=== PATIENT | female | born 1945 | race Caucasian/White ===

== ENCOUNTER → 2016-09-15 | Outpatient (CLI) | payer MEDICARE ==
[2016-09-15 15:04] LABS: Blood Urea Nitrogen 9 mg/dL (7-17); Non-African American GFR(MDRD) >60 (>60 ml/min/1.73 sqM)
--- NOTE | 2016-09-15 15:50 | CT ---
EXAMINATION TYPE: CT brain w con DATE OF EXAM: 09/15/2016 3:32 PM COMPARISON: NONE INDICATION: History of breast cancer. Visual disturbance x 4 days. DLP: 1138.00 mGycm, Automated exposure control for dose reduction was used. CONTRAST: CT scan of the head is performed with IV Contrast, patient injected with 100 mL of Omnipaq ue 300. CT of the brain is performed utilizing 3 mm thick sections through the posterior fossa and 3 mm thick sections through the remaining calvarium. Study is performed within 24 hours of arrival to the hosp ital. No abnormal hyperdensity is present to suggest an acute intracranial hemorrhage. No mass lesion is evident. No acute infarcts are evident. No abnormal enhancement is evident contrast. Ventricles and sulci are appropriate for the patient age. Paranasal sinuses and mastoid air cells within the [id number] are clear. IMPRESSIONS: 1. Normal postcontrast CT brain
== END | disposition home or self-care (01) ==
LOC: RADCTMAIN 14:31
PROVIDERS: ATTEND Internal Medicine Hematology & Oncology
DX: C50.919 Malignant neoplasm of unspecified site of unspecified female breast (principal); H53.10 Unspecified subjective visual disturbances
CPT/HCPCS: 82565; 84520; 70460; 36415; Q9967

== ENCOUNTER 2016-10-10 11:17 | Inpatient (IN) | payer MEDICARE ==
[2016-10-10] MEDS ORDERED: PANTOPRAZOLE 40 MG/10 ML VIAL IVP STA (11:28)
[2016-10-10] MEDS ORDERED: ONDANSETRON 4 MG/2 ML VIAL IVP STA (11:28)
[2016-10-10] MEDS ORDERED: SODIUM CHLORIDE 0.9% 1,000 ML IV STA (11:28)
--- NOTE | 2016-10-10 11:49 | ED ---
General Adult HPI - General Chief complaint: GI Bleed Stated complaint: rectal bleeding (Chemo Patient) Time Seen by Provider: 10/10/16 11:24 Source: patient, RN notes reviewed, old records reviewed Mode of arrival: ambulatory Limitations: no limitations - History of Present Illness Initial comments: This is a 70-year-old female in the ER for evaluation of GI bleeding, blood in stool. Patient's history of being on chemotherapy with CA. Patient had mild bleeding throughout the weekend but became more concerned when she had a bloody bowel movement with diarrhea this morning. Patient's not currently on blood thinners. Has no abdominal pain no vomiting of blood. No prior history of similar issue. Patient does feel mildly lightheaded and dizzy and feels like her heart is racing - Related Data Home Medications Medication Instructions Recorded Confirmed Levothyroxine Sodium [Synthroid] 100 mcg PO DAILY 08/03/16 10/10/16 amLODIPine [Norvasc] 10 mg PO HS 08/03/16 10/10/16 Ondansetron HCl [Zofran] 4 mg PO Q6H PRN 10/10/16 10/10/16 Allergies Allergy/AdvReac Type Severity Reaction Status Date / Time acetaminophen [From Tylenol] Allergy Nausea Verified 10/10/16 12:10 codeine Allergy Nausea & Verified 10/10/16 12:10 Vomiting Review of Systems ROS Statement: Those systems with pertinent positive or pertinent negative responses have been documented in the HPI. ROS Other: All systems not noted in ROS Statement are negative. Past Medical History Past Medical History: Cancer, Hypertension, Thyroid Disorder Additional Past Medical History / Comment(s): BREAST CANCER History of Any Multi-Drug Resistant Organisms: None Reported Past Surgical History: Breast Surgery, Hysterectomy Additional Past Surgical History / Comment(s): BREAST BIOPSY Past Anesthesia/Blood Transfusion Reactions: Motion Sickness Past Psychological History: No Psychological Hx Reported Smoking Status: Former smoker Past Alcohol Use History: None Reported Additional Past Alcohol Use History / Comment(s): STARTED SMOKING AT AGE 42 AND QUIT AGE 43 Past Drug Use History: None Reported - Past Family History Mother Family Medical History: Cancer Additional Family Medical History / Comment(s): MELENOMA Sister(s) Family Medical History: Cancer Additional Family Medical History / Comment(s): BREAST CANCER, RECTAL CANCER ( SISTERS) General Exam Limitations: no limitations General appearance: alert, in no apparent distress, anxious Head exam: Present: atraumatic, normocephalic, normal inspection Eye exam: Present: normal appearance, PERRL, EOMI. Absent: scleral icterus, conjunctival injection, periorbital swelling ENT exam: Present: normal exam, mucous membranes moist Neck exam: Present: normal inspection. Absent: tenderness, meningismus, lymphadenopathy Respiratory exam: Present: normal lung sounds bilaterally. Absent: respiratory distress, wheezes, rales, rhonchi, stridor Cardiovascular Exam: Present: normal rhythm, tachycardia, normal heart sounds. Absent: systolic murmur, diastolic murmur, rubs, gallop, clicks GI/Abdominal exam: Present: soft, normal bowel sounds. Absent: distended, tenderness, guarding, rebound, rigid Extremities exam: Present: normal inspection, full ROM, normal capillary refill. Absent: tenderness, pedal edema, joint swelling, calf tenderness Back exam: Present: normal inspection Neurological exam: Present: alert, oriented X3, CN II-XII intact Psychiatric exam: Present: normal affect, normal mood Skin exam: Present: warm, dry, intact, normal color. Absent: rash Course Vital Signs 10/10/16 10/10/16 10/10/16 11:28 12:09 13:34 Temperature 97.3 F L 97.6 F 98.3 F Pulse Rate 119 H 108 H 109 H Respiratory 18 20 20 Rate Blood Pressure 147/79 125/70 116/61 O2 Sat by Pulse 96 96 96 Oximetry - Reevaluation(s) Reevaluation #1: 10/10/16 14:00 Patient is without bloody bowel movement here in the emergency room Medical Decision Making - Medical Decision Making 70 [address] E with positive GI bleed theo blood in stool, no prior hemoglobin to compare current hemoglobin of 12 to, patient remains tachycardic will resuscitate and admit for monitoring of serial hemoglobins and GI evaluation - Lab Data Result diagrams: 10/10/16 11:45 10/10/16 11:45 Lab Results 10/10/16 10/10/16 10/10/16 Range/Units 11:45 11:45 11:45 WBC 4.7 (3.8-10.6) k/uL RBC 3.93 (3.80-5.40) m/uL Hgb 12.0 (11.4-16.0) gm/dL Hct 35.5 (34.0-46.0) % MCV 90.5 (80.0-100.0) fL MCH 30.4 (25.0-35.0) pg MCHC 33.6 (31.0-37.0) g/dL RDW 19.7 H (11.5-15.5) % Plt Count 244 (150-450) k/uL Neutrophils % 64 % Lymphocytes % 28 % Monocytes % 4 % Eosinophils % 0 % Basophils % 0 % Neutrophils # 3.0 (1.3-7.7) k/uL Lymphocytes # 1.3 (1.0-4.8) k/uL Monocytes # 0.2 (0-1.0) k/uL Eosinophils # 0.0 (0-0.7) k/uL Basophils # 0.0 (0-0.2) k/uL Anisocytosis Slight Macrocytosis Slight PT (9.0-12.0) sec INR (<1.1) APTT (22.0-30.0) sec Sodium 140 (137-145) mmol/L Potassium 4.2 (3.5-5.1) mmol/L Chloride 105 (98-107) mmol/L Carbon Dioxide 23 (22-30) mmol/L Anion Gap 12 mmol/L BUN 7 (7-17) mg/dL Creatinine 0.69 (0.52-1.04) mg/dL Est GFR (MDRD) Af Amer >60 (>60 ml/min/1.73 sqM) Est GFR (MDRD) Non-Af >60 (>60 ml/min/1.73 sqM) Glucose 126 H (74-99) mg/dL Calcium 9.0 (8.4-10.2) mg/dL Magnesium 1.8 (1.6-2.3) mg/dL Total Bilirubin 0.8 (0.2-1.3) mg/dL AST 25 (14-36) U/L ALT 33 (9-52) U/L Alkaline Phosphatase 90 (38-126) U/L Total Creatine Kinase 56 (30-135) U/L CK-MB (CK-2) 0.4 (0.0-2.4) ng/mL CK-MB (CK-2) Rel Index 0.7 Troponin I 0.030 (0.000-0.034) ng/mL Total Protein 6.6 (6.3-8.2) g/dL Albumin 3.6 (3.5-5.0) g/dL Lipase 118 (23-300) U/L 10/10/16 Range/Units 11:45 WBC (3.8-10.6) k/uL RBC (3.80-5.40) m/uL Hgb (11.4-16.0) gm/dL Hct (34.0-46.0) % MCV (80.0-100.0) fL MCH (25.0-35.0) pg MCHC (31.0-37.0) g/dL RDW (11.5-15.5) % Plt Count (150-450) k/uL Neutrophils % % Lymphocytes % % Monocytes % % Eosinophils % % Basophils % % Neutrophils # (1.3-7.7) k/uL Lymphocytes # (1.0-4.8) k/uL Monocytes # (0-1.0) k/uL Eosinophils # (0-0.7) k/uL Basophils # (0-0.2) k/uL Anisocytosis Macrocytosis PT 10.2 (9.0-12.0) sec INR 1.0 (<1.1) APTT 24.0 (22.0-30.0) sec Sodium (137-145) mmol/L Potassium (3.5-5.1) mmol/L Chloride (98-107) mmol/L Carbon Dioxide (22-30) mmol/L Anion Gap mmol/L BUN (7-17) mg/dL Creatinine (0.52-1.04) mg/dL Est GFR (MDRD) Af Amer (>60 ml/min/1.73 sqM) Est GFR (MDRD) Non-Af (>60 ml/min/1.73 sqM) Glucose (74-99) mg/dL Calcium (8.4-10.2) mg/dL Magnesium (1.6-2.3) mg/dL Total Bilirubin (0.2-1.3) mg/dL AST (14-36) U/L ALT (9-52) U/L Alkaline Phosphatase (38-126) U/L Total Creatine Kinase (30-135) U/L CK-MB (CK-2) (0.0-2.4) ng/mL CK-MB (CK-2) Rel Index Troponin I (0.000-0.034) ng/mL Total Protein (6.3-8.2) g/dL Albumin (3.5-5.0) g/dL Lipase (23-300) U/L Disposition Clinical Impression: Gastrointestinal hemorrhage, Breast cancer, left breast Disposition: ADMITTED IP TO THIS HOSP Condition: Fair Referrals: Jossue Galloway DO [Primary Care Provider] - 1-2 days
[2016-10-10 11:54] LABS: Anisocytosis Slight; Basophils % (A) 0 %; CH 30.4; CHCM 33.8; Eosinophils % (A) 0 %; HCT 35.5 % (34.0-46.0); HDW 3.17; Luc # (Auto) 0.19; Luc % (Auto) 4; Lymphocytes # (A) 1.3 k/uL (1.0-4.8); Lymphocytes % (A) 28 %; MCH 30.4 pg (25.0-35.0); MCHC 33.6 g/dL (31.0-37.0); MCV 90.5 fL (80.0-100.0); Macrocytosis Slight; Mean Platelet Volume 7.5; Monocytes # (A) 0.2 k/uL (0-1.0); Monocytes % (A) 4 %; Neutrophils % (A) 64 %; RBC 3.93 m/uL (3.80-5.40); RDW 19.7 % (11.5-15.5); WBC 4.7 k/uL (3.8-10.6); WBC (Perox) 4.81
[2016-10-10 12:04] LABS: Prothrombin Time 10.2 sec (9.0-12.0)
[2016-10-10 12:10] LABS: ALT 33 U/L (9-52); AST 25 U/L (14-36); Alkaline Phosphatase 90 U/L (38-126); Anion Gap 12 mmol/L; Blood Urea Nitrogen 7 mg/dL (7-17); Carbon Dioxide 23 mmol/L (22-30); Chloride 105 mmol/L (98-107); Glucose 126 mg/dL (74-99); Magnesium 1.8 mg/dL (1.6-2.3); Non-African American GFR(MDRD) >60 (>60 ml/min/1.73 sqM); Potassium 4.2 mmol/L (3.5-5.1); Sodium 140 mmol/L (137-145); Total Bilirubin 0.8 mg/dL (0.2-1.3); Total Protein 6.6 g/dL (6.3-8.2)
[2016-10-10 12:45] LABS: Creatine Kinase MB 0.4 ng/mL (0.0-2.4); Troponin I 0.03 ng/mL (0.000-0.034)
[2016-10-10] MEDS ORDERED: SODIUM CHLORIDE 0.9% 1,000 ML IV ONE (13:58)
[2016-10-10] MEDS ORDERED: ONDANSETRON 4 MG TAB PO PRN (22:44)
[2016-10-10] MEDS: amLODIPine 10 MG TAB PO SCH (23:09)
[2016-10-11] MEDS: LEVOTHYROXINE 100 MCG TAB PO SCH (05:53)
[2016-10-11 06:44] LABS: Anisocytosis Slight; CH 30.4; HCT 31.5 % (34.0-46.0); HDW 3.11; HGB 10.1 gm/dL (11.4-16.0); MCH 29.5 pg (25.0-35.0); MCHC 31.9 g/dL (31.0-37.0); MCV 92.6 fL (80.0-100.0); Macrocytosis Slight; Mean Platelet Volume 7.3; RBC 3.41 m/uL (3.80-5.40); RDW 19.9 % (11.5-15.5); WBC 4.2 k/uL (3.8-10.6)
--- NOTE | 2016-10-11 08:39 | P.CONS ---
History of Present Illness - Reason for Consult Consult date: 10/11/16 Bloody diarrhea Requesting physician: Steve Combs - History of Present Illness 70-year-old female patient of Dr. Jossue Cesar recently diagnosed with left breast carcinoma June 2016 status post chemotherapy 1 month presents with persistent loose bowel movements/diarrhea for the last month. Patient has been averaging 3 loose stools daily since starting chemotherapy yellow color in nature. Intermittent usage of antidiarrheals with some improvement. Yesterday she had a grossly bloody red loose bowel movement without clots 1. Additional bowel movements since then are yellow in color with flecks of red. Denies fever , chills, hematemesis, melena, or abdominal pain. Approximately 10-12 pound weight loss over last month with decreased appetite. No history of rectal bleeding. No history of colonoscopy. No recent antibiotics. White count 4.7. Hemoglobin 12 on admission currently 10.1. Platelet 220. INR 1.0. BUN 7. Creatinine 0.6. Review of Systems Constitutional: Denies fever, chills, sweats, weight gain, or loss. HEENT: Negative for migraines, blurred vision or loss, earaches, drainage, tinnitus, oral mucosal lesions, dysphagia, or odynophagia. CARDIAC: Hypertension. Negative for chest pain, arrhythmias, or palpitation. RESPIRATORY: Negative for shortness of breath, hemoptysis, cough, or sputum production. GI: See HPI for pertinent findings. : Negative for hematuria, urgency, frequency, polyuria, or dysuria. GYNc: Denies possibility of . Negative vaginal discharge. MUSCULOSKELETAL: Negative for muscle aches, swelling, arthritis, and arthralgias. NEUROLOGIC: Negative for stroke or TIA. ENDOCRINE: Hypothyroidism. SKIN: Negative for rash or itching. PSYCHIATRIC: Negative history for depression and anxiety All systems: negative (See HPI) Past Medical History Past Medical History: Cancer, Hypertension, Thyroid Disorder Additional Past Medical History / Comment(s): L BREAST CANCER, hypothyroid History of Any Multi-Drug Resistant Organisms: None Reported Past Surgical History: Breast Surgery, Hysterectomy Additional Past Surgical History / Comment(s): L BREAST BIOPSY x2 (some tissue removed), R mediport Past Anesthesia/Blood Transfusion Reactions: Motion Sickness, Postoperative Nausea & Vomiting (PONV) Past Psychological History: No Psychological Hx Reported Additional Psychological History / Comment(s): Pt resides with her spouse. She is independent. Smoking Status: Former smoker Past Alcohol Use History: Rare Additional Past Alcohol Use History / Comment(s): STARTED SMOKING AT AGE 42 AND QUIT AGE 43 Past Drug Use History: None Reported - Past Family History Mother Family Medical History: Cancer Additional Family Medical History / Comment(s): MELENOMA Sister(s) Family Medical History: Cancer Additional Family Medical History / Comment(s): BREAST CANCER, RECTAL CANCER ( SISTERS) Medications and Allergies Home Medications Medication Instructions Recorded Confirmed Type Levothyroxine Sodium [Synthroid] 100 mcg PO DAILY 08/03/16 10/10/16 History amLODIPine [Norvasc] 10 mg PO HS 08/03/16 10/10/16 History Ondansetron HCl [Zofran] 4 mg PO Q6H PRN 10/10/16 10/10/16 History Allergies Allergy/AdvReac Type Severity Reaction Status Date / Time acetaminophen [From Tylenol] Allergy Nausea Verified 10/10/16 12:10 codeine Allergy Nausea & Verified 10/10/16 12:10 Vomiting Physical Exam Vitals: Vital Signs Temp Pulse Pulse Resp BP BP Pulse Ox 10/11/16 03:47 97.8 F 115 H 20 112/71 93 L 10/11/16 00:00 98.1 F 113 H 20 138/73 92 L 10/10/16 20:00 97.9 F 114 H 20 137/79 92 L 10/10/16 16:03 97.2 F L 111 H 20 149/89 94 L 10/10/16 15:38 98.3 F 109 H 20 154/83 95 10/10/16 14:45 108 H 20 115/69 96 Intake and Output 10/10/16 10/11/16 10/11/16 22:59 06:59 14:59 Intake Total 1900 Balance 1900 Intake: Intake, IV Titration 1900 Amount Sodium Chloride 0.9% 1, 900 000 ml @ 100 mls/hr IV . Q10H ONE Rx#:[id number] Sodium Chloride 0.9% 1, 1000 000 ml @ 999 mls/hr IV . Q1H1M STA Rx#:[id number] Other: # Voids 1 1 Weight 115.2 kg General appearance: The patient is alert, oriented, in no acute distress. HET: Head is normocephalic and atraumatic. Pupils are equal and reactive. Oropharynx is clear without lesions. Neck: Supple without lymphadenopathy. Trachea midline. Heart: S1 S2. Regular rate and rhythm. RACW mediport without erythema or drainage. Lungs: No crackles or wheezes are heard. Abdomen: Soft, nontender, nondistended with bowel sounds. No peritoneal signs. No palpable organomegaly or masses. Extremities: Normal skin color and turgor. No cyanosis, rash, ulceration, clubbing, or edema. Radial and pedal pulses are 2/4 bilaterally. Neurological: No focal deficits. Strength and sensation are grossly intact. Results CBC & Chem 7: 10/11/16 06:20 10/10/16 11:45 Labs: Abnormal Lab Results - Last 24 Hours (Table) 10/11/16 Range/Units 06:20 RBC 3.41 L (3.80-5.40) m/uL Hgb 10.1 L (11.4-16.0) gm/dL Hct 31.5 L (34.0-46.0) % RDW 19.9 H (11.5-15.5) % Assessment and Plan (1) Rectal bleeding Narrative/Plan: 70 year old with chronic diarrhea x 1 month with recent chemotherapy for left breast carcinoma presents with bloody diarrhea x 1 day without abdominal pain. Possible infectious colitis possible inflammatory possible ischemic. No history of colonoscopy. Status: Acute (2) Diarrhea Status: Acute (3) Breast cancer, left breast Status: Acute (4) Anemia Narrative/Plan: Multifactorial with recent chemotherapy and component of acute blood loss. Status: Acute Plan: 1. Stool studies including C. difficle testing if negative will proceed with colonoscopy. If C. difficle is positive outpatient colonoscopy once infection has resolved. 2. Diet as tolerated. Monitor CBC. 3. Will follow with you. Thank you for this kind referral and the opportunity to participate in the care of your patient. This consultation was discussed with Dr. Montero. The impression and plan of care have been directed as dictated.
--- NOTE | 2016-10-11 13:37 | HP ---
DATE OF ADMISSION: 10/10/2016 PRESENTING COMPLAINT: Bloody stool. HISTORY OF PRESENTING COMPLAINT: This is a very pleasant 70-year-old patient who follows with Dr. Cesar as her family doctor and Dr. Quinoenz as her oncologist. Patient was diagnosed with left breast cancer in June of 2016, started with chemotherapy in July. Patient was having 3 to 4 bowel movements a day. Patient has large blood in the stool with abdominal cramping 24 hour duration. Denies any fever. No nausea or vomiting. Though patient has decreased appetite. The patient admitted for the same. Patient's other chronic stable conditions include hypertension, hypothyroidism. Patient's at the bedside. REVIEW OF SYSTEMS: CONSTITUTIONAL: Tired, loss of appetite. HEENT: Decreased hearing, loss of hair. RESPIRATORY: None. CARDIOVASCULAR: None. GASTROINTESTINAL: As above. GENITOURINARY: None. MUSCULOSKELETAL: None. DERMATOLOGIC: None. HEMATOLOGIC: None. LYMPHATICS: None. NEUROLOGICAL: None. Past medical history of left breast cancer, hypertension, hypothyroid. PAST SURGICAL HISTORY: Left breast biopsy, hysterectomy, right-sided Mediport. SOCIAL HISTORY: . Patient does not smoke. Alcohol rarely. Family history of melanoma. HOME MEDICATIONS: 1. Norvasc 10 mg q.h.s. 2. Zofran 4 mg p.o. q.6 p.r.n. 3. Synthroid 100 mcg a day. Allergies to TYLENOL and CODEINE, both causing nausea or vomiting. ON EXAMINATION: VITAL SIGNS ON PRESENTATION: Temperature 97.3, pulse 119, respiration 18, blood pressure 147/79, pulse ox 96% on room air. GENERAL APPEARANCE: Overweight, BMI 36.4, sitting up, comfortable. EYES: Pupils equal. Conjunctivae normal. HENT: Alopecia. NECK: JVD not raised. Mass not palpable. RESPIRATORY: Effort normal. LUNGS: Fair air entry. CARDIOVASCULAR: First and second sounds normal. No edema. ABDOMEN: Soft, minimal tenderness. No guarding or rigidity. Liver and spleen not palpable. LYMPHATIC: No lymph node palpable in neck or axillae. PSYCHIATRY: Alert and oriented x3. Mood and affect normal. NEUROLOGICAL: Pupils equal. Cranial nerves grossly intact. Power and sensation grossly intact. INVESTIGATIONS: White count 4.7, hemoglobin 12, repeat is 10.1. Potassium 4.2. ASSESSMENT: 1. Acute gastrointestinal bleed in a patient who is probably immunosuppressed on chemotherapy likely acute enterocolitis in the absence of fever, white count though could be immunosuppressed, ( ) with antibiotics. 2. Obesity, body mass index 36.4. 3. Essential hypertension. 4. Hypothyroidism. 5. 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 6. Acute blood loss anemia from gastrointestinal bleed, hemoglobin is down 2 units. PLAN: Patient empirically put on IV Zosyn. GI is consulted. Home medications are resumed. Hold off on any DVT prophylaxis because of GI bleeding. Care was discussed in detail with the patient and at the bedside.
[2016-10-11] MEDS: PIPERACILLIN-TAZOBACTAM 3.375 GM in DEXTROSE/WATER 1 50ML.BAG IVPB SCH ×2 (15:12→20:31)
[2016-10-11] MEDS: amLODIPine 10 MG TAB PO SCH (20:31)
[2016-10-12] MEDS: PIPERACILLIN-TAZOBACTAM 3.375 GM in DEXTROSE/WATER 1 50ML.BAG IVPB SCH (05:58)
[2016-10-12] MEDS: LEVOTHYROXINE 100 MCG TAB PO SCH (05:59)
[2016-10-12 06:29] LABS: Anisocytosis Slight; CH 30.9; CHCM 33.5; HCT 30.9 % (34.0-46.0); HDW 3.11; HGB 10.2 gm/dL (11.4-16.0); MCH 30.6 pg (25.0-35.0); MCHC 32.9 g/dL (31.0-37.0); Macrocytosis Slight; Mean Platelet Volume 8.1; RBC 3.32 m/uL (3.80-5.40); RDW 19.9 % (11.5-15.5)
--- NOTE | 2016-10-12 09:16 | P.PN ---
Subjective Principal diagnosis: bloody diarrhea 70-year-old female recently diagnosed with left breast carcinoma receiving chemotherapy presents with one-day history of bloody diarrhea. Clostridium difficile toxin not detected. Patient is requesting discharge today. She had 3 stools yesterday that were yellow in color. Hemoglobin 10.2. Outpatient colonoscopy has been scheduled for next week. Objective - Vital Signs Vital signs: Vital Signs Temp 97.7 F 10/12/16 04:00 Pulse 106 H 10/12/16 04:00 Resp 20 10/12/16 04:00 BP 146/78 10/12/16 04:00 Pulse Ox 92 L 10/12/16 04:00 Intake & Output 10/11/16 10/12/16 10/12/16 18:59 06:59 18:59 Intake Total 100 120 Balance 100 120 Weight 115.7 kg Intake: Intake, IV Titration 100 Amount Piperacillin-Tazobactam 3 100 .375 gm In Dextrose/Water 1 50ml.bag @ 12.5 mls/hr IVPB Q8H RADHA Rx#: [id number] Oral 120 Other: # Voids 1 # Bowel Movements 1 - Exam General appearance: The patient is alert, oriented, in no acute distress. HET: Head is normocephalic and atraumatic. Pupils are equal and reactive. Oropharynx is clear without lesions. Neck: Supple without lymphadenopathy. Trachea midline. Heart: S1 S2. Regular rate and rhythm. Mediport without erythema or drainage. Lungs: No crackles or wheezes are heard. Abdomen: Soft, nontender, nondistended with bowel sounds. No peritoneal signs. No palpable organomegaly or masses. Extremities: Normal skin color and turgor. No cyanosis, rash, ulceration, clubbing, or edema. Radial and pedal pulses are 2/4 bilaterally. Neurological: No focal deficits. Strength and sensation are grossly intact. - Labs CBC & Chem 7: 10/12/16 06:20 10/10/16 11:45 Labs: Abnormal Lab Results - Last 24 Hours (Table) 10/12/16 Range/Units 06:20 RBC 3.32 L (3.80-5.40) m/uL Hgb 10.2 L (11.4-16.0) gm/dL Hct 30.9 L (34.0-46.0) % RDW 19.9 H (11.5-15.5) % Assessment and Plan (1) Rectal bleeding Narrative/Plan: 70 year old with chronic diarrhea x 1 month with recent chemotherapy for left breast carcinoma presents with bloody diarrhea x 1 day without abdominal pain. Possible infectious colitis possible inflammatory possible ischemic. No history of colonoscopy. Clostridium difficile toxin not detected. Status: Acute (2) Diarrhea Status: Acute (3) Breast cancer, left breast Status: Acute (4) Anemia Narrative/Plan: Multifactorial with recent chemotherapy and component of acute blood loss. Status: Acute Plan: 1. Outpatient colonoscopy scheduled for 10/19/2016 at [facility] with Dr. Montero. Bowel prep prescription provided. 2. Diet as tolerated. Patient was advised to return to hospital if rectal bleeding recurs or worsens. Assessment and plan of care discussed with Dr. Montero.
[2016-10-12 10:32] VITALS: BP 138/84; PULSE 114; RESP 18; TEMP 97.4
--- NOTE | 2016-10-13 20:01 | DS ---
DATE OF ADMISSION: 10/10/2016 DATE OF DISCHARGE: 10/12/2016 FINAL DIAGNOSES: 1. Possibly acute colitis in an immunosuppressed patient. 2. Obesity, body mass index of 36.4. 3. Essential hypertension. 4. Hypothyroidism. 5. 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 6. Acute blood loss anemia from GI bleed. 7. Left breast cancer undergoing chemotherapy. HOSPITAL COURSE: This is a very pleasant lady undergoing chemotherapy by Dr. Quinonez presented with bloody bowel movements and some abdominal pain felt to be colitis, resolved. Hemoglobin did drop. It was stable at 10.2 at time of discharge. Seen by Dr. Montero from GI. Okay to discharge. On exam, lungs are clear. CARDIOVASCULAR: First and second seconds are normal. Care was discussed with the patient and the . Questions were answered. Patient has started to advance the diet. DISCHARGE MEDICATIONS: 1. Synthroid 100 mcg p.o. daily. 2. Norvasc 10 mg p.o. q.h.s. 3. Zofran 4 mg q.6 p.r.n. 4. Augmentin 875, 1 tablet p.o. q.12, [address] Jossue Cesar in one week, Dr. Quinonez in [address] Montero will be doing a colonoscopy on the patient at [facility] this coming Monday. Discharge planning more than 35 minutes.
== END 2016-10-12 13:31 | disposition home or self-care (01) | DRG 392 ==
LOC: EC 11:17 → 6ICU 13:58 → 6SEL 14:59
PROVIDERS: ADMIT Hospitalist; ATTEND Hospitalist
DX: K52.9 Noninfective gastroenteritis and colitis, unspecified (principal); D62 Acute posthemorrhagic anemia; C50.912 Malignant neoplasm of unspecified site of left female breast; K92.2 Gastrointestinal hemorrhage, unspecified; I10 Essential (primary) hypertension; E03.9 Hypothyroidism, unspecified; L65.9 Nonscarring hair loss, unspecified; Z92.21 Personal history of antineoplastic chemotherapy; Z87.891 Personal history of nicotine dependence; Z90.710 Acquired absence of both cervix and uterus; Z79.899 Other long term (current) drug therapy; Z80.3 Family history of malignant neoplasm of breast
CPT/HCPCS: 36415; 80053; 80299; 82272; 82550; 82553; 83690; 83735; 84484; 85025; 85027; 85610; 85730; 87045; 87046; 87324; 89055; 96361; 96374; 96375; 99285

== ENCOUNTER → 2017-01-11 | Outpatient (CLI) | payer MEDICARE ==
--- NOTE | 2017-01-12 07:44 | MM ---
Reason for exam: follow-up at short interval from prior study. Last mammogram was performed 6 months ago. History: Patient has history of breast cancer at age 70. Family history of breast cancer in sister at age 65. Chemotherapy, December 22, 2016. Benign US biopsy breast VAD RT of the right breast, July 26, 2016. Malignant US biopsy breast VAD LT of the left breast, July 15, 2016. Physical Findings: Nurse Summary: 3-4cm nodule in the left breast at 9-10 o'clock (nurse kp). MG 3D Diag Mammo W/Cad [place] Bilateral CC and MLO view(s) were taken. Prior study comparison: July 26, 2016, right breast MG diagnostic mammo RT wo CAD. July 15, 2016, left breast MG diagnostic mammo LT wo CAD. There are scattered fibroglandular densities. Previous ultrasound biopsy in the right and left breast. There is chronic nodularity in the right breast. Left mass decreased from 67 x 55 x 64mm to 58 x 53 x 53mm. This finding has decreased in size when compared with previous exams. These results were verbally communicated with the patient and result sheet given to the patient on 01/11/17. ASSESSMENT: Known biopsy proven malignancy, BI-RAD 6 RECOMMENDATION: Surgical consultation of the left breast. Called with mammographic findings and has scheduled an appointment for the patient for 01/13/17 at 11:[address] Betancourt. PRELIMINARY REPORT CALLED AND FAXED TO DR. BETANCOURT ON 01/12/17.
== END | disposition home or self-care (01) ==
LOC: RADMAMWWP 15:33
PROVIDERS: ATTEND Surgery
DX: Z08 Encounter for follow-up examination after completed treatment for malignant neoplasm (principal); Z85.3 Personal history of malignant neoplasm of breast
CPT/HCPCS: G0204; G0279

== ENCOUNTER 2017-01-31 07:30 | Day surgery (SDC) | payer MEDICARE ==
[2017-01-26 15:12] VITALS: BMI 36.1
[~2017-01-31 07:30] MED LIST: ALPRAZolam 0.25 MG TAB PO PRN; DEXAMETHASONE SOD PHOSPHATE 10 MG/ML 1 ML VIAL IV ONE; FAMOTIDINE 20 MG/2 ML VIAL IV PRN; HEPARIN SODIUM,PORCINE 5,000 UNIT/ML 1 ML VIAL SQ ONE; HYDROmorphone 1 MG/ML 1 ML SYRINGE IVP PRN; LIDOCAINE 1% 20 ML VIAL (10MG/ML) FOR IV START INTRADERMA PRN; ONDANSETRON 4 MG/2 ML VIAL IVP PRN; Pre Op ABX Message 1 EACH MISC MISCELLANE ONE; SCOPOLAMINE 1.5MG/72HR PATCH TRANSDERM ONE
[2017-01-31] MEDS: LACTATED RINGERS 1,000 ML IV SCH ×2 (07:39→23:33)
[2017-01-31 08:06] LABS: Basophils # (A) 0.1 k/uL (0-0.2); Basophils % (A) 1 %; CH 32.2; CHCM 32.5; Eosinophils # (A) 0.2 k/uL (0-0.7); Eosinophils % (A) 2 %; HCT 45.9 % (34.0-46.0); HDW 3.24; HGB 14.9 gm/dL (11.4-16.0); Luc # (Auto) 0.22; Luc % (Auto) 3; Lymphocytes # (A) 3.1 k/uL (1.0-4.8); Lymphocytes % (A) 40 %; MCH 32.2 pg (25.0-35.0); MCHC 32.5 g/dL (31.0-37.0); MCV 99.1 fL (80.0-100.0); Mean Platelet Volume 7.3; Monocytes # (A) 0.5 k/uL (0-1.0); Monocytes % (A) 6 %; Neutrophils # (A) 3.8 k/uL (1.3-7.7); Neutrophils % (A) 48 %; RBC 4.63 m/uL (3.80-5.40); RDW 14.1 % (11.5-15.5); WBC 7.8 k/uL (3.8-10.6); WBC (Perox) 7.23
--- NOTE | 2017-01-31 08:46 | NM ---
EXAMINATION TYPE: NM sentinel node injection DATE OF EXAM: 01/31/2017 COMPARISON: NONE HISTORY: Left breast cancer TECHNIQUE AND FINDINGS: The procedure of sentinel lymph node injection was explained to the patient. The benefits, alternatives, and risks were discussed. An informed consent was then obtained. Overlying skin is cleaned with sterile alcohol. Lidocaine buffered with bicarbonate was used as anes thetic into the skin and subcutaneous tissue surrounding the nipple. Following this, 540 uCi Tc 99m Filtered Sulfur Colloid was injected into 4 equivalent doses at 12, 3, 6, and 9:00 position surroundi ng the left nipple intradermally. The injection sites were massaged by systems technologist for 10 minutes after injection. T he patient tolerated the procedure well without any immediate complication. The patient was kept in the radiology department for short stay after the procedure and then taken to surgery for surgical pr ocedure what is presumed intraoperative gamma probe will be used for sentinel lymph node detection. IMPRESSION: Left breast radiotracer injection for sentinel node localization as above.
[2017-01-31] MEDS ORDERED: HEPARIN SODIUM,PORCINE 5,000 UNIT/ML 1 ML VIAL SQ ONE (08:54)
[2017-01-31] MEDS ORDERED: HYDROmorphone (PF) 1 MG/ML ONE (11:06)
[2017-01-31] MEDS ORDERED: fentaNYL (PF) 50 MCG/ML 2 ML AMP ONE (11:06)
[2017-01-31] MEDS ORDERED: LABETALOL 5 MG/ML VIAL MDV ONE (11:06)
[2017-01-31] MEDS ORDERED: ROCURONIUM BROMIDE 10 MG/ML 10 ML VIAL IV ONE (11:06)
[2017-01-31] MEDS ORDERED: MIDAZOLAM 2 MG/2 ML VIAL ONE (11:06)
[2017-01-31] MEDS ORDERED: KETOROLAC 30 MG/ML 1 ML VIAL ONE (11:06)
[2017-01-31] MEDS ORDERED: LIDOCAINE 1% INJ 10MG/ML (20 ML MDV) ONE (11:06)
[2017-01-31] MEDS ORDERED: PROPOFOL 10 MG/ML 20 ML VIAL IV ONE (11:06)
[2017-01-31] MEDS ORDERED: SUCCINYLCHOLINE CHLORIDE 100 MG/5 ML SYR IV ONE (11:06)
[2017-01-31] MEDS ORDERED: LACTATED RINGERS 1,000 ML IV ONE (11:40)
[2017-01-31] MEDS ORDERED: SODIUM CHLORIDE 0.9% 50 ML with ceFAZolin 2,000 MG IV ONE ×2 (11:45)
[2017-01-31] MEDS ORDERED: METHYLENE BLUE 50 MG/10 ML AMPUL INJ ONE (11:48)
[2017-01-31] MEDS ORDERED: LIDOCAINE 1% INJ 10MG/ML (10 ML MDV) SQ ONE (11:50)
--- NOTE | 2017-01-31 13:17 | P.OP ---
Date of Procedure: 01/31/17 Preoperative Diagnosis: Left breast cancer Postoperative Diagnosis: Left breast cancer Procedure(s) Performed: Left breast lumpectomy, methylene blue injection for sentinel node biopsy, sentinel node biopsy Implants: Anesthesia: ESTELLAA Surgeon: Radha Betancourt Estimated Blood Loss (ml): 10 IV fluids (ml): 400 Pathology: other ([place] lymph node biopsy, lumpectomy) Condition: stable Disposition: PACU Indications for Procedure: Left breast cancer Operative Findings: Approximately 8 cm mass in the inferior medial aspect of the left breast, sentinel lymph nodes negative for cancer on frozen section Description of Procedure: Denae Hudson was taken to the operating room and following induction of general anesthesia the periareolar area on the left was was cleaned using alcohol and 5 mL of half-strength methylene blue were injected. The breast was then massaged for 3 minutes. The breast and the left axilla were then prepped and draped in a sterile fashion. The axilla was approached initially. Using the Ricky counter the area of greatest activity was identified and an incision was made. This was carried down to a radioactive blue lymph node. This was removed and the 10 second count on the lymph node was 1208. Following this examination in the axilla revealed a second smaller lymph node that was also radioactive and blue. This was removed and a 10 second count on this was 1568. Both were sent for frozen section evaluation which was negative for cancer. The Ricky counter was used to evaluate the axilla and the 10 second count on the axilla was 4. After we were assured that hemostasis was attained the area of the breast was approached. The palpable mass was identified in the lower inner quadrant of the left breast. A skin incision was made over the area of the mass and skin flaps were developed superiorly and inferiorly. However it was noted that the tissue was very close to the anterior margin and therefore a portion of skin where the tumor extended close to the skin was removed and dissected as well; Disection was carried down to the pectoralis major muscle and the lesion was removed from the pectoralis major muscle. The lesion itself was approximately 8 to 10 cm in size. Titanium clips were placed for marking the area for postoperative radiation. It was not felt that BioSorb would be a good option at this location secondary to the closeness of the skin. After the lesion had been removed it was painted for orientation and the case was discussed with pathology. The specimen was sent fresh to pathology. Pathology also evaluated and felt that the margins were grossly negative. Following this after being assured that hemostasis was attained several 3-0 Vicryl sutures were placed medially. A Ricardo-Teague drain was placed. The deep tissues were closed with 3-0 Vicryl suture followed by closure of the skin with a deep Vicryl suture and a 4-0 Monocryl skin suture. Following this instruments were changed appropriately and the skin incision at the axilla was closed using a 4-0 Monocryl suture as well. All instrument and sponge counts were correct at the end of the case. Patient tolerated procedure in stable condition.
--- NOTE | 2017-01-31 13:19 | P.DS ---
Providers Attending physician: Radha Betancourt Primary care physician: Stated None Plan - Discharge Summary New Discharge Prescriptions: No Action amLODIPine [Norvasc] 10 mg PO HS Levothyroxine Sodium [Synthroid] 100 mcg PO QAM Discharge Medication List Levothyroxine Sodium [Synthroid] 100 mcg PO QAM 08/03/16 [History] amLODIPine [Norvasc] 10 mg PO HS 08/03/16 [History] Follow up Appointment(s)/Referral(s): Radha Betancourt MD [STAFF PHYSICIAN] - 1 Week Activity/Diet/Wound Care/Special Instructions: Teaching drain care Do not drive today Do not drive if taking pain medication Wear bra at all times Discharge Disposition: HOME SELF-CARE
[2017-01-31] MEDS ORDERED: ONDANSETRON 4 MG/2 ML VIAL IVP ONE (13:56)
[2017-01-31] MEDS ORDERED: PROMETHAZINE INJ 25 MG/ML 1 ML VIAL IVPB ONE (14:21)
[2017-01-31] MEDS ORDERED: METOCLOPRAMIDE 5 MG/ML 2 ML VIAL IVP ONE (15:08)
[2017-01-31] MEDS ORDERED: ONDANSETRON 4 MG/2 ML VIAL IVP PRN (15:57)
[2017-01-31] MEDS ORDERED: DEXTROSE 5%-0.45% NACL 1,000 ML IV ONE (16:02)
[2017-01-31] MEDS ORDERED: ACETAMINOPHEN TAB 325 MG TAB PO PRN (16:08)
[2017-01-31] MEDS ORDERED: ACETAMINOPHEN IV (For NPO) 1,000 MG in EMPTY BAG 1 BAG IVPB PRN (16:14)
[2017-01-31] MEDS ORDERED: amLODIPine 10 MG TAB PO SCH (21:00)
[2017-02-01] MEDS ORDERED: LEVOTHYROXINE 100 MCG TAB PO SCH (06:30)
[2017-02-01 07:42] VITALS: BP 131/81; PULSE 95; RESP 18; TEMP 97
--- NOTE | 2017-02-01 07:52 | P.PN ---
Subjective Patient is postoperative day #1 from a left lumpectomy and sentinel node biopsy. Patient has no complaints at this time. Patient is not nauseated this morning. She has had no output from her drain. Objective - Vital Signs Vital signs: Vital Signs Temp 97.0 F L 02/01/17 07:41 Pulse 95 02/01/17 07:41 Resp 18 02/01/17 07:41 BP 131/81 02/01/17 07:41 Pulse Ox 94 L 02/01/17 07:41 Intake & Output 01/31/17 02/01/17 02/01/17 18:59 06:59 18:59 Intake Total 1750 Output Total 10 1050 Balance 1740 -1050 Weight 114.305 kg Intake: IV 1750 Output: Urine 1050 Estimated Blood Loss 10 Other: Voiding Method Toilet # Voids 1 - Constitutional General appearance: Present: obese - Respiratory Respiratory: bilateral: CTA - Cardiovascular Rhythm: regular Heart sounds: normal: S1, S2 - Integumentary Integumentary Comment(s): Incisions clean and dry MARIVEL drain no output - Psychiatric Psychiatric: Present: A&O x's 3, appropriate affect, intact judgment & insight - Labs CBC & Chem 7: 01/31/17 07:04 Assessment and Plan Plan: Impression/plan: 1. Patient postop day #1 from left breast lumpectomy and sentinel node biopsy 2. Patient's nausea has resolved Plan: 1. Discharge home to be followed as an outpatient
--- NOTE | 2017-02-01 07:53 | P.DS ---
Providers Attending physician: Radha Betancourt Consults: 01/31/17 15:54 Consult Physician Stat Consulting Provider: Steve Combs Consult Reason/Comments: medical management Do you want consulting provider notified?: Yes Primary care physician: Stated None Plan - Discharge Summary New Discharge Prescriptions: No Action amLODIPine [Norvasc] 10 mg PO HS Levothyroxine Sodium [Synthroid] 100 mcg PO QAM Discharge Medication List Levothyroxine Sodium [Synthroid] 100 mcg PO QAM 08/03/16 [History] amLODIPine [Norvasc] 10 mg PO HS 08/03/16 [History] Follow up Appointment(s)/Referral(s): Radha Betancourt MD [STAFF PHYSICIAN] - 02/09/17 12:30 pm Patient Instructions/Handouts: *Surgery [facility] - ([facility]) Breast Biopsy Instructions, *Sur[facility] - (Anesthesia) Discharge Instructions Outpatient Surgery, Ricardo-Teague Drain Care (DC), Breast Lumpectomy (DC) Activity/Diet/Wound Care/Special Instructions: Teaching drain care Do not drive today Do not drive if taking pain medication Wear bra at all times Discharge Disposition: HOME SELF-CARE
--- NOTE | 2017-02-01 09:36 | CONS ---
DATE OF CONSULTATION: 01/31/2017 PRESENTING COMPLAINT: Left breast surgery. REASON FOR CONSULTATION: Medical management requested Dr. Jessika Betancourt. CONSULTATION: This is a very pleasant 71-year-old patient of Dr. Cesar with known history of hypothyroid and hypertension. The patient has undergone left breast lumpectomy, with sentinel lymph node biopsy. Postprocedure pain is controlling and did tolerate some sherbert. No chest pain or shortness of breath. REVIEW OF SYSTEMS: CONSTITUTIONAL: None. HEENT: None. RESPIRATORY: None. CARDIOVASCULAR: None. GASTROINTESTINAL: None. MUSCULOSKELETAL: None. DERMATOLOGICAL: As above. LYMPHATICS: None. PSYCHIATRY: None. NEUROLOGICAL: None. Past history of hypertension, hypothyroid, breast cancer. PAST SURGICAL HISTORY: Breast cancer, reference of cancer type with hypothyroid, hypertension. Also ( ) chemo, will be starting radiation treatment. PAST SURGICAL HISTORY: Breast surgery, hysterectomy. SOCIAL HISTORY: . Does not smoke. Alcohol rarely. Family history of melanoma. HOME MEDICATIONS: Norvasc 10 mg q.h.s., Synthroid 100 mcg p.o. q.h.s. Allergies to CODEINE. On examination, temperature 97, pulse 90, respiration 16, blood pressure 108/71, pulse ox 97% on 3 L. GENERAL APPEARANCE: Well built, BMI of 36.2, sitting up, not in distress. EYES: Pupils equal. Conjunctivae normal. HEENT: Oral cavity normal. NECK: JVD not raised. Mass not palpable. RESPIRATORY: Effort normal. LUNGS: Fair air entry. CARDIOVASCULAR: First and second sounds normal. No edema. There is tenderness over the left chest wall. ABDOMEN: Soft, nontender. Liver and spleen not palpable. LYMPHATIC: No lymph node palpable in the neck. PSYCHIATRY: Alert and oriented x3. Mood and affect is normal. NEUROLOGICAL: Pupils are equal, cranial nerves grossly intact, power and sensation grossly intact. INVESTIGATIONS: White count 7.8, hemoglobin 14.9. ASSESSMENT: 1. Left breast lumpectomy with some sentinel lymph node removal. 2. Obesity; body mass index ( ). 3. Hypothyroidism. 4. Essential hypertension. PLAN: Patient's home medications will be renewed. Patient has PE and DVT prophylaxis. Care was discussed with the patient. Dressing and pain control as per Dr. Jessika Betancourt. Patient should follow with the family doctor upon discharge. Thank you, Dr. Jessika Betancourt.
== END 2017-02-01 09:52 | disposition home or self-care (01) ==
LOC: OR 07:30 → 3SUR 13:51 → OR 02-01 09:52
PROVIDERS: ATTEND Surgery
DX: C50.912 Malignant neoplasm of unspecified site of left female breast (principal); N60.32 Fibrosclerosis of left breast; I10 Essential (primary) hypertension; E03.9 Hypothyroidism, unspecified; E66.9 Obesity, unspecified; Z68.36 Body mass index [BMI] 36.0-36.9, adult; Z79.899 Other long term (current) drug therapy; Z88.5 Allergy status to narcotic agent; Z87.891 Personal history of nicotine dependence
CPT/HCPCS: 93005; 85025; 88342; 88331; 88307; 88341; 38792; 19301; 38500; A9541; J2250; J1644; J1100; J2550; J2765; J2405; J2001; J3010; J1885; J1170; J0690; J0131; J0330; J2704; Q9968

== ENCOUNTER → 2017-11-16 | Outpatient (CLI) | payer MEDICARE ==
--- NOTE | 2017-11-16 13:30 | MM ---
Reason for exam: additional evaluation requested from prior study. Last mammogram was performed 10 months ago. History: Patient is postmenopausal and has history of breast cancer at age 70. Family history of breast cancer in sister at age 65. Lumpectomy of the left breast, January 31, 2017. Chemotherapy, December 22, 2016. Benign US biopsy breast VAD RT of the right breast, July 26, 2016. Malignant US biopsy breast VAD LT of the left breast, July 15, 2016. Radiation therapy of the left breast, January 2016. Took progesterone for 2 months. Physical Findings: Nurse did not find any significant physical abnormalities on exam. MG 3D Diag Mammo W/Cad [place] Bilateral CC and MLO view(s) were taken. Prior study comparison: January 11, 2017, bilateral MG 3d diag mammo w/cad [place]. July 26, 2016, right breast MG diagnostic mammo RT wo CAD. The breast tissue is heterogeneously dense. This may lower the sensitivity of mammography. Finding #1: New architectural distortion in the lower inner quadrant, posterior position of the left breast consistent with known internal lumpectomy. Finding #2: There are typically benign round, linear calcifications in both breasts. There is new moderate skin thickening and central edema. These results were verbally communicated with the patient and result sheet given to the patient on 11/16/17. ASSESSMENT: Benign, BI-RAD 2 RECOMMENDATION: Follow-up diagnostic mammogram of both breasts in 1 year. Manage on a clinical basis with regard to left skin thickening with mastitis versus radiation changes.
== END | disposition home or self-care (01) ==
LOC: RADMAMWWP 11:23
PROVIDERS: ATTEND Radiology Radiation Oncology
DX: C50.212 Malignant neoplasm of upper-inner quadrant of left female breast (principal); Z85.3 Personal history of malignant neoplasm of breast
CPT/HCPCS: 77066; G0279

== ENCOUNTER → 2018-05-24 | Outpatient (CLI) | payer MEDICARE ==
[2018-05-24 09:23] VITALS: BP 117/81; PULSE 105; RESP 16; TEMP 97.8; BMI 39.4
--- NOTE | 2018-05-24 09:47 | P.GSHP ---
History of Present Illness H&P Date: 05/24/18 Patient is a 72-year-old white female status post left [place]pect[place] [id number]. The patient had chemotherapy prior to her surgery she then had surgery and this was followed by radiation therapy. The original size of the tumor was approximately 8 cm and sentinel node biopsy was negative. Hormone studies on [id number] revealed it to be ER positive, HI negative, and HER-2 negative. The ER-positive stain was only 5-10% and felt to be focally positive. She was told by medical oncology she did not need hormonal therapy. The patient's last mammogram was on 320 [id number]. At that time there were architectural distortion changes in the lower inner quadrant of the left breast consistent with known lumpectomy. This was felt to be BIRADS 2 and no lesions of concern were noted in the right breast. The patient was recommended to undergo bilateral mammogram in 1 year. The patient at this time denies any new masses or lumps in her breasts. She denies any trauma to the breast or infection of the breast. She denies any nipple discharge or skin changes for which she is concerned. The patient with no new complaints of pain in her breasts. Family history: 1.sister: breast cancer in 60's 2. sister: near rectum 3. 2nd sister: breast cancer 4. mother: melanoma 5. father: skin cancer on arm Hormonal: menarche: 14 : 3, children 3, first at 23, breast fed: none menopause: partial hysterectomy at 39, left both ovaries BCP: less than 2 years hormones: Premarin, this caused her breasts to swell so she used them for only several months Past surgical history: 1. Left breast lumpectomy and sentinel node biopsy 2. Partial hysterectomy Past medical history: 1. Short of breath 2. Hypertension 3. Thyroid disorder Social History: smoke: none Alcohol: Negative Drugs: Negative - Constitutional Constitutional: Denies chills, Denies fever - EENT Comment: wears glasses Eyes: denies blurred vision, denies pain Ears: bilateral: decreased hearing, tinnitus Ears, nose, mouth and throat: Denies headache, Denies sore throat - Breasts Breasts: bilateral: as per HPI - Cardiovascular Cardiovascular: Reports high blood pressure - Respiratory Comment: Shortness of breath with activity, following with her primary care doctor - Gastrointestinal Gastrointestinal: Denies abdominal pain, Denies diarrhea, Denies nausea, Denies vomiting - Genitourinary (Female) Genitourinary: Denies dysuria, Denies hematuria - Menstruation Menstruation: Reports post hysterectomy, Reports postmenopausal - Musculoskeletal Comment: back pain at times Musculoskeletal: Denies myalgias - Integumentary Integumentary: Denies pruritus, Denies rash - Neurological Comment: numbness related to chemotherapy in fingers and toes Neurological: Reports numbness, Denies weakness - Psychiatric Psychiatric: Denies anxiety, Denies depression - Endocrine Comment: hypothyroid Endocrine: Reports fatigue - Hematologic/Lymphatic Comment: none - Allergic/Immunologic Allergic/Immunologic: Reports as per HPI Past Medical History Past Medical History: Cancer, Hypertension, Thyroid Disorder Additional Past Medical History / Comment(s): L BREAST CANCER Dx February 2016- tx chemo-last chemo December 22- tx taxol,will be starting radiation tx, hypothyroid, SOB with activity,get red spots to skin History of Any Multi-Drug Resistant Organisms: None Reported Past Surgical History: Breast Surgery, Hysterectomy Additional Past Surgical History / Comment(s): L BREAST BIOPSY x2 (some tissue removed), R mediport Past Anesthesia/Blood Transfusion Reactions: Motion Sickness, Postoperative Nausea & Vomiting (PONV) Additional Past Anesthesia/Blood Transfusion Reaction / Comment(s): no hx blood transfusion Past Psychological History: No Psychological Hx Reported Additional Psychological History / Comment(s): Pt resides with her spouse. She is independent. Smoking Status: Former smoker Past Alcohol Use History: Rare Additional Past Alcohol Use History / Comment(s): STARTED SMOKING AT AGE 42 AND QUIT AGE 43,smoked only few months Past Drug Use History: None Reported - Past Family History Mother Family Medical History: Cancer Additional Family Medical History / Comment(s): MELENOMA Sister(s) Family Medical History: Cancer Additional Family Medical History / Comment(s): 1)TWO SISTERS WITH BREAST CANCER , A THIRD SISTER WITH RECTAL CANCER Father Family Medical History: Cancer Additional Family Medical History / Comment(s): skin Medications and Allergies Home Medications Medication Instructions Recorded Confirmed Type Levothyroxine Sodium [Synthroid] 100 mcg PO QAM 08/03/16 05/24/18 History amLODIPine [Norvasc] 20 mg PO HS 08/03/16 05/24/18 History Biotin 5 mg PO DAILY 05/24/18 05/24/18 History Cyanocobalamin (Vitamin B-12) 2,500 mcg PO 05/24/18 History [Vitamin B12] Multivitamin [Multivitamins Adult 1 each PO DAILY 05/24/18 05/24/18 History Gummies] Allergies Allergy/AdvReac Type Severity Reaction Status Date / Time codeine Allergy Nausea & Verified 05/24/18 09:12 Vomiting Surgical - Exam Vital Signs BMI: 39.5 Temp Pulse Resp BP Pulse Ox 97.8 F 105 H 16 117/81 93 L 05/24/18 09:15 05/24/18 09:15 05/24/18 09:15 05/24/18 09:15 05/24/18 09:15 - General obese - Eyes normal ocular movement left: erythema - ENT no hearing loss, no congestion - Neck no masses, trachea midline - Respiratory normal respiratory effort, clear to auscultation - Cardiovascular Rhythm: regular Heart Sounds: normal: S1, S2 - Abdomen Abdomen: soft, bowel sounds - Integumentary no rash, no abnormal pigmentation - Neurologic no disoriented, no combative - Musculoskeletal normal gait, normal posture - Psychiatric oriented to time, oriented to person, oriented to place, speech is normal, memory intact breast exam: right breast: Multi-positional exam no dominant masses or nodules of concern, breast is very large, patient wears 50 4D Right axilla: No adenopathy of concern Left breast: Multi-positional exam no dominant masses or nodules of concern, well-healed scar from prior lumpectomy, there is some erythema which the patient states intermittently comes in her breast but no evidence of infection Left axilla: Results Bilateral mammogram 320 [id number] results reviewed BIRADS 2 Assessment and Plan Assessment: Impression: 1. Patient status post left breast lumpectomy no evidence of recurrent cancer 2. Very large bilateral breast with back pain 3. Shortness of breath 4. Hypertension 5. Hypothyroidism Plan: 1. Repeat bilateral mammogram October 2018 with appointment at that time 2. Medical management of medical conditions 3. Patient to call us immediately if she has any questions or concerns Cc: Dr. Jossue Cesar
== END | disposition home or self-care (01) ==
LOC: WWCWWP 08:59
PROVIDERS: ATTEND Surgery
DX: Z53.9 Procedure and treatment not carried out, unspecified reason (principal)

== ENCOUNTER → 2018-08-02 | Outpatient (CLI) | payer MEDICARE ==
--- NOTE | 2018-08-02 14:56 | CT ---
EXAMINATION TYPE: CT chest w con DATE OF EXAM: 08/02/2018 COMPARISON: 07/13/2016 HISTORY: SOB CT DLP: 606.3 mGycm, Automated exposure control for dose reduction was used. CONTRAST: Performed injected with 100 mL of Isovue 300. TECHNIQUE: Axial images were obtained at 5 mm thick sections. Reconstructed images are reviewed on [facility] computer in the coronal plane. FINDINGS: Portion of the thyroid visualized is normal. No suspicious lung nodules or focal infiltrates are present. No enlarged mediastinal or hilar adenopathy is evident. The ascending aorta diameter at the level o f the main pulmonary artery is 3.5 cm. The main pulmonary artery diameter at the bifurcation is 3.[address] sections are obtained through the upper abdomen. There appears to be herniation of fat lef t lung base. There is marked elevation of the wording of the diaphragm is expected to up to the level of the hilum. Bowel stomach and mesenteric fat are evident within this. The opening measures approxi mately 6 cm in the coronal plane images. Findings can be compatible with a morganii hernia. Note is made of a 9.2 cm cyst measuring 12 Hounsfield units extending from the posterior superior rig ht kidney. IMPRESSIONS: 1. No acute pulmonary process. 2. 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
== END | disposition home or self-care (01) ==
LOC: RADCTMAIN 13:51
PROVIDERS: ATTEND Radiology Radiation Oncology
DX: Q79.0 Congenital diaphragmatic hernia (principal); C50.212 Malignant neoplasm of upper-inner quadrant of left female breast
CPT/HCPCS: 82565; 84520; 71260; 36415; Q9967

== ENCOUNTER → 2018-11-19 | Outpatient (CLI) | payer MEDICARE ==
--- NOTE | 2018-11-19 11:52 | MM ---
Reason for exam: additional evaluation requested from prior study. Last mammogram was performed 1 year ago. History: Patient is postmenopausal and has history of breast cancer at age 70. Family history of breast cancer in sister at age 65. Lumpectomy of the left breast, January 31, 2017. Chemotherapy, December 22, 2016. Benign US biopsy breast VAD RT of the right breast, July 26, 2016. Malignant US biopsy breast VAD LT of the left breast, July 15, 2016. Radiation therapy of the left breast, January 2016. Took progesterone for 2 months. Physical Findings: Nurse did not find any significant physical abnormalities on exam. MG 3D Diag Mammo W/Cad [place] Bilateral CC and MLO view(s) were taken. CV view(s) were taken of the right breast. Prior study comparison: November 16, 2017, bilateral MG 3d diag mammo w/cad [place]. January 11, 2017, bilateral MG 3d diag mammo w/cad [place]. The breast tissue is heterogeneously dense. This may lower the sensitivity of mammography. Finding #1: There is skin thickening architectural distortion in the left breast consistent with known treatement changes redemonstrated. Finding #2: There are typically benign round, linear calcifications in the right breast. Previous mammotome biopsy in the right breast. There is a chronic nodularity in the right breast. Asymmetric breast tissue, left clips presumed scar tissue. There is dystrophic calcifications in the left breast. These results were verbally communicated with the patient and result sheet given to the patient on 11/19/18. ASSESSMENT: Benign, BI-RAD 2 RECOMMENDATION: Follow-up diagnostic mammogram of both breasts in 1 year.
== END | disposition home or self-care (01) ==
LOC: RADMAMWWP 10:48
PROVIDERS: ATTEND Surgery
DX: Z08 Encounter for follow-up examination after completed treatment for malignant neoplasm (principal); Z85.3 Personal history of malignant neoplasm of breast
CPT/HCPCS: 77066; G0279; 77062

== ENCOUNTER → 2018-11-29 | Outpatient (CLI) | payer MEDICARE ==
[2018-11-29 09:23] VITALS: BP 131/83; PULSE 92; RESP 18; TEMP 97.9; BMI 39.4
--- NOTE | 2018-11-29 09:51 | P.GSHP ---
History of Present Illness H&P Date: 11/29/18 Chief Complaint: left breast cancer treated in 2017 Denae is a 72-year-old white female status post left breast lumpectomy and sentinel node biopsy in January 2017. The patient had chemotherapy prior to her surgery and then had surgery followed by radiation therapy. The original size of her tumor was approximately 8 cm, sentinel node biopsy was negative. We will studies were positive FL negative and HER-2 negative. The stain was only 5-10% and it was felt to be focally positive. She was told by medical oncology she did not need hormonal therapy. The patient's last mammogram was on 4118 which was benign BIRADS 2 and follow-up mammogram of both breasts in 1 year was recommended. The patient at this time has no complaints related to her breast. She does complain of some fatigue. She is also told she has a hiatal hernia. The fatigue is not new. At the present time she is not taking any treatment related to the breast cancer. Family history: 1. sister: Breast cancer in 60s 2. sister: Rectal cancer 3. Another sister with breast cancer 4. Mother: Melanoma 5. Father: Skin cancer on his arm Portal history: Menarche: 14 : 3, 3 children, first a 23, breast fed: Negative Menopause: Partial hysterectomy at 39 left both ovaries Postoperative post: Less than 2 years Hormones: Premarin discussed her passes well tissue lesion for several months is not presently using anything Surgical history: 1. Left breast lumpectomy sentinel node biopsy 2. Partial hysterectomy Past medical history: 1. Shortness of breath 2. Hypertension 3. Thyroid disorder 4. Fatigue 5. Hiatal hernia. Social history: Smoke: Negative Alcohol: Negative Drugs: Negative - Constitutional Comment: fatigue Constitutional: Reports sweats, Denies chills, Denies fever - EENT Comment: wears glasses Eyes: denies blurred vision, denies pain Ears: deny: decreased hearing, tinnitus Ears, nose, mouth and throat: Denies headache, Denies sore throat - Breasts Breasts: bilateral: as per HPI - Cardiovascular Cardiovascular: Reports high blood pressure - Respiratory Comment: bronchitis in the past Respiratory: Denies cough, Denies 7 - Gastrointestinal Comment: hiatal hernia, she had a colonoscopy about 2 years ago as per patient - Genitourinary (Female) Genitourinary: Denies dysuria, Denies hematuria - Menstruation Menstruation: Reports post hysterectomy - Musculoskeletal Musculoskeletal: Denies myalgias - Integumentary Integumentary: Reports pruritus, Denies rash - Neurological Neurological: Denies numbness, Denies weakness - Psychiatric Psychiatric: Denies anxiety, Denies depression - Endocrine Comment: hypothyroid Endocrine: Reports fatigue - Hematologic/Lymphatic Comment: none - Allergic/Immunologic Comment: codeine Past Medical History Past Medical History: Cancer, Hypertension, Thyroid Disorder Additional Past Medical History / Comment(s): L BREAST CANCER Dx February 2016- tx chemo-last chemo December 22- tx taxol,will be starting radiation tx, hypothyroid,SOB with activity,get red spots to skin History of Any Multi-Drug Resistant Organisms: None Reported Past Surgical History: Breast Surgery, Hysterectomy Additional Past Surgical History / Comment(s): L BREAST BIOPSY x2 (some tissue removed), R mediport Past Anesthesia/Blood Transfusion Reactions: Motion Sickness, Postoperative Nausea & Vomiting (PONV) Additional Past Anesthesia/Blood Transfusion Reaction / Comment(s): no hx blood transfusion Past Psychological History: No Psychological Hx Reported Additional Psychological History / Comment(s): Pt resides with her spouse. She is independent. Smoking Status: Former smoker Past Alcohol Use History: Rare Additional Past Alcohol Use History / Comment(s): STARTED SMOKING AT AGE 42 AND QUIT AGE 43,smoked only few months Past Drug Use History: None Reported - Past Family History Mother Family Medical History: Cancer Additional Family Medical History / Comment(s): MELENOMA Sister(s) Family Medical History: Cancer Additional Family Medical History / Comment(s): 1)TWO SISTERS WITH BREAST CANCER, A THIRD SISTER WITH RECTAL CANCER Father Family Medical History: Cancer Additional Family Medical History / Comment(s): skin Medications and Allergies Home Medications Medication Instructions Recorded Confirmed Type Levothyroxine Sodium [Synthroid] 100 mcg PO QAM 08/03/16 11/29/18 History amLODIPine [Norvasc] 20 mg PO HS 08/03/16 11/29/18 History Multivitamin [Multivitamins Adult 1 each PO DAILY 05/24/18 11/29/18 History Gummies] Allergies Allergy/AdvReac Type Severity Reaction Status Date / Time codeine Allergy Nausea & Verified 11/29/18 09:24 Vomiting Surgical - Exam Vital Signs Temp Pulse Resp BP Pulse Ox 97.9 F 92 18 131/83 91 L 11/29/18 09:17 11/29/18 09:17 11/29/18 09:17 11/29/18 09:17 11/29/18 09:17 BMI 39.5 - General obese - Eyes normal ocular movement - ENT no hearing loss, no congestion - Neck no masses, trachea midline - Respiratory normal respiratory effort, clear to auscultation - Cardiovascular Rhythm: regular Heart Sounds: normal: S1, S2 - Abdomen Abdomen: soft, non tender, no guarding, no rigid, no rebound - Integumentary normal turgor - Neurologic no disoriented, no combative - Musculoskeletal normal gait, normal posture - Psychiatric oriented to time, oriented to person, oriented to place, speech is normal, memory intact breast exam: right breast: Multi-positional exam fibrocystic changes, no dominant masses or nodules of concern in the right breast Under the right breast there appears to be a fungal infection Right axilla: Multi-positional exam no dominant masses or nodules of concern Left breast: Multi-positional exam fibrocystic changes, no dominant masses or nodules of concern, skin changes related to radiation, there is some erythematous modeling pattern over the breast which is believed to be related to radiation changes, some thickening of the skin also related most likely to radiation changes Fungal infection under the left breast Breast size 54DD Left axilla: Multi-positional exam no dominant masses or nodules of concern Results Mammogram results reviewed Assessment and Plan Assessment: Impression: 1. Patient status post left breast lumpectomy radiation therapy no evidence of recurrent cancer 2. Very large bilateral breasts with back pain 3. Shortness of breath 4. Hypertension 5. Hypothyroidism 6. Hiatal hernia Plan: 1. Repeat physician exam in 1 months time to monitor fungal infection 2. Nystatin cream to treat fungal infection 3. Repeat physician exam in 6 months time to monitor no recurrence of breast cancer 4. Repeat bilateral mammogram in 1 year 5. Medical management of medical conditions We have talked about breast reduction secondary to the large size of her breasts and her back pain, at this time she is not interested. CC: Dr. Galloway
== END ==
LOC: WWCWWP 08:52
PROVIDERS: ATTEND Surgery
DX: Z53.9 Procedure and treatment not carried out, unspecified reason (principal)

== ENCOUNTER → 2019-01-03 | Outpatient (CLI) | payer MEDICARE ==
[2019-01-03 13:14] VITALS: BP 137/89; PULSE 107; RESP 22; TEMP 97.8; BMI 39.4
== END | disposition home or self-care (01) ==
LOC: WWCWWP 12:42
PROVIDERS: ATTEND Surgery
DX: Z53.9 Procedure and treatment not carried out, unspecified reason (principal)

== ENCOUNTER → 2019-07-11 | Outpatient (CLI) | payer MEDICARE ==
[2019-07-11 09:03] VITALS: BP 147/83; PULSE 110; RESP 16; TEMP 98; BMI 38.5
--- NOTE | 2019-07-11 09:27 | P.PN ---
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 This was following neoadjuvant chemotherapy with AC followed by T. She then underwent radiation therapy which he completed on . On pathology she was noted to have a single focus of invasive cancer measuring less than 2 mm of the metaplastic subtype with an overall grade it cannot be determined. She is not taking any anti-hormone therapy. The patient at this time states that she has a mild rash under her breast. She does not feel any lumps or masses in her breast. She is complaining of some shortness of breath. She has had the shortness of breath for the past several years. She was seen by DR. Quijano and was told she had a hiatal hernia. At this time she is not interested in following with a surgeon. Computed tomography scan was performed of the chest on [id number] which showed a large marganii hernia into the left lower lung field. The patient's last bilateral mammogram was 4118. This was benign BIRADS 2. Family History: 1. Cystoscopy: Breast cancer in 60s 2. Sr.: Rectal cancer 3. Another sister with breast cancer 4. Mother: Melanoma 5: Father: Skin cancer on his arms Hormonal history: Menarche: 14 , first live at 23, patient did not breast feed Menopause: Partial hysterectomy at 39 both ovaries left hormones: premarin for several months 20 years ago, Systems: HEENT: Decreased hearing Lungs: Shortness of breath, this is attributed to large hiatal hernia Cardiovascular: Hypertension GI: Constipation intermittently : Status post hysterectomy Musculoskeletal: Negative Endocrine: Hypothyroid Neurologic: Negative Integument: Rash under her breasts ALLERGIES: codiene Hematologic: Negative Objective - Constitutional General appearance: Present: obese - EENT Eyes: Present: EOMI ENT: Present: hard of hearing - Neck Neck: Present: normal ROM - Respiratory Respiratory: bilateral: CTA - Cardiovascular Rhythm: regular Heart sounds: normal: S1, S2 - Gastrointestinal General gastrointestinal: Present: normal bowel sounds, soft - Integumentary Integumentary Comment(s): radiation changes of the left breast - Musculoskeletal Musculoskeletal: Present: gait normal - Psychiatric Psychiatric: Present: A&O x's 3, appropriate affect, intact judgment & insight - Additional findings Additional findings: Breast examination: Right breast: Multi-positional exam no dominant masses or nodules of concern Right axilla: No adenopathy of concern Left breast: Well-healed scar from prior lumpectomy, radiation changes Under both breasts some mild skin changes most likely fungal infection Left axilla: No adenopathy of concern BRA 54 DD Ptosis grade 3 Assessment and Plan Assessment: Impression: 1. Patient status post left breast lumpectomy for a metaplastic cancer 2016 2. Last bilateral mammogram 4119 benign BIRADS 2 3. Fibrocystic breast changes 4. Radiation changes left breast 5. Decreased hearing 6. morgagni hernia 7. Hypertension 8. Completed neoadjuvant chemotherapy 9. Completed radiation therapy 10. Asymmetry of the breast Plan: 1. Strongly recommended referral to general surgery secondary to hiatal hernia, names of surgeons given to the patient at this time patient has declined 2. Consider surgery for symmetry abnormality of the breast/patient states she would prefer that both breasts be removed we will consider this in the future 3. Medical management of medical conditions 4. Nystatin under breast as needed 5. Follow-up in 6 months After discussion with the patient regarding the fact that adenopathy she has any recurrent breast cancer. She is doing well with this at the present time. She does have probable fungal infection and the breast and prescription for nystatin is given. Additionally I discussed with the patient the asymmetry of her breast and she states that she would prefer both breasts be removed rather than asymmetry procedure to be performed. She is going to consider this in the future. I've also had a discussion with her about the importance of seeing a general surgeon for the hiatal hernia. I've talked about the risk of incarceration and my recommendation would be for prophylactic repair. At the present time the patient has declined referral to general surgery. She understands the risks and benefits and understands she develops chest pain she should go immediately to the emergency department. Cc: Dr. Cesar Approx. 25 minutes
== END ==
LOC: WWCWWP 08:38
PROVIDERS: ATTEND Surgery
DX: Z53.9 Procedure and treatment not carried out, unspecified reason (principal)

== ENCOUNTER → 2020-03-05 | Outpatient (CLI) | payer MEDICARE ==
--- NOTE | 2020-03-05 11:43 | MM ---
Reason for exam: additional evaluation requested from prior study. Last mammogram was performed 1 year and 3 months ago. History: Patient is postmenopausal and has history of breast cancer at age 70. Family history of breast cancer in sister at age 71 and breast cancer in sister at age 65. Lumpectomy of the left breast, January 31, 2017. Chemotherapy, December 22, 2016. Benign US biopsy breast VAD RT of the right breast, July 26, 2016. Malignant US biopsy breast VAD LT of the left breast, July 15, 2016. Radiation therapy of the left breast, January 2016. Took progesterone for 2 months. Physical Findings: Nurse did not find any significant physical abnormalities on exam. MG 3D Diag Mammo W/Cad [place] Bilateral CC and MLO view(s) were taken. Prior study comparison: November 19, 2018, bilateral MG 3d diag mammo w/cad [place]. November 16, 2017, bilateral MG 3d diag mammo w/cad [place]. The breast tissue is heterogeneously dense. This may lower the sensitivity of mammography. No significant new findings when compared with previous films. These results were verbally communicated with the patient and result sheet given to the patient on 03/05/20. ASSESSMENT: Benign, BI-RAD 2 RECOMMENDATION: Follow-up diagnostic mammogram of both breasts in 1 year.
== END | disposition home or self-care (01) ==
LOC: RADMAMWWP 10:58
PROVIDERS: ATTEND Internal Medicine Hematology & Oncology
DX: Z09 Encounter for follow-up examination after completed treatment for conditions other than malignant neoplasm (principal); Z85.3 Personal history of malignant neoplasm of breast
CPT/HCPCS: 77066; G0279; 77062

== ENCOUNTER → 2021-03-09 | Outpatient (CLI) | payer MEDICARE ==
--- NOTE | 2021-03-09 11:30 | MM ---
Reason for exam: additional evaluation requested from prior study. Last mammogram was performed 1 year ago. History: Patient is postmenopausal and has history of breast cancer at age 70. Family history of breast cancer in sister at age 71 and breast cancer in sister at age 65. Lumpectomy of the left breast, January 31, 2017. Chemotherapy, December 22, 2016. Benign US biopsy breast VAD RT of the right breast, July 26, 2016. Malignant US biopsy breast VAD LT of the left breast, July 15, 2016. Radiation therapy of the left breast, January 2016. Took progesterone for 2 months. Physical Findings: Nurse did not find any significant physical abnormalities on exam. MG 3D Diag Mammo W/Cad [place] Bilateral CC and MLO view(s) were taken. Prior study comparison: March 05, 2020, bilateral MG 3d diag mammo w/cad [place]. November 19, 2018, bilateral MG 3d diag mammo w/cad [place]. The breast tissue is heterogeneously dense. This may lower the sensitivity of mammography. Right biopsy clip. Left post operative and skin thickening. These results were verbally communicated with the patient and result sheet given to the patient on 03/09/21. ASSESSMENT: Benign, BI-RAD 2 RECOMMENDATION: Follow-up diagnostic mammogram of both breasts in 1 year.
== END | disposition home or self-care (01) ==
LOC: RADMAMWWP 10:49
PROVIDERS: ATTEND Radiology Radiation Oncology
DX: R92.2 Inconclusive mammogram (principal); Z78.0 Asymptomatic menopausal state; Z80.3 Family history of malignant neoplasm of breast; Z85.3 Personal history of malignant neoplasm of breast
CPT/HCPCS: 77066; G0279; 77062

== ENCOUNTER → 2021-11-15 | Outpatient (CLI) | payer MEDICARE ==
--- NOTE | 2021-11-15 13:52 | CT ---
EXAMINATION TYPE: CT abdomen w con DATE OF EXAM: 11/15/2021 COMPARISON: CT dated 08/02/2018 HISTORY: abdominal pain, nausea, hernia CT DLP: 1664.6 mGycm Automated exposure control for dose reduction was used. TECHNIQUE: Helical acquisition of images was performed from the lung bases through the top of iliac crest to include entire abdomen. CONTRAST: Performed with Oral Contrast and with IV Contrast, patient injected with 100 mL of Isovue 300. FINDINGS: There is a large hiatal hernia. The hernial includes the entire stomach, the gastroesophageal junctio n, pancreatic body and tail, colonic splenic flexure and distal aspect of the transverse colon as wel l as the gastric and splenic vessels. No convincing evidence of obstruction yet this could cause obst ruction in the future. The oral contrast is seen in the small bowel in the abdomen and pelvis. The he rnial neck measures 11.2 x 5.7 cm. The hernia causes significant mass effect on the heart which appea rs displaced anteriorly and to the right side. The esophagus is not dilated. Chronic atelectasis is s een in the lung base bilaterally. Suspected few hepatic hypodensities/cysts measuring up to 6 mm, appreciated in 2016 CT abdomen. No ra diodense gallbladder calculi. No splenic focal lesion. No pancreatic lesion. A left adrenal nodule me asuring 22 mm compared to in 2016 CT scan, possibly representing an enlarging adrenal adenoma. Large multiloculated right renal cyst measuring 16.4 cm without definite calcification, thick septation or solid component. No suspicious renal lesion identified. Scattered arterial atherosclerotic calcifications. The duodenu m is stretched via the hiatal hernia. The superior mesenteric vessels are tethered towards the hernia . No evidence of bowel obstruction. Scattered uncomplicated colonic diverticulosis. No upper abdomina l ascites or suspicious lymphadenopathy.. Degenerative changes of the lumbar spine. No gross aggressi ve bone lesion. IMPRESSION: Very large hiatal hernia containing multiple structures and causing mass effect as detailed above. Re commend surgical consultation. Other incidental findings as described above.
== END | disposition home or self-care (01) ==
LOC: RADCTMAIN 11:28
PROVIDERS: ATTEND Surgery
DX: K44.9 Diaphragmatic hernia without obstruction or gangrene (principal)
CPT/HCPCS: 82565; 84520; 74160; 36415; Q9967

== ENCOUNTER 2021-11-18 09:16 | Day surgery (SDC) | payer MEDICARE ==
[2021-11-15 16:06] VITALS: BMI 34.4
[~2021-11-18 09:16] MED LIST changes: -ALPRAZolam 0.25 MG TAB PO PRN; -DEXAMETHASONE SOD PHOSPHATE 10 MG/ML 1 ML VIAL IV ONE; -FAMOTIDINE 20 MG/2 ML VIAL IV PRN; -HEPARIN SODIUM,PORCINE 5,000 UNIT/ML 1 ML VIAL SQ ONE; -HYDROmorphone 1 MG/ML 1 ML SYRINGE IVP PRN; +LACTATED RINGERS 1,000 ML IV SCH; -LIDOCAINE 1% 20 ML VIAL (10MG/ML) FOR IV START INTRADERMA PRN; -ONDANSETRON 4 MG/2 ML VIAL IVP PRN; -Pre Op ABX Message 1 EACH MISC MISCELLANE ONE; -SCOPOLAMINE 1.5MG/72HR PATCH TRANSDERM ONE
[2021-11-18 10:04] VITALS: TEMP 98.6
[2021-11-18] MEDS ORDERED: LACTATED RINGERS 1,000 ML IV ONE (10:04)
[2021-11-18] MEDS ORDERED: ONDANSETRON 4 MG/2 ML VIAL ONE (10:16)
[2021-11-18] MEDS ORDERED: ONDANSETRON 4 MG/2 ML VIAL IVP ONE (10:17)
--- NOTE | 2021-11-18 10:46 | P.GSHP ---
History of Present Illness H&P Date: 11/18/21 Chief Complaint: Dysphagia, hiatal hernia This a 75-year-old female who was recently diagnosed with a very large hiatal hernia. Patient's had complaints of dysphagia. Her CAT scan shows almost the entire stomach and several other structures within the hiatal hernia. She p resents today for EGD. Past Medical History Past Medical History: Cancer, Hypertension, Thyroid Disorder Additional Past Medical History / Comment(s): HX LEFT BREAST CANCER 2016 - had chemo, taxol, radiation, hypothyroid, SOB with activity, gets red spots on skin. History of Any Multi-Drug Resistant Organisms: None Reported Past Surgical History: Breast Surgery, Hysterectomy Additional Past Surgical History / Comment(s): Left breast biopsy X2, right internal jugular mediport, left breast lumpectomy. Past Anesthesia/Blood Transfusion Reactions: Motion Sickness, Postoperative Nausea & Vomiting (PONV) Additional Past Anesthesia/Blood Transfusion Reaction / Comment(s): No hx blood transfusion. Past Psychological History: No Psychological Hx Reported Smoking Status: Former smoker Past Alcohol Use History: Rare Additional Past Alcohol Use History / Comment(s): STARTED SMOKING AT AGE 42 AND QUIT AGE 43, smoked only few months. Past Drug Use History: None Reported - Past Family History Mother Family Medical History: Cancer Additional Family Medical History / Comment(s): MELENOMA. Sister(s) Family Medical History: Cancer Additional Family Medical History / Comment(s): TWO SISTERS WITH BREAST CANCER, A THIRD SISTER WITH RECTAL CANCER. Father Family Medical History: Cancer Additional Family Medical History / Comment(s): Skin cancer. Medications and Allergies Home Medications Medication Instructions Recorded Confirmed Type Levothyroxine Sodium [Synthroid] 100 mcg PO QAM 08/03/16 11/15/21 History amLODIPine [Norvasc] 20 mg PO QAM 08/03/16 11/15/21 History Multivitamin [Multivitamins Adult 1 each PO QAM 05/24/18 11/15/21 History Gummies] Magnesium 250 mg PO DAILY 11/15/21 11/15/21 History Allergies Allergy/AdvReac Type Severity Reaction Status Date / Time codeine Allergy Nausea & Verified 11/15/21 15:49 Vomiting Surgical - Exam Vital Signs Temp Pulse Resp BP Pulse Ox 98.6 F 89 18 148/96 96 11/18/21 10:03 11/18/21 10:03 11/18/21 10:03 11/18/21 10:03 11/18/21 10:03 - General well developed, well nourished, no distress - Eyes PERRL - ENT normal pinna - Neck no masses - Respiratory normal expansion - Cardiovascular Rhythm: regular - Abdomen Abdomen: soft, non tender Assessment and Plan Assessment: Large hiatal hernia with intrathoracic stomach. Patient will undergo EGD.
[2021-11-18] MEDS ORDERED: PROPOFOL 10 MG/ML 20 ML VIAL IV ONE (10:47)
[2021-11-18] MEDS ORDERED: LIDOCAINE 1% INJ 10MG/ML (20 ML MDV) ONE (10:47)
--- NOTE | 2021-11-18 10:57 | P.OP ---
Date of Procedure: 11/18/21 Preoperative Diagnosis: Dysphagia Hiatal hernia Postoperative Diagnosis: Intrathoracic stomach Large hiatal hernia Procedure(s) Performed: EGD Anesthesia: MAC Surgeon: Lacho Hagan Pathology: none sent Condition: stable Disposition: PACU Description of Procedure: The patient's placed on the endoscopy table in the lateral position. She received IV sedation. The gastroscope was placed oropharynx. The GE junction was at 30 cm. The stomach was visualized. The patient had a completely intrathoracic stomach. The L of the stomach could not be seen due to torsion of the stomach. Scope was withdrawn. The GE junction was at 30 cm.. The distal esophagus was minimal inflamed. The proximal esophagus appeared normal. Scope withdrawn for patient.
[2021-11-18 11:05] VITALS: RESP 16
[2021-11-18 11:32] VITALS: BP 127/76; PULSE 90
== END 2021-11-18 11:45 | disposition home or self-care (01) ==
LOC: ORWHC2ENDO 09:16
PROVIDERS: ATTEND Surgery
DX: K44.9 Diaphragmatic hernia without obstruction or gangrene (principal); I10 Essential (primary) hypertension; E03.9 Hypothyroidism, unspecified; Z85.3 Personal history of malignant neoplasm of breast; Z92.3 Personal history of irradiation; Z92.21 Personal history of antineoplastic chemotherapy; Z79.890 Hormone replacement therapy; Z79.899 Other long term (current) drug therapy; Z88.5 Allergy status to narcotic agent; Z87.891 Personal history of nicotine dependence; Z98.890 Other specified postprocedural states; Z90.710 Acquired absence of both cervix and uterus; Z80.8 Family history of malignant neoplasm of other organs or systems; Z80.0 Family history of malignant neoplasm of digestive organs
CPT/HCPCS: 43235; J2405; J2001; J2704

== ENCOUNTER → 2021-11-29 | Outpatient (CLI) | payer MEDICARE ==
[2021-11-29 14:35] LABS: Basophils # (A) 0.04 X 10*3/uL (0.00-0.10); Basophils % (A) 0.5 %; Eosinophils # (A) 0.03 X 10*3/uL (0.04-0.35); Eosinophils % (A) 0.4 %; HCT 47.7 % (37.2-46.3); HGB 14.9 g/dL (12.0-15.0); Immature Grans, Automated 0.4 %; Lymphocytes # (A) 2.05 X 10*3/uL (0.90-5.00); Lymphocytes % (A) 25.1 %; MCH 28.5 pg (27.0-32.0); MCHC 31.2 g/dL (32.0-37.0); MCV 91.4 fL (80.0-97.0); Mean Platelet Volume 10.8 fL (9.5-12.2); Monocytes # (A) 0.93 X 10*3/uL (0.20-1.00); Monocytes % (A) 11.4 %; NRBC Per 100 WBC 0 /100 WBCS (0.0-0.0); Neutrophils # (A) 5.08 X 10*3/uL (1.80-7.70); Neutrophils % (A) 62.2 %; Platelet Count 279 X 10*3/uL (140-440); RBC 5.22 X 10*6/uL (4.10-5.20); RDW 14.2 % (11.5-14.5); WBC 8.16 X 10*3/uL (4.50-10.00)
== END | disposition home or self-care (01) ==
LOC: LABPAT 07:25
PROVIDERS: ATTEND Surgery
DX: Z01.812 Encounter for preprocedural laboratory examination (principal); R13.19 Other dysphagia
CPT/HCPCS: 36415; 85025; 93005

== ENCOUNTER 2021-12-08 07:03 | Inpatient (IN) | payer MEDICARE ==
[~2021-12-08 07:03] MED LIST changes: +ACETAMINOPHEN TAB 500 MG TAB PO PRN; +DEXAMETHASONE SOD PHOSPHATE 4 MG/ML 1 ML VIAL IV ONE; +HEPARIN SODIUM,PORCINE/PF 5,000 UNIT/0.5 ML SYRINGE SQ PRN; +ONDANSETRON 4 MG/2 ML VIAL IVP ONE
[2021-12-08] MEDS ORDERED: fentaNYL (PF) 50 MCG/ML 2 ML AMP ONE (09:00)
[2021-12-08] MEDS ORDERED: LIDOCAINE 2% INJ 20 MG/ML (2 ML VIAL) ONE (09:00)
[2021-12-08] MEDS ORDERED: SUCCINYLCHOLINE CHLORIDE 100 MG/5 ML SYR IV ONE (09:00)
[2021-12-08] MEDS ORDERED: NEOSTIGMINE 1 MG/ML 10 ML VIAL ONE (09:00)
[2021-12-08] MEDS ORDERED: MIDAZOLAM 2 MG/2 ML VIAL ONE (09:00)
[2021-12-08] MEDS ORDERED: ROCURONIUM 10 MG/ML (5 ML VIAL) IV ONE (09:00)
[2021-12-08] MEDS ORDERED: GLYCOPYRROLATE 0.2 MG/ML 2 ML VIAL ONE (09:00)
[2021-12-08] MEDS ORDERED: PROPOFOL 10 MG/ML 20 ML VIAL IV ONE (09:00)
[2021-12-08] MEDS ORDERED: PHENYLEPHRINE-0.9% NACL SYG 1,000 MCG/10 ML SYRINGE ONE (09:00)
--- NOTE | 2021-12-08 09:22 | P.GSHP ---
History of Present Illness H&P Date: 12/08/21 Chief Complaint: Hiatal hernia with intrathoracic stomach This a 75-year-old female who's developed dysphagia. She is found have a large hiatal hernia with intrathoracic stomach. She presents today for laparoscopic repair. 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; neoadjuvant chemo tx; taxol tx; left breast lumpectomy with SNB 01/31/17; radiation tx; hypothyroid; when eating has trouble breathing; edema feet w/ c/o pain in knees History of Any Multi-Drug Resistant Organisms: None Reported Past Surgical History: Breast Surgery, Hysterectomy Additional Past Surgical History / Comment(s): Left breast biopsy x2 07/15/16 & 08/15/16; right internal jugular mediport 08/05/16; left breast lumpectomy with SND 01/31/17; Colonoscopy; EGD 11/18/21 Past Anesthesia/Blood Transfusion Reactions: Motion Sickness, Postoperative Nausea & Vomiting (PONV) Additional Past Anesthesia/Blood Transfusion Reaction / Comment(s): no hx blood transfusion Smoking Status: Former smoker - Past Family History Mother Family Medical History: Cancer Additional Family Medical History / Comment(s): Melanoma Sister(s) Family Medical History: Cancer Additional Family Medical History / Comment(s): TWO SISTERS WITH BREAST CANCER, A THIRD SISTER WITH RECTAL CANCER. Father Family Medical History: Cancer Additional Family Medical History / Comment(s): Skin cancer. Medications and Allergies Home Medications Medication Instructions Recorded Confirmed Type Levothyroxine Sodium [Synthroid] 100 mcg PO QAM 08/03/16 12/08/21 History amLODIPine [Norvasc] 20 mg PO QAM 08/03/16 12/08/21 History Multivitamin [Multivitamins Adult 1 each PO QAM 05/24/18 12/08/21 History Gummies] Magnesium 250 mg PO DAILY 11/15/21 12/08/21 History Calcium Carbonate [Tums] 500 - 1,000 mg PO QID PRN 12/07/21 12/08/21 History Allergies Allergy/AdvReac Type Severity Reaction Status Date / Time codeine Allergy Nausea & Verified 12/08/21 08:23 Vomiting Surgical - Exam Vital Signs Temp Pulse Resp BP Pulse Ox 97.7 F 111 H 16 144/80 92 L 12/08/21 08:30 12/08/21 08:30 12/08/21 08:30 12/08/21 08:30 12/08/21 08:30 - General well developed, well nourished, no distress - Eyes PERRL - ENT normal pinna - Neck no masses - Respiratory normal expansion - Cardiovascular Rhythm: regular - Abdomen Abdomen: soft, non tender Assessment and Plan Assessment: Hiatal hernia Interestingly Dysphagia We'll perform laparoscopic repair of hiatal hernia.
[2021-12-08] MEDS ORDERED: BUPIVACAINE (PF) 0.25% 30 ML VIAL SQ ONE (09:45)
[2021-12-08] MEDS ORDERED: LACTATED RINGERS 1,000 ML IV ONE ×2 (10:37→11:19)
[2021-12-08] MEDS ORDERED: ONDANSETRON 4 MG/2 ML VIAL IVP PRN (11:19)
[2021-12-08] MEDS ORDERED: NALOXONE 0.4 MG/ML 1 ML VIAL IV PRN (11:19)
[2021-12-08] MEDS ORDERED: METOCLOPRAMIDE 5 MG/ML 2 ML VIAL IVP PRN (11:19)
[2021-12-08] MEDS ORDERED: ALBUTEROL NEBULIZED 2.5 MG/3 ML INHALATION ONE (11:23)
--- NOTE | 2021-12-08 11:26 | P.OP ---
Date of Procedure: 12/08/21 Preoperative Diagnosis: Large paraesophageal hernia with incarcerated stomach colon and omentum Postoperative Diagnosis: Same Procedure(s) Performed: Diagnostic laparoscopy Open repair of paraesophageal hernia with mesh Anesthesia: MAURICE Surgeon: Lacho Hagan Estimated Blood Loss (ml): 150 Pathology: other (Hernia sac) Condition: stable Disposition: PACU
[2021-12-08] MEDS: HYDROmorphone 0.5 MG/0.5 ML SYRINGE IVP PRN ×2 (11:32→11:38)
[2021-12-08] MEDS: KETOROLAC 15 MG/ML 1 ML VIAL IVP SCH ×3 (15:17→23:23)
--- NOTE | 2021-12-08 17:58 | P.CONS ---
History of Present Illness - Reason for Consult Consult date: 12/08/21 Medical Management Requesting physician: Lacho Hagan - History of Present Illness History of Presenting Illness: Patient is a a pleasant 75-year-old female with a past medical history of hypertension, hypothyroidism, and paraesophageal hernia. Patient is currently status post diagnostic laparoscopy with open repair of parasophageal hernia with mesh secondary to findings of large paraesophageal hernia with incarcerated stomach, colon, and omentum. Surgical procedure was completed on 12/08/[address] Hagan. Patient is currently admitted under Gen. surgery team and we have been consulted for medical management. Upon physical examination, patient noted to be slightly cool to touch, previous tympanic temp upon return from OR was 95.6F. Upon reevaluation at 5:09 PM axillary temp 94.0F and oral temp 94.6F. This was doublechecked with two separate thermometers to ensure accuracy. Order placed for Bare hugger at this time until normothermic temperature is obtained. patient denies feeling cold, feeling chilled, or any other complaints. She reports mild postoperative epigastric pain and states, "It feels like I have to burp but it wont come out."patient denies having any headache, lightheadedness, dizziness, chest pain, palpitations, shortness of breath, nausea, vomiting, or experiencing any numbness/tingling/weakness in her extremities. Patient denies history of DVT or PE. She is currently strict NPO until further diet is advanced by General Surgery Team. Patient also having postoperative hypoxia requiring oxygen supplementation of 3 L to maintain SpO2 of 94% as well as postoperative tachycardia with heart rate low 90's-100s. Review of systems: Pertinent positives and negatives as discussed in HPI, a complete review of systems was performed and all other systems are negative. Physical exam: Vital signs reviewed and stable. General: Nontoxic, no distress and appears stated age. Derm: Skin warm and dry, normal coloration for ethnicity. Head: Atraumatic, normocephalic and symmetric. Eyes: EOMs intact, no lid lag, and anicteric sclera Mouth: no lip lesions, mucus membranes moist Cardiovascular: regular rate and rhythm with normal S1S2, no murmur, positive posterior tibial pulses bilaterally, and cap refill < 2 seconds. Lungs: Respirations even, regular, and unlabored on room air. Lungs CTA bilaterally, no rhonchi, no rales, no wheezing, and no accessory muscle usage. Abdominal: soft, nontender to palpation, no guarding, no appreciable organomegaly Ext: ROM intact. No gross muscle atrophy, no edema, no contractures Neuro: Speech clear, face symmetrical and CN II-XII grossly intact with no noted focal neuro deficits Psych: Alert and oriented to person, place, time, and situation. Appropriate and pleasant affect. Assessment and Plan of Care: Postoperative Hypothymia Postoperative Hypoxia Status post open repair of parasophageal hernia with mesh -Order placed for Bear hugger at this time an to be maintained until patient reaches normothermic temperature. -STAT CBC and TSH -Maintain strict NPO until diet is advanced by General Surgery Team. -Continued IV fluid hydration -Continue close monitoring of vital signs -Continue oxygen supplementation as needed to maintain SpO2 of 92% or above, wean once patient tolerates. -Telemetry monitoring. -Encourage incentive spirometry 10-15 times hourly while awake. -DVT prophylaxis, pain management, wound care/postoperative dressing changes per primary admitting general surgery team. -DVT prophylaxis with SCDs at this time. Hypertension -Monitor vital signs, amlodipine held at this time secondary to strict NPO status. Blood pressure is normotensive at this time no need for IV blood pressure medications. We will readdress if needed and patient may resume amlo dipine once okayed by primary admitting general surgery team. Hypothyroidism -TSH -Synthroid held at this time held at this time secondary to strict NPO status. May resume synthroid once okayed by primary admitting general surgery team. Thank you for allowing us to participate in the care of this pleasant patient. Do not hesitate to contact us with questions. Someone can be reached from the [facility] hospitalist group all hours of the day at [phone] or via [employer]. 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; neoadjuvant chemo tx; taxol tx; left breast lumpectomy with SNB 01/31/17; radiation tx; hypothyroid; when eating has trouble breathing; edema feet w/ c/o pain in knees History of Any Multi-Drug Resistant Organisms: None Reported Past Surgical History: Breast Surgery, Hysterectomy Additional Past Surgical History / Comment(s): Left breast biopsy x2 07/15/16 & 08/15/16; right internal jugular mediport 08/05/16; left breast lumpectomy with SND 01/31/17; Colonoscopy; EGD 11/18/21 Past Anesthesia/Blood Transfusion Reactions: Motion Sickness, Postoperative Nausea & Vomiting (PONV) Additional Past Anesthesia/Blood Transfusion Reaction / Comm: no hx blood transfusion Past Psychological History: No Psychological Hx Reported Additional Psychological History / Comment(s): Pt resides with her spouse. She is independent. Smoking Status: Former smoker Past Alcohol Use History: Rare Additional Past Alcohol Use History / Comment(s): Started smoking on/off at age 42, quit age 43, smoked only few months Past Drug Use History: None Reported - Past Family History Mother Family Medical History: Cancer Additional Family Medical History / Comment(s): Melanoma Sister(s) Family Medical History: Cancer Additional Family Medical History / Comment(s): TWO SISTERS WITH BREAST CANCER, A THIRD SISTER WITH RECTAL CANCER. Father Family Medical History: Cancer Additional Family Medical History / Comment(s): Skin cancer. Medications and Allergies Home Medications Medication Instructions Recorded Confirmed Type Levothyroxine Sodium [Synthroid] 100 mcg PO QAM 08/03/16 12/08/21 History amLODIPine [Norvasc] 20 mg PO QAM 08/03/16 12/08/21 History Multivitamin [Multivitamins Adult 1 each PO QAM 05/24/18 12/08/21 History Gummies] Magnesium 250 mg PO DAILY 11/15/21 12/08/21 History Calcium Carbonate [Tums] 500 - 1,000 mg PO QID PRN 12/07/21 12/08/21 History Allergies Allergy/AdvReac Type Severity Reaction Status Date / Time codeine Allergy Nausea & Verified 12/08/21 08:23 Vomiting Physical Exam Vitals: Vital Signs Temp Pulse Pulse Pulse Resp BP BP 12/08/21 14:30 95.6 F L 103 H 16 120/74 12/08/21 13:47 105 H 16 137/71 12/08/21 13:15 98 16 136/69 12/08/21 13:00 98 16 136/67 12/08/21 12:45 98 16 133/63 12/08/21 12:30 97 16 136/66 12/08/21 12:15 99 18 142/70 12/08/21 12:08 97 16 142/71 12/08/21 11:53 105 H 18 143/76 12/08/21 11:38 110 H 20 152/93 12/08/21 11:23 97 F L 126 H 22 163/93 12/08/21 08:30 97.7 F 111 H 16 144/80 Pulse Ox 12/08/21 14:30 98 12/08/21 13:47 96 12/08/21 13:15 97 12/08/21 13:00 94 L 12/08/21 12:45 93 L 12/08/21 12:30 92 L 12/08/21 12:15 98 12/08/21 12:08 98 12/08/21 11:53 97 12/08/21 11:38 98 12/08/21 11:23 98 12/08/21 08:30 92 L Intake and Output 12/08/21 12/08/21 12/08/21 06:59 14:59 22:59 Intake Total 1800 Output Total 150 Balance 1650 Intake: IV 1800 Output: Estimated Blood Loss 150 Other: Weight 103.6 kg
[2021-12-08 18:34] LABS: Basophils # (A) 0.1 k/uL (0-0.2); Basophils % (A) 0 %; Eosinophils % (A) 0 %; HCT 51.2 % (34.0-46.0); HGB 15.8 gm/dL (11.4-16.0); Hypochromasia Moderate; Lymphocytes # (A) 0.5 k/uL (1.0-4.8); Lymphocytes % (A) 3 %; MCH 29.1 pg (25.0-35.0); MCHC 30.8 g/dL (31.0-37.0); MCV 94.4 fL (80.0-100.0); Mean Platelet Volume 7.7; Monocytes # (A) 0.6 k/uL (0-1.0); Monocytes % (A) 3 %; Neutrophils # (A) 16.6 k/uL (1.3-7.7); Neutrophils % (A) 93 %; Platelet Count 378 k/uL (150-450); RBC 5.42 m/uL (3.80-5.40); RDW 13.5 % (11.5-15.5); WBC 17.8 k/uL (3.8-10.6)
[2021-12-08 19:43] LABS: T4, Free (Free Thyroxine) 2.07 ng/dL (0.78-2.19)
[2021-12-08] MEDS: HYDROmorphone 1 MG/ML 1 ML SYRINGE IVP PRN (20:01)
[2021-12-09] MEDS: HYDROmorphone 1 MG/ML 1 ML SYRINGE IVP PRN ×3 (03:41→20:01)
[2021-12-09] MEDS: KETOROLAC 15 MG/ML 1 ML VIAL IVP SCH ×4 (05:12→23:18)
[2021-12-09] MEDS: ENOXAPARIN 40 MG/0.4 ML SYRINGE SQ SCH (07:54)
[2021-12-09 09:37] LABS: Basophils # (A) 0.02 X 10*3/uL (0.00-0.10); Basophils % (A) 0.1 %; Eosinophils # (A) 0 X 10*3/uL (0.04-0.35); Eosinophils % (A) 0 %; HCT 44.2 % (37.2-46.3); HGB 13.6 g/dL (12.0-15.0); Immature Grans, Automated 0.6 %; Lymphocytes # (A) 1.27 X 10*3/uL (0.90-5.00); Lymphocytes % (A) 7.2 %; MCH 28.3 pg (27.0-32.0); MCHC 30.8 g/dL (32.0-37.0); MCV 92.1 fL (80.0-97.0); Mean Platelet Volume 10.4 fL (9.5-12.2); Monocytes # (A) 1.29 X 10*3/uL (0.20-1.00); Monocytes % (A) 7.3 %; NRBC Per 100 WBC 0 /100 WBCS (0.0-0.0); Neutrophils # (A) 15.04 X 10*3/uL (1.80-7.70); Neutrophils % (A) 84.8 %; Platelet Count 358 X 10*3/uL (140-440); RDW 13.7 % (11.5-14.5); WBC 17.72 X 10*3/uL (4.50-10.00)
[2021-12-09 10:42] LABS: African American GFR (CKD) 84.2 (60.0-200.0); Albumin 3.3 g/dL (3.8-4.9); Albumin/Globulin Ratio 1.27 (1.60-3.17); Anion Gap 10.8 mmol/L (10.00-18.00); BUN/Creat Ratio 14.75 Ratio (12.00-20.00); Blood Urea Nitrogen 11.8 mg/dL (9.0-27.0); Calcium 8.9 mg/dL (8.7-10.3); Carbon Dioxide 26.2 mmol/L (20.0-27.5); Globulin 2.6 g/dL (1.6-3.3); Non-African American GFR(CKD) 72.6 (60.0-200.0); Potassium 4.8 mmol/L (3.5-5.5); Total Bilirubin 0.4 mg/dL (0.30-1.20); Total Protein 5.9 g/dL (6.2-8.2)
[2021-12-09] MEDS: LACTATED RINGERS 1,000 ML IV SCH ×2 (11:11→20:04)
--- NOTE | 2021-12-09 13:23 | CDI ---
Documentation Clarification Form Date: 12/09/2021 01:10:07 PM From: Lori James CCS, CCDS Admit Date: 12/08/2021 01:50:00 PM Patient Name: Denae Hudson Visit Number: [id number] Discharge Date: ATTENTION: The Clinical Documentation Specialists (CDI) and [facility] Coding Staff appreciate your assistance in clarifying documentation. Please respond to the clarification below the line at the bottom and electronically sign. The CDI & [facility] Coding staff will review the response and follow-up if needed. Please note: Queries are made part of the Legal Health Record. If you have any questions, please contact the author of this message via ITS. Dr. Lacho Hagan: Postoperative Hypoxia is documented in the 12/08 Medical Management Consult status post Open Repair of Paraesophageal hernia with mesh. Additional clarification is requested regarding the relationship, if any, that exists between the diagnosis and the procedure. Patients Admitting Diagnosis: Paraesophageal Hernia Post-Operative Diagnosis: Same. Also documented by the Medical Management Consult: Postoperative Hypothermia, Postoperative Hypoxia. Procedure performed 12/08: Open Repair of Paraesophageal Hernia with Mesh History/Risk Factors per the 12/08 General Surgery H/P: [place], Hypertension, Hypothyroid, Lt Breast Cancer status post Lt Breast Biopsy x2 & Left Breast Lumpectomy, status post Chemotherapy & Radiation; Former smoker. Clinical Indicators: Presented 12/08 for elective Open Repair of Paraesophageal Hernia with mesh Admit postoperatively. 12/08 VS: T 97.7, P 126, BP 144/80, PO 92 RA Repeat VS: T 97, P 105, R 18, BP 143/76, PO 97-98 on 2-3L simple Machine. Repeat VS: PO 92 3Lnc Treatment 12/08: Telemetry, Deep breathing education, O2 2-3Lnc, IV Decadron, IV Zofran, IV Lactated ringers 1,000 mls @ 20 mls/hr q24H, IV Cefazolin 50 mls @ 100 mls/hr x1, Heparin 5,000 units sq x1, IV Dilaudid 0.5 mg q5M/prn, INH Ventolin 2.5 mg Consults: 12/09 Pulmonary: pending What relationship, if any, exists between the diagnosis of Hypxemia and the procedure: [ ] Hypoxemia is a complication of surgical procedure [ ] Hypoxemia is an expected outcome of the surgical procedure [ xx ] Hypoxemia is related to patients co-morbid condition(s), please specify: ____large paraesophageal hernia & not a complication of the procedure [ ] Other please specify: [ ] Unable to determine (Template Last Revised: October 2020) MTDD
--- NOTE | 2021-12-09 13:28 | P.PN ---
Subjective Progress Note Date: 12/09/21 History of Presenting Illness: Patient is a a pleasant 75-year-old female with a past medical history of hypertension, hypothyroidism, and paraesophageal hernia. Patient is currently s tatus post diagnostic laparoscopy with open repair of parasophageal hernia with mesh secondary to findings of large paraesophageal hernia with incarcerated stomach, colon, and omentum. Surgical procedure was completed on 12/08/[address] Hagan. Patient is currently admitted under Gen. surgery team and we have been consulted for medical management. Upon physical examination, patient noted to be slightly cool to touch, previous tympanic temp upon return from OR was 95.6F. Upon reevaluation at 5:09 PM axillary temp 94.0F and oral temp 94.6F. This was doublechecked with two separate thermometers to ensure accuracy. Order placed for Bare hugger at this time until normothermic temperature is obtained. patient denies feeling cold, feeling chilled, or any other complaints. She reports mild postoperative epigastric pain and states, "It feels like I have to burp but it wont come out."patient denies having any headache, lightheadedness, dizziness, chest pain, palpitations, shortness of breath, nausea, vomiting, or experiencing any numbness/tingling/weakness in her extremities. Patient denies history of DVT or PE. She is currently strict NPO until further diet is advanced by General Surgery Team. Patient was initially having postoperative hypoxia requiring oxygen supplementation of 3 L to maintain SpO2 of 94% as well as postoperative tachycardia with heart rate low 90's-100s. Patient remains tachycardic with heart rate 90s to 110s, postoperative hypoxia has improved and postoperative hypothymia has resolved. Patient reports overall control of postoperative pain. She denies experiencing any nausea or vomiting. Patient urinating without difficulties. Postoperative hemoglobin stable at 13.6. Patient does have leukocytosis with WBC count of 17.72, likely reactive. Lamar ent remains strict NPO pending surgical advancement of diet. Physical exam: Patient seen and fully evaluated at bedside this morning. She reports doing well experiencing only minimal postoperative pain to epigastric region. Patient does report episode earlier this morning in which she had a coughing fit and reports severe pain to epigastric region. Abdominal binder remains in place with no signs of bleeding or drainage noted. Patient was then educated on importance of splinting with coughing and movement. Patient denies having any headache, lightheadedness, dizziness, chest pain, palpitations, or shortness of breath at this time. Vital signs reviewed and stable. General: Nontoxic, no distress and appears stated age. Derm: Skin warm and dry, normal coloration for ethnicity. Head: Atraumatic, normocephalic and symmetric. Eyes: EOMs intact, no lid lag, and anicteric sclera Mouth: no lip lesions, mucus membranes moist Cardiovascular: regular rate and rhythm with normal S1S2, systolic murmur, positive posterior tibial pulses bilaterally, and cap refill < 2 seconds. Lungs: Respirations even, regular, and unlabored on room air. Lungs CTA bilaterally, no rhonchi, no rales, no wheezing, and no accessory muscle usage. Abdominal: soft, no guarding, no appreciable organomegaly. Abdominal binder in place w/ no signs of bleeding noted at this time. Ext: ROM intact. No gross muscle atrophy, no edema, no contractures Neuro: Speech clear, face symmetrical and CN II-XII grossly intact with no noted focal neuro deficits Psych: Alert and oriented to person, place, time, and situation. Appropriate and pleasant affect. Assessment and Plan of Care: Postoperative Hypothymia, resolved after patient placed on Bear hugger now normothermic temp Postoperative Hypoxia, improving Status post open repair of parasophageal hernia with mesh -Order placed for Bear hugger at this time an to be maintained until patient reaches normothermic temperature. -Postoperative Hemoglobin stable. -TSH 0.176 with normal free T4 of 2.07. -Maintain strict NPO until diet is advanced by General Surgery Team. -Continued IV fluid hydration -Continue close monitoring of vital signs -Continue oxygen supplementation as needed to maintain SpO2 of 92% or above, wean once patient tolerates. -Telemetry monitoring. -Encourage incentive spirometry 10-15 times hourly while awake. -DVT prophylaxis, pain management, wound care/postoperative dressing changes per primary admitting general surgery team. -DVT prophylaxis with Lovenox at this time. Hypertension -Monitor vital signs, amlodipine held at this time secondary to strict NPO status. Blood pressure is normotensive at this time no need for IV blood pressure medications. We will readdress if needed and patient may resume amlodipine once okayed by primary admitting general surgery team. Hypothyroidism -TSH 0.176 with normal free T4 of 2.07. -Synthroid held at this time held at this time secondary to strict NPO status. May resume synthroid once okayed by primary admitting general surgery team. Thank you for allowing us to participate in the care of this pleasant patient. Do not hesitate to contact us with questions. Someone can be reached from the [facility] hospitalist group all hours of the day at [phone] or via [email or web address]. Objective - Vital Signs Vital signs: Vital Signs Temp 97.5 F L 12/09/21 07:50 Pulse 113 H 12/09/21 07:50 Resp 19 12/09/21 07:50 BP 137/80 12/09/21 07:50 Pulse Ox 94 L 12/09/21 07:50 Intake & Output 12/08/21 12/09/21 12/09/21 18:59 06:59 18:59 Intake Total 1800 Output Total 150 400 Balance 1650 -400 Weight 103.6 kg Intake: IV 1800 Output: Urine 400 Estimated Blood Loss 150 Other: # Voids 1 - Labs CBC & Chem 7: 12/09/21 05:39 12/09/21 05:39 Labs: Abnormal Lab Results - Last 24 Hours (Table) 12/08/21 12/08/21 Range/Units 18:13 18:13 WBC 17.8 H (3.8-10.6) k/uL RBC 5.42 H (3.80-5.40) m/uL Hct 51.2 H (34.0-46.0) % MCHC 30.8 L (31.0-37.0) g/dL Neutrophils # 16.6 H (1.3-7.7) k/uL Lymphocytes # 0.5 L (1.0-4.8) k/uL TSH 0.176 L (0.465-4.680) mIU/L
--- NOTE | 2021-12-09 14:57 | P.PN ---
Subjective Progress Note Date: 12/09/21 CHIEF COMPLAINT: Large paraesophageal hernia HISTORY OF PRESENT ILLNESS: Large paraesophageal hernia with incarcerated stomach colon and omentum status post diagnostic laparoscopy and open repair of paraesophageal hernia with mesh. Postoperative day #1 Patient does complain of abdominal pain. She reports that is controlled. She denies any nausea vomiting. Denies any flatus or bowel movement. She does report shortness of breath. She does report some improvement in her shortness of breath after s urgery. Patient had been hypothermic with a temp of 95.6 did require bearhug her. Temperature has improved to 97.5. She has been mildly tachycardic. 2 L satting at 90% WBC 17.7 to hemoglobin 13.6 platelets 358 sodium 139 potassium 4.8 creatinine 0.8 Patient seen and examined with Dr. murphy PHYSICAL EXAM: VITAL SIGNS: Reviewed. GENERAL: Well-developed in no acute distress. HEENT: No sclera icterus. Extraocular movements grossly intact. Moist buccal mucosa. Head is atraumatic, normocephalic. ABDOMEN: Soft. Nondistended. Incision sites clean dry and intact NEUROLOGIC: Alert and oriented. Cranial nerves II through XII grossly intact. ASSESSMENT: 1. Large paraesophageal hernia with incarcerated stomach colon and omentum status post diagnostic laparoscopy and open repair of paraesophageal hernia with mesh PLAN: -Keep patient strict nothing by mouth -Continue supportive care -Continue IV fluids -Continue pain medication as needed -Consult placed for pulmonary service regarding patient's massive hiatal hernia and shortness of breath -Incentive spirometer ordered -DVT prophylaxis Lovenox Physician S[employer] note has been reviewed by physician. Signing provider agrees with the documented findings, assessment, and plan of care. Objective - Vital Signs Vital signs: Vital Signs Temp 97.3 F L 12/09/21 14:00 Pulse 116 H 12/09/21 14:00 Resp 20 12/09/21 14:00 BP 139/83 12/09/21 14:00 Pulse Ox 90 L 12/09/21 14:00 Intake & Output 12/08/21 12/09/21 12/09/21 18:59 06:59 18:59 Intake Total 1800 Output Total 150 400 Balance 1650 -400 Weight 103.6 kg Intake: IV 1800 Output: Urine 400 Estimated Blood Loss 150 Other: # Voids 1 - Labs CBC & Chem 7: 12/09/21 05:39 12/09/21 05:39 Labs: Abnormal Lab Results - Last 24 Hours (Table) 12/08/21 12/08/21 12/09/21 Range/Units 18:13 18:13 05:39 WBC 17.8 H 17.72 H (3.8-10.6) k/uL RBC 5.42 H (3.80-5.40) m/uL Hct 51.2 H (34.0-46.0) % MCHC 30.8 L 30.8 L (31.0-37.0) g/dL Immature Gran # 0.10 H (0.00-0.04) X 10*3/uL Neutrophils # 16.6 H 15.04 H (1.3-7.7) k/uL Lymphocytes # 0.5 L (1.0-4.8) k/uL Monocytes # 1.29 H (0.20-1.00) X 10*3/uL Eosinophils # 0 L (0.04-0.35) X 10*3/uL Glucose (70-110) mg/dL AST (13-35) U/L Total Protein (6.2-8.2) g/dL Albumin (3.8-4.9) g/dL Albumin/Globulin Ratio (1.60-3.17) g/dL TSH 0.176 L (0.465-4.680) mIU/L 12/09/21 Range/Units 05:39 WBC (3.8-10.6) k/uL RBC (3.80-5.40) m/uL Hct (34.0-46.0) % MCHC (31.0-37.0) g/dL Immature Gran # (0.00-0.04) X 10*3/uL Neutrophils # (1.3-7.7) k/uL Lymphocytes # (1.0-4.8) k/uL Monocytes # (0.20-1.00) X 10*3/uL Eosinophils # (0.04-0.35) X 10*3/uL Glucose 146 H (70-110) mg/dL AST 47 H (13-35) U/L Total Protein 5.9 L (6.2-8.2) g/dL Albumin 3.3 L (3.8-4.9) g/dL Albumin/Globulin Ratio 1.27 L (1.60-3.17) g/dL TSH (0.465-4.680) mIU/L
[2021-12-10] MEDS: LACTATED RINGERS 1,000 ML IV SCH ×3 (01:51→19:10)
[2021-12-10] MEDS: KETOROLAC 15 MG/ML 1 ML VIAL IVP SCH (04:52)
[2021-12-10] MEDS: ENOXAPARIN 40 MG/0.4 ML SYRINGE SQ SCH (07:30)
[2021-12-10 08:29] LABS: Basophils % (A) 0 %; Eosinophils % (A) 0 %; HCT 40.9 % (34.0-46.0); HGB 13.1 gm/dL (11.4-16.0); Hypochromasia Slight; Lymphocytes # (A) 2.4 k/uL (1.0-4.8); Lymphocytes % (A) 14 %; MCH 29.5 pg (25.0-35.0); MCHC 31.9 g/dL (31.0-37.0); MCV 92.5 fL (80.0-100.0); Mean Platelet Volume 7.7; Monocytes # (A) 0.5 k/uL (0-1.0); Monocytes % (A) 3 %; Neutrophils # (A) 14.6 k/uL (1.3-7.7); Neutrophils % (A) 83 %; Platelet Count 360 k/uL (150-450); RBC 4.42 m/uL (3.80-5.40); RDW 14.4 % (11.5-15.5); WBC 17.7 k/uL (3.8-10.6)
[2021-12-10 08:58] LABS: African American GFR (CKD) 75 (>60 ml/min/1.73 sqM); Anion Gap 5 mmol/L; Blood Urea Nitrogen 18 mg/dL (7-17); Calcium 8.8 mg/dL (8.4-10.2); Carbon Dioxide 29 mmol/L (22-30); Chloride 103 mmol/L (98-107); Glucose 112 mg/dL (74-99); Non-African American GFR(CKD) 65 (>60 ml/min/1.73 sqM); Potassium 4.5 mmol/L (3.5-5.1); Sodium 137 mmol/L (137-145)
--- NOTE | 2021-12-10 10:15 | XR ---
EXAMINATION TYPE: XR chest 1V portable DATE OF EXAM: 12/10/2021 COMPARISON: 08/05/2016 HISTORY: Abnormal x-ray TECHNIQUE: Single frontal view of the chest is obtained. FINDINGS: Bilateral lower lobe infiltrate and small effusion. Heart size normal. Mediport catheter n o longer seen. There is a left-sided pneumothorax measuring approximately 15%. Suspected mass or cons olidation left perihilar region.. IMPRESSION: 1. Interval development of a left-sided pneumothorax measuring approximately 15%. 2 bilateral lower l obe infiltrate and small effusion. Left infrahilar consolidation or mass noted.
[2021-12-10] MEDS: HYDROmorphone 1 MG/ML 1 ML SYRINGE IVP PRN ×2 (11:11→23:45)
[2021-12-10 11:41] LABS: Glucose,Whole Blood 85 mg/dL (75-99)
[2021-12-10] MEDS: PIPERACILLIN-TAZOBACTAM 3.375 GM in SODIUM CHLORIDE 0.9% 100 ML IVPB SCH ×2 (12:06→20:56)
--- NOTE | 2021-12-10 12:41 | P.CNPUL ---
History of Present Illness Consult date: 12/10/21 Requesting physician: Lacho Hagan Reason for consult: dyspnea Chief complaint: Shortness of breath History of present illness: This is a very pleasant 75-year-old female patient with a known history of hypertension, hypothyroidism, hearing disorder, left breast cancer status post lumpectomy, chemo/radiation in 2016. She was also found to have a large hiatal hernia with intra-thoracic stomach and presented here on 12/08/2021 for an elective laparoscopic surgical repair. During the procedure the hernia was found to contain the entire stomach and transverse colon and a significant porti on of the omentum. Several attempts were made to reduce the hernia however it wasn't possible laparoscopically and was converted to an open procedure. The patient was having more significant shortness of breath and we're consulted for the same. Chest x-ray today reveals a left-sided pneumothorax measuring approximately 15%. Bilateral lower lobe infiltrate and small effusion. Left infrahilar consolidation or mass was noted. White count 17.7. Hemoglobin 13.1. Sodium 137. Potassium 4.5. BUN 18. Creatinine 0.88. Glucose 112. She is seen today in consultation on the regular medical floor. She is currently sitting up in bed. Awake and alert in no acute distress. He is currently on 3 L nasal cannula with O2 saturations at 95%. Educated regarding the importance of the incentive spirometer. This is postoperative day #2. She's been initiated on Zosyn. Lovenox for DVT prophylaxis. Lactated Ringer's at 125 ML's per hour. She remains nothing by mouth. Review of Systems REVIEW OF SYSTEMS: CONSTITUTIONAL: Denies any recent significant weight loss or weight gain. EYES: Denies change in vision. EARS, NOSE, MOUTH, THROAT: Denies headaches, denies sore throat. CARDIOVASCULAR: Denies chest pain, palpitations or syncopal episodes. RESPIRATORY: Positive for shortness of breath, no cough, congestion or hemoptysis. GASTROINTESTINAL: Positive for difficulty in swallowing. GENITOURINARY: Denies hematuria, denies infections. MUSKULOSKELETAL: Denies pain, denies swelling. INTEGUMENTARY: Denies rash, denies eczema. NEUROLOGICAL: Denies recent memory loss, no recent seizure activity. PSYCHIATRIC: Denies anxiety, denies depression. HEMATOLOGIC/LYMPHATIC: Denies anemia, denies enlarged lymph nodes. 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; neoadjuvant chemo tx; taxol tx; left breast lumpectomy with SNB 01/31/17; radiation tx; hypothyroid; when eating has trouble breathing; edema feet w/ c/o pain in knees History of Any Multi-Drug Resistant Organisms: None Reported Past Surgical History: Breast Surgery, Hysterectomy Additional Past Surgical History / Comment(s): Left breast biopsy x2 07/15/16 & 08/15/16; right internal jugular mediport 08/05/16; left breast lumpectomy with SND 01/31/17; Colonoscopy; EGD 11/18/21 Past Anesthesia/Blood Transfusion Reactions: Motion Sickness, Postoperative Nausea & Vomiting (PONV) Additional Past Anesthesia/Blood Transfusion Reaction / Comment(s): no hx blood transfusion Past Psychological History: No Psychological Hx Reported Additional Psychological History / Comment(s): Pt resides with her spouse. She is independent. Smoking Status: Former smoker Past Alcohol Use History: Rare Additional Past Alcohol Use History / Comment(s): Started smoking on/off at age 42, quit age 43, smoked only few months Past Drug Use History: None Reported - Past Family History Mother Family Medical History: Cancer Additional Family Medical History / Comment(s): Melanoma Sister(s) Family Medical History: Cancer Additional Family Medical History / Comment(s): TWO SISTERS WITH BREAST CANCER, A THIRD SISTER WITH RECTAL CANCER. Father Family Medical History: Cancer Additional Family Medical History / Comment(s): Skin cancer. Medications and Allergies Home Medications Medication Instructions Recorded Confirmed Type Levothyroxine Sodium [Synthroid] 100 mcg PO QAM 08/03/16 12/08/21 History amLODIPine [Norvasc] 20 mg PO QAM 08/03/16 12/08/21 History Multivitamin [Multivitamins Adult 1 each PO QAM 05/24/18 12/08/21 History Gummies] Magnesium 250 mg PO DAILY 11/15/21 12/08/21 History Calcium Carbonate [Tums] 500 - 1,000 mg PO QID PRN 12/07/21 12/08/21 History Allergies Allergy/AdvReac Type Severity Reaction Status Date / Time codeine Allergy Nausea & Verified 12/08/21 08:23 Vomiting Physical Exam Vitals: Vital Signs Temp Pulse Resp BP Pulse Ox 12/10/21 08:00 98.0 F 120 H 18 127/70 95 12/10/21 07:38 120 H 18 12/10/21 01:15 98.1 F 117 H 16 130/69 94 L 12/09/21 20:01 97.8 F 133 H 20 144/75 90 L 12/09/21 14:00 97.3 F L 116 H 20 139/83 90 L Intake and Output 12/09/21 12/10/21 12/10/21 22:59 06:59 14:59 Intake Total 1375 Balance 1375 Intake: Intake, IV Titration 1375 Amount Lactated Ringers 1,000 ml 1375 @ 125 mls/hr IV .Q8H [facility] Rx#:[id number] Other: Voiding Method Toilet Toilet # Voids 3 3 GENERAL EXAM: Alert, active, comfortable in no apparent distress. HEAD: Normocephalic. EYES: Normal reaction of pupils, equal size. NOSE: Clear with pink turbinates. THROAT: No erythema or exudates. NECK: No masses, no JVD. CHEST: No chest wall deformity. LUNGS: Equal air entry with crackles in the bilateral bases. CVS: S1 and S2 normal with no audible murmur, regular rhythm. ABDOMEN: Surgical sites clean dry well approximated. No hepatosplenomegaly, normal bowel sounds, no guarding or rigidity. SPINE: No scoliosis or deformity SKIN: No rashes CENTRAL NERVOUS SYSTEM: No focal deficits, tone is normal in all 4 extremities. EXTREMITIES: There is no peripheral edema. No clubbing, no cyanosis. Peripheral pulses are intact. Results - Laboratory Findings CBC and BMP: 12/10/21 07:57 12/10/21 07:57 Abnormal lab findings: Abnormal Labs 12/08/21 12/08/21 12/09/21 18:13 18:13 05:39 WBC 17.8 H 17.72 H RBC 5.42 H Hct 51.2 H MCHC 30.8 L 30.8 L Immature Gran # 0.10 H Neutrophils # 16.6 H 15.04 H Lymphocytes # 0.5 L Monocytes # 1.29 H Eosinophils # 0 L BUN Glucose AST Total Protein Albumin Albumin/Globulin Ratio TSH 0.176 L 12/09/21 12/10/21 12/10/21 05:39 07:57 07:57 WBC 17.7 H RBC Hct MCHC Immature Gran # Neutrophils # 14.6 H Lymphocytes # Monocytes # Eosinophils # BUN 18 H Glucose 146 H 112 H AST 47 H Total Protein 5.9 L Albumin 3.3 L Albumin/Globulin Ratio 1.27 L TSH - Diagnostic Findings Chest x-ray: image reviewed Assessment and Plan Assessment: 1 Dysphagia and shortness of breath secondary to a large hiatal hernia. Rosalind ctive surgery 12/10/2021. Found to have a large paraesophageal hernia which contained the entire stomach and transverse colon and a significant portion of the omentum. Laparoscopic procedure transitioned to an open procedure. Postoperative day number #2 2 Left-sided pneumothorax measuring approximately 15%. Possibly related to recent surgery. Bilateral lower lobe infiltrate and small effusion. Suspected mass or consolidation in the left perihilar region 3 History of left-sided breast cancer status post lumpectomy and chemo/radiation and 2016 4 Hypothyroidism 5 Hearing disorder 6 Remote history of smoking Plan: The patient was seen and evaluated Chest x-ray and labs reviewed Obtain a CT of the chest to rule out left hilar mass Continue to titrate the FiO2 as needed Lovenox for DVT prophylaxis Currently on Zosyn Remains nothing by mouth We will continue to follow and make further recommendations based on her clinical status I have personally seen and examined the patient, performed the documentation and the assessment and plan as written. Number of minutes spent on the visit: 20.
[2021-12-10] MEDS ORDERED: RX INFO: IV CONTRAST WAS GIVEN 1 EACH MISC MISCELLANE PRN (12:42)
--- NOTE | 2021-12-10 14:26 | P.PN ---
Subjective Progress Note Date: 12/10/21 Principal diagnosis: Paraesophageal hernia Patient noted to be hypoxic today, CXR ordered and it showed 15% right sided pneumothorax. Pulm consulted. She is currently requiring 2-3L NC to keep sats above 93%. Objective - Vital Signs Vital signs: Vital Signs Temp 98.0 F 12/10/21 08:00 Pulse 120 H 12/10/21 08:00 Resp 18 12/10/21 08:00 BP 127/70 12/10/21 08:00 Pulse Ox 95 12/10/21 08:00 Intake & Output 12/09/21 12/10/21 12/10/21 18:59 06:59 18:59 Intake Total 1375 Balance 1375 Intake: Intake, IV Titration 1375 Amount Lactated Ringers 1,000 ml 1375 @ 125 mls/hr IV .Q8H [facility] Rx#:[id number] Other: Voiding Method Toilet Toilet # Voids 3 3 - Exam General: Nontoxic, no distress and appears stated age. Derm: Skin warm and dry, normal coloration for ethnicity. Head: Atraumatic, normocephalic and symmetric. Eyes: EOMs intact, no lid lag, and anicteric sclera Mouth: no lip lesions, mucus membranes moist Cardiovascular: regular rate and rhythm with normal S1S2, systolic murmur, positive posterior tibial pulses bilaterally, and cap refill < 2 seconds. Lungs: Respirations even, regular, and unlabored on room air. Lungs CTA bilaterally, no rhonchi, no rales, no wheezing, and no accessory muscle usage. Abdominal: soft, no guarding, no appreciable organomegaly. Abdominal binder in place w/ no signs of bleeding noted at this time. Ext: ROM intact. No gross muscle atrophy, no edema, no contractures Neuro: Speech clear, face symmetrical and CN II-XII grossly intact with no noted focal neuro deficits Psych: Alert and oriented to person, place, time, and situation. Appropriate and pleasant affect. - Labs CBC & Chem 7: 12/10/21 07:57 12/10/21 07:57 Labs: Abnormal Lab Results - Last 24 Hours (Table) 12/10/21 12/10/21 Range/Units 07:57 07:57 WBC 17.7 H (3.8-10.6) k/uL Neutrophils # 14.6 H (1.3-7.7) k/uL BUN 18 H (7-17) mg/dL Glucose 112 H (74-99) mg/dL Assessment and Plan Plan: Postoperative Hypothymia, resolved after patient placed on Bear hugger now normothermic temp Postoperative Hypoxia,likely sec to left chest pneumothorax, vs. HCAP Status post open repair of parasophageal hernia with mesh -Seen by pulm, CT chest ordered. Patient started on zosyn 12/10. -Postoperative Hemoglobin stable. -TSH 0.176 with normal free T4 of 2.07. -NPO by General Surgery Team. -Continued IV fluid hydration -Continue close monitoring of vital signs -Continue oxygen supplementation as needed to maintain SpO2 of 92% or above, wean once patient tolerates. -Telemetry monitoring. -Encourage incentive spirometry 10-15 times hourly while awake. -DVT prophylaxis, pain management, wound care/postoperative dressing changes per primary admitting general surgery team. -DVT prophylaxis with Lovenox at this time. Hypertension -Monitor vital signs, amlodipine held at this time secondary to strict NPO status. Blood pressure is normotensive at this time no need for IV blood pressure medications. We will readdress if needed and patient may resume amlodipine once okayed by primary admitting general surgery team. Hypothyroidism -TSH 0.176 with normal free T4 of 2.07. -Synthroid held at this time held at this time secondary to strict NPO status. May resume synthroid once okayed by primary admitting general surgery team. Thank you for allowing us to participate in the care of this pleasant patient. Do not hesitate to contact us with questions. Someone can be reached from the [facility] hospitalist group all hours of the day at [phone] or via perfect serve.
--- NOTE | 2021-12-10 14:50 | P.PN ---
Subjective Progress Note Date: 12/10/21 CHIEF COMPLAINT: Large paraesophageal hernia HISTORY OF PRESENT ILLNESS: Large paraesophageal hernia with incarcerated stomach colon and omentum status post diagnostic laparoscopy and open repair of paraesophageal hernia with mesh. Postoperative day #2 patient does complain of abdominal pain. She points to the left upper abdomen rib area. Patient denies any nausea or vomiting. She denies any flatus. She has been tachycardic. Afebrile. She's on 2 L satting at 94% white count remains elevated at 17.7 hemoglobin 13.1 platelets 60 sodium 137 potassium 4.5 creatinine 0.88 chest x- ray interval development of a left-sided pneumothorax measuring approximately 15%. 2 bilateral lower lobe infiltrate and small effusion. Left infrahilar consolidation or mass noted. Patient followed by pulmonary service they've ordered a computed tomography scan of the chest for further evaluation of infrahilar mass. Patient seen and examined with Dr. murphy PHYSICAL EXAM: VITAL SIGNS: Reviewed. GENERAL: Well-developed in no acute distress. HEENT: No sclera icterus. Extraocular movements grossly intact. Moist buccal mucosa. Head is atraumatic, normocephalic. ABDOMEN: Soft. Nondistended. Incision sites clean dry and intact NEUROLOGIC: Alert and oriented. Cranial nerves II through XII grossly intact. ASSESSMENT: 1. Large paraesophageal hernia with incarcerated stomach colon and omentum sta tus post diagnostic laparoscopy and open repair of paraesophageal hernia with mesh 2. Left-sided pneumothorax likely secondary to patient's surgery. 3. Leukocytosis PLAN: -Add IV antibiotics for elevated WBC -Keep patient strict nothing by mouth -Continue supportive care -Continue IV fluids -Continue pain medication as needed -Incentive spirometer ordered -Consult PT OT. Encourage patient to ambulate -DVT prophylaxis Lovenox Physician Autoclave Operator note has been reviewed by physician. Signing provider agrees with the documented findings, assessment, and plan of care. Objective - Vital Signs Vital signs: Vital Signs Temp 98.0 F 12/10/21 08:00 Pulse 120 H 12/10/21 08:00 Resp 18 12/10/21 08:00 BP 127/70 12/10/21 08:00 Pulse Ox 95 12/10/21 08:00 Intake & Output 12/09/21 12/10/21 12/10/21 18:59 06:59 18:59 Intake Total 1375 Balance 1375 Intake: Intake, IV Titration 1375 Amount Lactated Ringers 1,000 ml 1375 @ 125 mls/hr IV .Q8H [facility] Rx#:[id number] Other: Voiding Method Toilet Toilet # Voids 3 3 - Labs CBC & Chem 7: 12/10/21 07:57 12/10/21 07:57 Labs: Abnormal Lab Results - Last 24 Hours (Table) 12/10/21 12/10/21 Range/Units 07:57 07:57 WBC 17.7 H (3.8-10.6) k/uL Neutrophils # 14.6 H (1.3-7.7) k/uL BUN 18 H (7-17) mg/dL Glucose 112 H (74-99) mg/dL
--- NOTE | 2021-12-10 16:08 | CT ---
EXAMINATION TYPE: CT chest w con DATE OF EXAM: 12/10/2021 COMPARISON: CT chest 08/02/2018 HISTORY: Left hilar mass, pneumothorax. CT DLP: 354.5 mGycm Automated exposure control for dose reduction was used. CONTRAST: CT scan of the chest is performed with IV Contrast, patient injected with 80 mL of Isovue 300. FINDINGS: Large diaphragmatic hernia has been repaired. LUNGS: There has been interval development of approximately 50% left-sided pneumothorax. There are bi lateral pleural effusions left greater than right, consolidation is present at the lung bases posteri slime and in the left mid chest. MEDIASTINUM: There are no greater than 1 cm hilar or mediastinal lymph nodes. No pericardial effusi on is seen. There are coronary artery calcifications. AORTA: No additional significant abnormality is seen. OTHER: There is free air within the abdomen. Air-fluid level adjacent to the mediastinum posteriorly may be due to postop change. Left adrenal gland shows a somewhat nodular appearance similar to prior IMPRESSION: Large left-sided hydropneumothorax, there are bilateral pleural effusions. Pneumoperiton eum. Additional findings above. Dr. Wood informed by perfect serve
[2021-12-10] MEDS: PANTOPRAZOLE 40 MG/10 ML VIAL IVP SCH (17:58)
[2021-12-11] MEDS: PIPERACILLIN-TAZOBACTAM 3.375 GM in SODIUM CHLORIDE 0.9% 100 ML IVPB SCH ×3 (03:55→21:20)
[2021-12-11] MEDS: LACTATED RINGERS 1,000 ML IV SCH ×2 (05:55→11:18)
[2021-12-11] MEDS: ENOXAPARIN 40 MG/0.4 ML SYRINGE SQ SCH (08:25)
[2021-12-11] MEDS: PANTOPRAZOLE 40 MG/10 ML VIAL IVP SCH (08:25)
--- NOTE | 2021-12-11 10:19 | P.PN ---
Progress Note - Text Progress Note Date: 12/11/21 Patient feels slightly better today. She has some mild incisional pain. On exam her vital signs are stable. She is not short of breath. Abdomen soft. Incision is clean and intact. Status post repair of large paraesophageal hernia containing intrathoracic stomach transverse colon and pancreas and omentum. Her CAT scan is reviewed. There appears to be evidence of a pneumothorax on CAT scan O retroflexed due to the space from her paraesophageal hernia. The patient will be observed. We will start clear liquids today
--- NOTE | 2021-12-11 11:26 | P.PN ---
Subjective Progress Note Date: 12/11/21 Principal diagnosis: Paraesophageal hernia Patient is feeling okay, she thinks she is a little weak but denied having shortness of breath. No chest pain. No fevers. Objective - Vital Signs Vital signs: Vital Signs Temp 98.6 F 12/11/21 08:00 Pulse 110 H 12/11/21 08:00 Resp 16 12/11/21 08:00 BP 134/77 12/11/21 08:00 Pulse Ox 92 L 12/11/21 08:00 Intake & Output 12/10/21 12/11/21 12/11/21 18:59 06:59 18:59 Intake Total 1100 1800 Balance 1100 1800 Intake: Intake, IV Titration 1100 1500 Amount Lactated Ringers 1,000 ml 1000 1500 @ 125 mls/hr IV .Q8H [facility] Rx#:[id number] Piperacillin-Tazobactam 3 100 .375 gm In Sodium Chloride 0.9% 100 ml @ 25 mls/hr IVPB Q8H [facility] Rx#: [id number] Oral 300 Other: Voiding Method Toilet Toilet Toilet # Voids 3 5 # Bowel Movements 0 - Exam General: Nontoxic, no distress and appears stated age. Derm: Skin warm and dry, normal coloration for ethnicity. Head: Atraumatic, normocephalic and symmetric. Eyes: EOMs intact, no lid lag, and anicteric sclera Mouth: no lip lesions, mucus membranes moist Cardiovascular: regular rate and rhythm with normal S1S2, systolic murmur, positive posterior tibial pulses bilaterally, and cap refill < 2 seconds. Lungs: Respirations even, regular, and unlabored on room air. Lungs CTA bilaterally, no rhonchi, no rales, no wheezing, and no accessory muscle usage. Abdominal: soft, no guarding, no appreciable organomegaly. Abdominal binder in place w/ no signs of bleeding noted at this time. Ext: ROM intact. No gross muscle atrophy, no edema, no contractures Neuro: Speech clear, face symmetrical and CN II-XII grossly intact with no noted focal neuro deficits Psych: Alert and oriented to person, place, time, and situation. Appropriate and pleasant affect. - Labs CBC & Chem 7: 12/10/21 07:57 12/10/21 07:57 Assessment and Plan Plan: Postoperative Hypothymia, resolved after patient placed on Bear hugger now normothermic temp Postoperative Hypoxia,likely sec to left chest pneumothorax, vs. HCAP Status post open repair of parasophageal hernia with mesh -Seen by pulm, CT chest ordered which showed the same, awaiting pulm input on the managemnt of the pneumothorax. -Patient started on zosyn 12/10. -Postoperative Hemoglobin stable. -TSH 0.176 with normal free T4 of 2.07. -Started on clears by General Surgery Team. -Continued IV fluid hydration -Continue close monitoring of vital signs -Continue oxygen supplementation as needed to maintain SpO2 of 92% or above, wean once patient tolerates. -Telemetry monitoring. -Encourage incentive spirometry 10-15 times hourly while awake. -DVT prophylaxis, pain management, wound care/postoperative dressing changes per primary admitting general surgery team. -DVT prophylaxis with Lovenox at this time. Hypertension -Amlodipine has been on hold, bp ok currently. Continue to monitor. Hypothyroidism -TSH 0.176 with normal free T4 of 2.07. -Resume synthroid
[2021-12-11] MEDS: LEVOTHYROXINE 100 MCG TAB PO SCH (11:47)
[2021-12-11] MEDS: HYDROmorphone 1 MG/ML 1 ML SYRINGE IVP PRN ×3 (11:51→22:18)
--- NOTE | 2021-12-11 14:47 | P.PN ---
Subjective Progress Note Date: 12/11/21 This is a very pleasant 75-year-old female patient with a known history of hypertension, hypothyroidism, hearing disorder, left breast cancer status post lumpectomy, chemo/radiation in 2016. She was also found to have a large hiatal hernia with intra-thoracic stomach and presented here on 12/08/2021 for an elective laparoscopic surgical repair. During the procedure the hernia was found to contain the entire stomach and transverse colon and a significant portion of the omentum. Several attempts were made to reduce the hernia however it wasn't possible laparoscopically and was converted to an open procedure. The patient was having more significant shortness of breath and we're consulted for the same. Chest x-ray today reveals a left-sided pneumothorax measuring approximately 15%. Bilateral lower lobe infiltrate and small effusion. Left infrahilar consolidation or mass was noted. White count 17.7. Hemoglobin 13.1. Sodium 137. Potassium 4.5. BUN 18. Creatinine 0.88. Glucose 112. She is seen today in consultation on the regular medical floor. She is currently sitting up in bed. Awake and alert in no acute distress. He is currently on 3 L nasal cannula with O2 saturations at 95%. Educated regarding the importance of the incentive spirometer. This is postoperative day #2. She's been initiated on Zosyn. Lovenox for DVT prophylaxis. Lactated Ringer's at 125 ML's per hour. She remains nothing by mouth. The patient is seen today 12/11/2021 in follow-up on the regular medical floor. She is currently sitting up in a chair at the bedside. Awake and alert in no acute distress. She is still maintaining good O2 saturations in the 90s on 4 L/m per nasal cannula. She has lactated Ringer's running at 125 ML's per hour. She remains nothing by mouth though surgical services have been answered to clear liquids today. CAT scan from yesterday revealed a large left-sided hydropneumothorax, bilateral pleural effusions. Pneumoperitoneum. She does remain stable. No interventions were recommended at this time. She is on Lovenox for DVT prophylaxis. Protonix for GI prophylaxis. Remains on antibiotics in the form of Zosyn. Objective - Vital Signs Vital signs: Vital Signs Temp 98.6 F 12/11/21 08:00 Pulse 110 H 12/11/21 08:00 Resp 16 12/11/21 08:00 BP 134/77 12/11/21 08:00 Pulse Ox 92 L 12/11/21 08:00 Intake & Output 12/10/21 12/11/21 12/11/21 18:59 06:59 18:59 Intake Total 1100 1800 Balance 1100 1800 Intake: Intake, IV Titration 1100 1500 Amount Lactated Ringers 1,000 ml 1000 1500 @ 125 mls/hr IV .Q8H [facility] Rx#:[id number] Piperacillin-Tazobactam 3 100 .375 gm In Sodium Chloride 0.9% 100 ml @ 25 mls/hr IVPB Q8H [facility] Rx#: [id number] Oral 300 Other: Voiding Method Toilet Toilet Toilet # Voids 3 5 # Bowel Movements 0 - Exam GENERAL EXAM: Alert, very pleasant 75-year-old female, on 4 L nasal cannula, comfortable in no apparent distress. HEAD: Normocephalic. EYES: Normal reaction of pupils, equal size. NOSE: Clear with pink turbinates. THROAT: No erythema or exudates. NECK: No masses, no JVD. CHEST: No chest wall deformity. LUNGS: Equal air entry with crackles in the bilateral bases. CVS: S1 and S2 normal with no audible murmur, regular rhythm. ABDOMEN: Surgical sites clean dry well approximated. No hepatosplenomegaly, normal bowel sounds, no guarding or rigidity. SPINE: No scoliosis or deformity SKIN: No rashes CENTRAL NERVOUS SYSTEM: No focal deficits, tone is normal in all 4 extremities. EXTREMITIES: There is no peripheral edema. No clubbing, no cyanosis. Peripheral pulses are intact. - Labs CBC & Chem 7: 12/10/21 07:57 12/10/21 07:57 Assessment and Plan Assessment: 1 Dysphagia and shortness of breath secondary to a large hiatal hernia. Elective surgery 12/10/2021. Found to have a large paraesophageal hernia which contained the entire stomach and transverse colon and a significant portion of the omentum. Laparoscopic procedure transitioned to an open procedure. Postoperative day number #3. Computed tomography scan of the chest revealed pneumoperitoneum 2 Large left-sided hydropneumothorax most likely related to recent surgery. Bilateral lower lobe infiltrate and small effusion. 3 History of left-sided breast cancer status post lumpectomy and chemo/radiation and 2016 4 Hypothyroidism 5 Hearing disorder 6 Remote history of smoking Plan: The patient was seen and evaluated Computed tomography scan of the chest reviewed Large left-sided pneumothorax and pneumoperitoneum Remains stable and on 4 liters nasal cannula Continue to titrate the FiO2 as needed Currently on Zosyn Advanced to clear liquids per surgical services We will continue to follow I have personally seen and examined the patient, performed the documentation and the assessment and plan as written. Number of minutes spent on the visit: 10.
[2021-12-12] MEDS: LACTATED RINGERS 1,000 ML IV SCH ×4 (03:00→20:07)
[2021-12-12] MEDS: PIPERACILLIN-TAZOBACTAM 3.375 GM in SODIUM CHLORIDE 0.9% 100 ML IVPB SCH ×3 (05:28→20:09)
[2021-12-12] MEDS: LEVOTHYROXINE 100 MCG TAB PO SCH (05:30)
[2021-12-12] MEDS: HYDROmorphone 1 MG/ML 1 ML SYRINGE IVP PRN ×2 (05:56→06:15)
[2021-12-12 06:09] LABS: Glucose,Whole Blood 83 mg/dL (75-99)
--- NOTE | 2021-12-12 07:15 | XR ---
EXAMINATION TYPE: XR chest 1V portable DATE OF EXAM: 12/12/2021 7:05 AM COMPARISON: Chest radiograph from one day prior. TECHNIQUE: XR chest 1V portable Frontal view of the chest. CLINICAL INDICATION:Female, 75 years old with history of Follow up pneumothorax; FINDINGS: Lungs/Pleura: There is no evidence of pleural effusion. The demonstration of basilar atelectasis. Sim ilar pneumothorax. Blunting of the costophrenic angles. There is airspace opacities within the lung b ases. Pulmonary vascularity: Unremarkable. Heart/mediastinum: Cardiomediastinal silhouette is unremarkable. Musculoskeletal: No acute osseous pathology. IMPRESSION: Similar left hydropneumothorax. Similar small right pleural effusion.
[2021-12-12] MEDS: PANTOPRAZOLE 40 MG/10 ML VIAL IVP SCH (08:13)
[2021-12-12] MEDS: ENOXAPARIN 40 MG/0.4 ML SYRINGE SQ SCH (08:14)
[2021-12-12 09:08] LABS: Basophils # (A) 0.02 X 10*3/uL (0.00-0.10); Basophils % (A) 0.3 %; Eosinophils % (A) 1.4 %; HCT 35.7 % (37.2-46.3); HGB 10.5 g/dL (12.0-15.0); Immature Grans, Automated 0.8 %; Lymphocytes # (A) 1.31 X 10*3/uL (0.90-5.00); Lymphocytes % (A) 18.1 %; MCH 27.9 pg (27.0-32.0); MCHC 29.4 g/dL (32.0-37.0); MCV 94.7 fL (80.0-97.0); Mean Platelet Volume 10.1 fL (9.5-12.2); Monocytes # (A) 0.55 X 10*3/uL (0.20-1.00); Monocytes % (A) 7.6 %; NRBC Per 100 WBC 0 /100 WBCS (0.0-0.0); Neutrophils % (A) 71.8 %; Platelet Count 271 X 10*3/uL (140-440); RBC 3.77 X 10*6/uL (4.10-5.20); RDW 14.1 % (11.5-14.5); WBC 7.24 X 10*3/uL (4.50-10.00)
[2021-12-12 09:16] LABS: Magnesium 1.5 mg/dL (1.5-2.4)
[2021-12-12 09:29] LABS: African American GFR (CKD) 110.5 (60.0-200.0); Anion Gap 9.6 mmol/L (10.00-18.00); BUN/Creat Ratio 9.2 Ratio (12.00-20.00); Blood Urea Nitrogen 4.6 mg/dL (9.0-27.0); Carbon Dioxide 28.4 mmol/L (20.0-27.5); Non-African American GFR(CKD) 95.3 (60.0-200.0); Potassium 3.9 mmol/L (3.5-5.5)
--- NOTE | 2021-12-12 11:45 | P.PN ---
Progress Note - Text Progress Note Date: 12/12/21 Patient is doing better. She denies a significant abdominal pain. On exam vital signs are stable. She's had some intermittent tachycardia with movement. Abdomen is soft incision clean and intact. Status post repair of large paraesophageal hernia. This patient's presumed airspace on her chest CT is due to the space related to her hiatal hernia. She's had no significant shortness of breath. Patient will be continued to be observed. We will advance her diet slowly.
[2021-12-12] MEDS: KETOROLAC 15 MG/ML 1 ML VIAL IVP PRN ×2 (12:27→17:51)
--- NOTE | 2021-12-12 12:58 | P.PN ---
Subjective Progress Note Date: 12/12/21 Principal diagnosis: Paraesophageal hernia According to RN patient's HR goes up to the 140s when she ambulates. She is tolerating clears and started to pass gas this am. Breathing feels ok. Still with abdominal pain. Objective - Vital Signs Vital signs: Vital Signs Temp 98.0 F 12/12/21 08:00 Pulse 104 H 12/12/21 08:00 Resp 18 12/12/21 08:00 BP 122/78 12/12/21 08:00 Pulse Ox 94 L 12/12/21 08:05 Intake & Output 12/11/21 12/12/21 12/12/21 18:59 06:59 18:59 Other: Voiding Method Toilet Toilet # Voids 7 4 # Bowel Movements 0 - Exam General: Nontoxic, no distress and appears stated age. Derm: Skin warm and dry, normal coloration for ethnicity. Head: Atraumatic, normocephalic and symmetric. Eyes: EOMs intact, no lid lag, and anicteric sclera Mouth: no lip lesions, mucus membranes moist Cardiovascular: regular rate and rhythm with normal S1S2, systolic murmur, positive posterior tibial pulses bilaterally, and cap refill < 2 seconds. Lungs: Respirations even, regular, and unlabored on room air. Lungs CTA bilaterally, no rhonchi, no rales, no wheezing, and no accessory muscle usage. Abdominal: soft, no guarding, no appreciable organomegaly. Abdominal binder in place w/ no signs of bleeding noted at this time. Ext: ROM intact. No gross muscle atrophy, no edema, no contractures Neuro: Speech clear, face symmetrical and CN II-XII grossly intact with no noted focal neuro deficits Psych: Alert and oriented to person, place, time, and situation. Appropriate and pleasant affect. - Labs CBC & Chem 7: 12/12/21 04:23 12/12/21 04:23 Labs: Abnormal Lab Results - Last 24 Hours (Table) 12/12/21 12/12/21 Range/Units 04: 04: RBC 3.77 L (4.10-5.20) X 10*6/uL Hgb 10.5 L (12.0-15.0) g/dL Hct 35.7 L (37.2-46.3) % MCHC 29.4 L (32.0-37.0) g/dL Immature Gran # 0.06 H (0.00-0.04) X 10*3/uL Carbon Dioxide 28.4 H (20.0-27.5) mmol/L Anion Gap 9.60 L (10.00-18.00) mmol/L BUN 4.6 L (9.0-27.0) mg/dL Creatinine 0.5 L (0.6-1.5) mg/dL BUN/Creatinine Ratio 9.20 L (12.00-20.00) Ratio Calcium 8.0 L (8.7-10.3) mg/dL Assessment and Plan Plan: Postoperative Hypothymia, resolved after patient placed on Bear hugger now normothermic temp Postoperative Hypoxia,likely sec to left chest pneumothorax, vs. HCAP Status post open repair of parasophageal hernia with mesh -Seen by pulm, CT chest ordered which showed the same, pneumothorax d/w general surgery service, it is a result of emptying the chest cavity from the hernia and does not require intervention for now. -Patient started on zosyn 12/10. -Postoperative Hemoglobin stable. -TSH 0.176 with normal free T4 of 2.07. -On clears by General Surgery Team-now passing gas -Continued IV fluid hydration -Continue close monitoring of vital signs -Continue oxygen supplementation as needed to maintain SpO2 of 92% or above, wean once patient tolerates. -Telemetry monitoring. -Encourage incentive spirometry 10-15 times hourly while awake. -DVT prophylaxis, pain management, wound care/postoperative dressing changes per primary admitting general surgery team. -DVT prophylaxis with Lovenox at this time. Hypertension -Amlodipine has been on hold, bp ok currently. Continue to monitor. Hypothyroidism -TSH 0.176 with normal free T4 of 2.07. -Resume synthroid
--- NOTE | 2021-12-12 15:17 | P.PN ---
Subjective Progress Note Date: 12/12/21 This is a very pleasant 75-year-old female patient with a known history of hypertension, hypothyroidism, hearing disorder, left breast cancer status post lumpectomy, chemo/radiation in 2016. She was also found to have a large hiatal hernia with intra-thoracic stomach and presented here on 12/08/2021 for an elective laparoscopic surgical repair. During the procedure the hernia was found to contain the entire stomach and transverse colon and a significant portion of the omentum. Several attempts were made to reduce the hernia however it wasn't possible laparoscopically and was converted to an open procedure. The patient was having more significant shortness of breath and we're consulted for the same. Chest x-ray today reveals a left-sided pneumothorax measuring approximately 15%. Bilateral lower lobe infiltrate and small effusion. Left infrahilar consolidation or mass was noted. White count 17.7. Hemoglobin 13.1. Sodium 137. Potassium 4.5. BUN 18. Creatinine 0.88. Glucose 112. She is seen today in consultation on the regular medical floor. She is currently sitting up in bed. Awake and alert in no acute distress. He is currently on 3 L nasal cannula with O2 saturations at 95%. Educated regarding the importance of the incentive spirometer. This is postoperative day #2. She's been initiated on Zosyn. Lovenox for DVT prophylaxis. Lactated Ringer's at 125 ML's per hour. She remains nothing by mouth. The patient is seen today 12/11/2021 in follow-up on the regular medical floor. She is currently sitting up in a chair at the bedside. Awake and alert in no acute distress. She is still maintaining good O2 saturations in the 90s on 4 L/m per nasal cannula. She has lactated Ringer's running at 125 ML's per hour. She remains nothing by mouth though surgical services have been answered to clear liquids today. CAT scan from yesterday revealed a large left-sided hydropneumothorax, bilateral pleural effusions. Pneumoperitoneum. She does remain stable. No interventions were recommended at this time. She is on Lovenox for DVT prophylaxis. Protonix for GI prophylaxis. Remains on antibiotics in the form of Zosyn. The patient is seen today 12/12/2021 in follow-up on the regular medical floor. She is resting comfortably in bed. Awake and alert in no acute distress. Chest x-ray showing bibasilar atelectasis, similar left hydropneumothorax. Small ri ght pleural effusion.. She is encouraged regarding the increased use the incentive spirometer. Maintaining O2 saturations in the 90s on 4 L/m per nasal cannula. White count 7.2. Hemoglobin 10.4. Platelets 271. Sodium 138. Potassium 3.9. BUN 5. Creatinine 0.5. Glucose 74. She is continued on a lactated Ringer's at 125. Currently on a full liquid diet. Passing flatus. Remains on Zosyn. Lovenox for DVT prophylaxis. Protonix for GI prophylaxis. Continued on Reglan as needed. Objective - Vital Signs Vital signs: Vital Signs Temp 98.0 F 12/12/21 08:00 Pulse 104 H 12/12/21 08:00 Resp 18 12/12/21 08:00 BP 122/78 12/12/21 08:00 Pulse Ox 94 L 12/12/21 08:05 Intake & Output 12/11/21 12/12/21 12/12/21 18:59 06:59 18:59 Other: Voiding Method Toilet Toilet # Voids 7 4 # Bowel Movements 0 - Exam GENERAL EXAM: Alert, very pleasant 75-year-old female, on 4 L nasal cannula, comfortable in no apparent distress. HEAD: Normocephalic. EYES: Normal reaction of pupils, equal size. NOSE: Clear with pink turbinates. THROAT: No erythema or exudates. NECK: No masses, no JVD. CHEST: No chest wall deformity. LUNGS: Equal air entry with crackles in the bilateral bases. CVS: S1 and S2 normal with no audible murmur, regular rhythm. ABDOMEN: Surgical sites clean dry well approximated. No hepatosplenomegaly, normal bowel sounds, no guarding or rigidity. SPINE: No scoliosis or deformity SKIN: No rashes CENTRAL NERVOUS SYSTEM: No focal deficits, tone is normal in all 4 extremities. EXTREMITIES: There is no peripheral edema. No clubbing, no cyanosis. Peripheral pulses are intact. - Labs CBC & Chem 7: 12/12/21 04:23 12/12/21 04:23 Labs: Abnormal Lab Results - Last 24 Hours (Table) 12/12/21 12/12/21 Range/Units 04:23 04:23 RBC 3.77 L (4.10-5.20) X 10*6/uL Hgb 10.5 L (12.0-15.0) g/dL Hct 35.7 L (37.2-46.3) % MCHC 29.4 L (32.0-37.0) g/dL Immature Gran # 0.06 H (0.00-0.04) X 10*3/uL Carbon Dioxide 28.4 H (20.0-27.5) mmol/L Anion Gap 9.60 L (10.00-18.00) mmol/L BUN 4.6 L (9.0-27.0) mg/dL Creatinine 0.5 L (0.6-1.5) mg/dL BUN/Creatinine Ratio 9.20 L (12.00-20.00) Ratio Calcium 8.0 L (8.7-10.3) mg/dL Assessment and Plan Assessment: 1 Dysphagia and shortness of breath secondary to a large hiatal hernia. Elective surgery 12/10/2021. Found to have a large paraesophageal hernia which contained the entire stomach and transverse colon and a significant portion of the omentum. Laparoscopic procedure transitioned to an open procedure. Postoperative day number #4. Computed tomography scan of the chest revealed pneumoperitoneum 2 Large left-sided hydropneumothorax most likely related to recent surgery. Bilateral lower lobe infiltrate and small effusion. 3 History of left-sided breast cancer status post lumpectomy and chemo/radiation and 2016 4 Hypothyroidism 5 Hearing disorder 6 Remote history of smoking Plan: The patient was seen and evaluated Chest x-ray and labs reviewed Stable left hydropneumothorax Remains stable and on 4 liters nasal cannula Continue to titrate the FiO2 as needed Encouraged regarding the increased use the incentive spirometer Increase her activity as tolerated Currently on Zosyn Advanced to full liquids per surgical services We will continue to follow I have personally seen and examined the patient, performed the documentation and the assessment and plan as written. Number of minutes spent on the visit: 10.
[2021-12-13] MEDS: PIPERACILLIN-TAZOBACTAM 3.375 GM in SODIUM CHLORIDE 0.9% 100 ML IVPB SCH ×3 (02:58→20:55)
[2021-12-13] MEDS: LACTATED RINGERS 1,000 ML IV SCH ×3 (04:26→22:15)
[2021-12-13] MEDS ORDERED: PANTOPRAZOLE 40 MG/10 ML VIAL ONE (09:00)
[2021-12-13] MEDS ORDERED: LEVOTHYROXINE 100 MCG TAB ONE (09:00)
[2021-12-13] MEDS ORDERED: ENOXAPARIN 40 MG/0.4 ML SYRINGE SQ ONE (09:00)
--- NOTE | 2021-12-13 11:40 | P.PN ---
Subjective Progress Note Date: 12/13/21 History of Presenting Illness: Patient is a a pleasant 75-year-old female with a past medical history of hypertension, hypothyroidism, and paraesophageal hernia. Patient is currently s tatus post diagnostic laparoscopy with open repair of parasophageal hernia with mesh secondary to findings of large paraesophageal hernia with incarcerated stomach, colon, and omentum. Surgical procedure was completed on 12/08/[address] Hagan. Patient is currently admitted under Gen. surgery team and we have been consulted for medical management. Physical exam: Patient seen and fully evaluated at bedside this morning. She was resting in bed. She reports mild epigastric postsurgical pain, but states currently controlled "as long as I do not move." Patient remains on 4 L O2 via nasal ca nnula with SpO2 of 93%. Patient does have large left-sided pneumothorax in which Gen. surgery and pulmonary are following. Patient remains on IV antibiotics Zosyn 3.375 g every 8 hours. Patient currently denies having any chest pain, palpitations, nausea, vomiting, dizziness, lightheadedness, or experiencing any numbness/tingling/weakness in her extremities. She is tolerating a full liquid diet. RN reports patient has been having recurrent episodes of nonsustained V. tach throughout the weekend and persistent sinus tachycardia. Pt's magnesium was 1.5 and orders placed for replacement. Hy pomagnesemia may be the culprit of underlying nonsustained V. tach however patient does have large pneumothorax and further evaluation by cardiology would be appreciated and therefore cardiology also consulted at this time. Vital signs reviewed and stable. General: Nontoxic, no distress and appears stated age. Derm: Skin warm and dry, normal coloration for ethnicity. Head: Atraumatic, normocephalic and symmetric. Eyes: EOMs intact, no lid lag, and anicteric sclera Mouth: no lip lesions, mucus membranes moist Cardiovascular: regular rate and rhythm with normal S1S2, systolic murmur, posi tive posterior tibial pulses bilaterally, and cap refill < 2 seconds. Lungs: Respirations even, regular, and unlabored on room air. Lungs CTA bilaterally, no rhonchi, no rales, no wheezing, and no accessory muscle usage. Abdominal: soft, no guarding, no appreciable organomegaly. Abdominal binder in place w/ no signs of bleeding noted at this time. Ext: ROM intact. No gross muscle atrophy, no edema, no contractures Neuro: Speech clear, face symmetrical and CN II-XII grossly intact with no noted focal neuro deficits Psych: Alert and oriented to person, place, time, and situation. Appropriate and pleasant affect. Assessment and Plan of Care: Postoperative Hypoxia, secondary to left chest pneumothorax Large left-sided pneumothorax with bilateral pleural effusions Postoperative Hypothymia, resolved after patient placed on Bear hugger now normothermic temp Status post open repair of parasophageal hernia with mesh -Evaluated by pulmonology, CT chest ordered revealing large left-sided p neumothorax with bilateral pleural effusions and pneumoperitoneum. This was discussed with general surgery service and is believed to have resulted from emptying the chest cavity from the large hernia and does not require surgical intervention at this time. -Patient started on IV antibiotics Zosyn 12/10/21 -Full liquid diet and diet to be advanced by General Surgery Team. -Continue close monitoring of vital signs -Continue oxygen supplementation as needed to maintain SpO2 of 92% or above, wean once patient tolerates. -Telemetry monitoring. -Encourage incentive spirometry 10-15 times hourly while awake. -DVT prophylaxis, pain management, wound care/postoperative dressing changes per primary admitting general surgery team. -DVT prophylaxis with Lovenox at this time. Recurrent runs of Nonsustained V. tach Sinus tachycardia -Possibly secondary to hypomagnesemia versus other. -TSH 0.176 with normal free T4 of 2.07. -Cardiology consulted for evaluation. -Magnesium being replaced. Patient to remain on telemetry monitoring. Hypomagnesemia, replaced -We will continue to monitor with repeat a.m. labs. Hypertension -Monitor vital signs, amlodipine resume that this time. Amlodipine resumed at 10 mg daily as this is the maximum recommended dose. Hypothyroidism -TSH 0.176 with normal free T4 of 2.07. -Synthroid resumed. Thank you for allowing us to participate in the care of this pleasant patient. Do not hesitate to contact us with questions. Someone can be reached from the [facility] hospitalist group all hours of the day at [phone] or via perfect serve. I reviewed the documentation as provided by the ALBERTO above, who is the original author of this note. I agree with the documented assessment and plan, with the following changes: None Objective - Vital Signs Vital signs: Vital Signs Temp 97.7 F 04/25/22 02:56 Pulse 111 H 12/13/21 05:00 Resp 26 H 12/13/21 05:00 BP 141/91 12/13/21 05:00 Pulse Ox 93 L 12/13/21 05:00 Intake & Output 12/12/21 12/13/21 12/13/21 18:59 06:59 18:59 Other: Voiding Method Toilet # Voids 5 - Labs CBC & Chem 7: 12/13/21 03:56 12/13/21 03:56
--- NOTE | 2021-12-13 11:43 | CA ---
Transthoracic Echo Report Name: Denae Hudson Age: 75 Gender: F : 1945 Exam Date: 12/13/2021 08:55 Exam Location: [facility] Ht (in): 70 Wt (lb): 228 Ordering Physician: Jan Landeros MD Attending/Referring Phys: Clinical Staff Rn Procedure CPT: Indications: Tachycardia/Vtach Cardiac Hx: Technical Quality: Technically difficult study Contrast 1: Lumason Total Dose (mL): 4 Contrast 2: Total Dose (mL): MEASUREMENTS (Male / Female) Normal Values M-MODE Aortic Root Diameter MM 3.4 cm AV Cusp Separation MM 1.5 cm DOPPLER AV Peak Velocity 108.6 cm/s AV Peak Gradient 4.7 mmHg LVOT Peak Velocity 96.7 cm/s LVOT Peak Gradient 3.7 mmHg FINDINGS Left Ventricle Left ventricular ejection fraction is estimated at 50-55 %. Right Ventricle Right ventricle not well visualized. Right Atrium Right atrium not well visualized. Left Atrium Left atrium not well visualized. Mitral Valve No mitral regurgitation. No mitral stenosis. Aortic Valve Aortic valve not well visualized. No aortic regurgitation. No aortic stenosis. Tricuspid Valve Tricuspid valve not well visualized. Pulmonic Valve Pulmonic valve not well visualized. Pericardium No pericardial mass. Aorta Aortic root and proximal ascending aorta not well visualized. CONCLUSIONS As Above Previewed by: Dr. Alison Santana MD (Electronically Signed) Final Date: 13 December 2021 11:42
[2021-12-13] MEDS ORDERED: POTASSIUM CHLORIDE ER 20 MEQ TAB.ER PO STA (12:12)
[2021-12-13] MEDS ORDERED: METOPROLOL TARTRATE 12.5 MG TAB PO SCH (12:15)
[2021-12-13] MEDS: LEVOTHYROXINE 100 MCG TAB PO SCH (12:23)
[2021-12-13] MEDS: ENOXAPARIN 40 MG/0.4 ML SYRINGE SQ SCH (12:24)
[2021-12-13] MEDS: PANTOPRAZOLE 40 MG/10 ML VIAL IVP SCH (12:24)
--- NOTE | 2021-12-13 12:30 | XR ---
EXAMINATION TYPE: XR chest 1V portable DATE OF EXAM: 12/13/2021 COMPARISON: 12/12/2021 HISTORY: Follow-up pneumothorax TECHNIQUE: Single frontal view of the chest is obtained. FINDINGS: There is a left-sided hydropneumothorax measuring approximately 10%. Bilateral infiltrate and pleural effusion noted. Heart size stable. Osseous structures unchanged. IMPRESSION: 1. There is stable bilateral infiltrate and pleural effusion with an approximate 10% left-sided hydro pneumothorax. Pneumothorax mildly improved from prior exam.
--- NOTE | 2021-12-13 12:34 | P.PN ---
Subjective Progress Note Date: 12/13/21 Principal diagnosis: dyspnea This is a very pleasant 75-year-old female patient with a known history of hypertension, hypothyroidism, hearing disorder, left breast cancer status post lumpectomy, chemo/radiation in 2016. She was also found to have a large hiatal hernia with intra-thoracic stomach and presented here on 12/08/2021 for an elective laparoscopic surgical repair. During the procedure the hernia was found to contain the entire stomach and transverse colon and a significant portion of the omentum. Several attempts were made to reduce the hernia however it wasn't possible laparoscopically and was converted to an open procedure. The patient was having more significant shortness of breath and we're consulted for the same. Chest x-ray today reveals a left-sided pneumothorax measuring approximately 15%. Bilateral lower lobe infiltrate and small effusion. Left infrahilar consolidation or mass was noted. White count 17.7. Hemoglobin 13.1. Sodium 137. Potassium 4.5. BUN 18. Creatinine 0.88. Glucose 112. She is seen today in consultation on the regular medical floor. She is currently sitting up in bed. Awake and alert in no acute distress. He is currently on 3 L nasal cannula with O2 saturations at 95%. Educated regarding the importance of the incentive spirometer. This is postoperative day #2. She's been initiated on Zosyn. Lovenox for DVT prophylaxis. Lactated Ringer's at 125 ML's per hour. She remains nothing by mouth. The patient is seen today 12/11/2021 in follow-up on the regular medical floor. She is currently sitting up in a chair at the bedside. Awake and alert in no acute distress. She is still maintaining good O2 saturations in the 90s on 4 L/m per nasal cannula. She has lactated Ringer's running at 125 ML's per hour. She remains nothing by mouth though surgical services have been answered to clear liquids today. CAT scan from yesterday revealed a large left-sided hydropneumothorax, bilateral pleural effusions. Pneumoperitoneum. She does remain stable. No interventions were recommended at this time. She is on Lovenox for DVT prophylaxis. Protonix for GI prophylaxis. Remains on antibiotics in the form of Zosyn. The patient is seen today 12/12/2021 in follow-up on the regular medical floor. She is resting comfortably in bed. Awake and alert in no acute distress. Chest x-ray showing bibasilar atelectasis, similar left hydropneumothorax. Small right pleural effusion.. She is encouraged regarding the increased use the incentive spirometer. Maintaining O2 saturations in the 90s on 4 L/m per nasal cannula. White count 7.2. Hemoglobin 10.4. Platelets 271. Sodium 138. Potassium 3.9. BUN 5. Creatinine 0.5. Glucose 74. She is continued on a lactated Ringer's at 125. Currently on a full liquid diet. Passing flatus. Remains on Zosyn. Lovenox for DVT prophylaxis. Protonix for GI prophylaxis. Continued on Reglan as needed. On 12/13/2021 patient seen in follow-up on medical surgical floor. She is awake and alert, in no acute distress, breathing comfortably. On 4 L of oxygen pulse ox is 92-93%, been afebrile overnight, blood pressure stable. Chest x-ray from today is still pending. Patient is postop day #5 status post laparoscopic surgical repair of a large hiatal hernia with intrathoracic stomach, transverse colon and significant portion of the omentum. Patient is doing well, no specific complaint, remains on Zosyn for abiotic coverage, Ms. on IV fluids with lactated Ringer steroid to 125 ML per hour. Today's labs are still pending for today. Patient denies any significant shortness of breath. Vital signs have been stable, denies significant abdominal pain. She is on full liquid diet. Objective - Vital Signs Vital signs: Vital Signs Temp 97.7 F 12/13/21 02:56 Pulse 111 H 12/13/21 05:00 Resp 26 H 12/13/21 05:00 BP 141/91 12/13/21 05:00 Pulse Ox 93 L 12/13/21 05:00 Intake & Output 12/12/21 12/13/21 12/13/21 18:59 06:59 18:59 Other: Voiding Method Toilet # Voids 5 - Exam GENERAL EXAM: Alert, very pleasant, 75-year-old white female, on 4 L of oxygen pulse ox is 93% comfortable in no apparent distress. HEAD: Normocephalic/atraumatic. EYES: Normal reaction of pupils, equal size. Conjunctiva pink, sclera white. NOSE: Clear with pink turbinates. THROAT: No erythema or exudates. NECK: No masses, no JVD, no thyroid enlargement, no adenopathy. CHEST: No chest wall deformity. Symmetrical expansion. LUNGS: Equal air entry wit diminished breath sounds h CVS: Regular rate and rhythm, normal S1 and S2, no gallops, no murmurs, no rubs ABDOMEN: Soft, nontender. No hepatosplenomegaly, normal bowel sounds, no guarding or rigidity. Incision clean dry and intact, covered with surgical dressing, abdominal binder is in place with no signs of bleeding noted at this time EXTREMITIES: No clubbing, no edema, no cyanosis, 2+ pulses and upper and lower extremities. MUSCULOSKELETAL: Muscle strength and tone normal. SPINE: No scoliosis or deformity SKIN: No rashes CENTRAL NERVOUS SYSTEM: Alert and oriented -3. No focal deficits, tone is normal in all 4 extremities. PSYCHIATRIC: Alert and oriented -3. Appropriate affect. Intact judgment and insight. - Labs CBC & Chem 7: 12/13/21 03:56 12/13/21 03:56 Assessment and Plan Plan: Assessment: 1 Dysphagia and shortness of breath secondary to a large hiatal hernia. Elective surgery 12/10/2021. Found to have a large paraesophageal hernia which contained the entire stomach and transverse colon and a significant portion of the omentum. Laparoscopic procedure transitioned to an open procedure. Postoperative day number #4. Computed tomography scan of the chest revealed pneumoperitoneum 2 Large left-sided hydropneumothorax most likely related to recent surgery. Bilateral lower lobe infiltrate and small effusion. 3 History of left-sided breast cancer status post lumpectomy and chemo/radiation and 2016 4 Hypothyroidism 5 Hearing disorder 6 Remote history of smoking Plan: Continue encouraging deep breathing and coughing Follow-up chest x-ray today Increase activity as tolerated Encourage ambulation No acute events overnight Tolerating full liquid diet We will review the films once were able to look at the films Otherwise stable clinically Surgical recommendations Follow-up labs tomorrow I have personally seen and examined the patient, performed the documentation and the assessment and plan as written. Number of minutes spent on the visit: [10] I have personally seen and examined the patient and reviewed the documentation. I performed a joint evaluation with the nurse practitioner in this evaluation was done more than 20 minutes. I fully agree with the documentation above and the plan of care. Clinically stable. Encourage oral intake and advance diet as tolerated. Surgical follow-up. We'll monitor. Time with Patient: Less than 30
[2021-12-13 12:56] LABS: ALT 16 U/L (4-34); AST 40 U/L (14-36); African American GFR (CKD) >90 (>60 ml/min/1.73 sqM); Albumin 2.6 g/dL (3.5-5.0); Albumin/Globulin Ratio 0.8; Alkaline Phosphatase 58 U/L (38-126); Anion Gap 6 mmol/L; Blood Urea Nitrogen 6 mg/dL (7-17); Calcium 8.1 mg/dL (8.4-10.2); Carbon Dioxide 30 mmol/L (22-30); Chloride 100 mmol/L (98-107); Globulin 3.3 g/dL; Glucose 85 mg/dL (74-99); Non-African American GFR(CKD) >90 (>60 ml/min/1.73 sqM); Sodium 136 mmol/L (137-145); Total Bilirubin 1.3 mg/dL (0.2-1.3); Total Protein 5.9 g/dL (6.3-8.2)
[2021-12-13 13:01] LABS: Potassium 4.7 mmol/L (3.5-5.1)
[2021-12-13 13:17] LABS: Basophils % (A) 0 %; Eosinophils # (A) 0.1 k/uL (0-0.7); Eosinophils % (A) 2 %; HCT 41.3 % (34.0-46.0); Hypochromasia Moderate; Lymphocytes # (A) 1.3 k/uL (1.0-4.8); Lymphocytes % (A) 22 %; MCH 29.4 pg (25.0-35.0); MCHC 31.4 g/dL (31.0-37.0); MCV 93.7 fL (80.0-100.0); Mean Platelet Volume 8.9; Monocytes # (A) 0.3 k/uL (0-1.0); Monocytes % (A) 6 %; Neutrophils % (A) 68 %; Platelet Count 340 k/uL (150-450); RDW 14.4 % (11.5-15.5); WBC 5.9 k/uL (3.8-10.6)
[2021-12-13] MEDS: KETOROLAC 15 MG/ML 1 ML VIAL IVP PRN (13:22)
--- NOTE | 2021-12-13 13:26 | P.CRDCN ---
History of Present Illness History of present illness: HISTORY OF PRESENTING ILLNESS This is a pleasant 75-year-old female past medical history significant for hypertension, hypothyroidism, hearing disorder, history of left-sided breast cancer status post lumpectomy and chemo/radiation and 2016 . She does not follow with service planner. We have been asked to see in consultation for tachycardia and nonsustained ventricular tachycardia. Patient initially presented on 12/08/21 for planned elective laparoscopic hiatal hernia repair. She was diagnosed with dysphagia, was found to have a large hiatal hernia. On 12/08/21, she underwent open repair of paraesophageal hernia with mesh secondary to findings of large paraesophageal hernia with incarcerated stomach, colon, and omentum with Dr. Manjarrez. Hospital course has been complicated by hypothermia and left sided pneumothorax. Patient seen and examined at bedside, no acute distress. Pain is controlled. Yesterday, she states she had episodes of palpitations. DIAGNOSTICS Telemetry tracings indicate sinus mechanism, with HR 90s-120, episode of NSVT vs aberrancy Chest xray stable bilateral infiltrate and pleural effusion, with approx. 10% left sided hydropneumothorax. Pneumothorax improved. Laboratory reviewed, CBC unremarkable, sodium 136, potassium 4.7, BUN 6, serum creatinine 0.5, magnesium 1.5 Current home cardiac medications include amlodipine 20 mg daily Echocardiogram revealed EF [id number]%, technically difficult study, unable to accurately visualize valves well. REVIEW OF SYSTEMS At the time of my exam: CONSTITUTIONAL: Denies fever or chills. CARDIOVASCULAR: Denies chest pain, shortness of breath, orthopnea, PND or palpitations. RESPIRATORY: Denies cough. GASTROINTESTINAL: Denies abdominal pain, diarrhea, constipation, nausea or vomiting. MUSCULOSKELETAL: Denies myalgias. NEUROLOGIC: Denies numbness, tingling, headache or weakness. ENDOCRINE: Denies fatigue, weight change, polydipsia or polyurina. GENITOURINARY: Denies burning, hematuria or urgency with micturation. HEMATOLOGIC: Denies history of anemia or bleeding. PHYSICAL EXAMINATION Blood pressure 141/91, heart rate 111, afebrile, saturations 93% on 4 L nasal cannula CONSTITUTIONAL: No apparent distress. HEENT: Head is normocephalic. Pupils are equal, round. Sclerae anicteric. Mucous membranes of the mouth are moist. No JVD. No carotid bruit. CHEST EXAMINATION: Lungs are clear to auscultation. No chest wall tenderness is noted on palpation or with deep breathing. HEART EXAMINATION: Regular rate and rhythm. S1, S2 heard. No murmurs, gallops or rub. ABDOMEN: Soft, nontender. Positive bowel sounds. EXTREMITIES: 2+ peripheral pulses, no lower extremity edema and no calf tenderness. NEUROLOGIC EXAMINATION: Patient is awake, alert and oriented x3. ASSESSMENT Nonsustained ventricular tachycardia, however, cannot rule out aberrancy Sinus tachycardia Large paraesophageal hernia with incarcerated stomach colon and omentum s/p diagnostic laparoscopy and open repair of paraesophageal hernia with mesh Left-sided pneumothorax Hypomagnesemia History of hypertension History of hypothyroidism History of left-sided breast cancer status post lumpectomy, chemo and radiation in 2015 PLAN Replace magnesium Start metoprolol tartrate 12.5mg TID Continue amlodipine Continue cardiac telemetry Increase activity as tolerate Incentive spirometry Post operative management per general surgery Further recommendations based on clinical course Nurse practitioner note has been reviewed by physician. Signing provider agrees with the documented findings, assessment, and plan of care. 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; neoadjuvant chemo tx; taxol tx; left breast lumpectomy with SNB 01/31/17; radiation tx; hypothyroid; when eating has trouble breathing; edema feet w/ c/o pain in knees History of Any Multi-Drug Resistant Organisms: None Reported Past Surgical History: Breast Surgery, Hysterectomy Additional Past Surgical History / Comment(s): Left breast biopsy x2 07/15/16 & 08/15/16; right internal jugular mediport 08/05/16; left breast lumpectomy with SND 01/31/17; Colonoscopy; EGD 11/18/21 Past Anesthesia/Blood Transfusion Reactions: Motion Sickness, Postoperative Nausea & Vomiting (PONV) Additional Past Anesthesia/Blood Transfusion Reaction / Comment(s): no hx blood transfusion Past Psychological History: No Psychological Hx Reported Additional Psychological History / Comment(s): Pt resides with her spouse. She is independent. Smoking Status: Former smoker Past Alcohol Use History: Rare Additional Past Alcohol Use History / Comment(s): Started smoking on/off at age 42, quit age 43, smoked only few months Past Drug Use History: None Reported - Past Family History Mother Family Medical History: Cancer Additional Family Medical History / Comment(s): Melanoma Sister(s) Family Medical History: Cancer Additional Family Medical History / Comment(s): TWO SISTERS WITH BREAST CANCER, A THIRD SISTER WITH RECTAL CANCER. Father Family Medical History: Cancer Additional Family Medical History / Comment(s): Skin cancer. Medications and Allergies Home Medications Medication Instructions Recorded Confirmed Type Levothyroxine Sodium [Synthroid] 100 mcg PO QAM 08/03/16 12/08/21 History amLODIPine [Norvasc] 20 mg PO QAM 08/03/16 12/08/21 History Multivitamin [Multivitamins Adult 1 each PO QAM 05/24/18 12/08/21 History Gummies] Magnesium 250 mg PO DAILY 11/15/21 12/08/21 History Calcium Carbonate [Tums] 500 - 1,000 mg PO QID PRN 12/07/21 12/08/21 History Allergies Allergy/AdvReac Type Severity Reaction Status Date / Time codeine Allergy Nausea & Verified 12/08/21 08:23 Vomiting Physical Exam Vitals: Vital Signs Temp Pulse Resp BP Pulse Ox 12/13/21 05:00 111 H 26 H 141/91 93 L 12/13/21 02:56 97.7 F 97 18 129/85 98 12/12/21 19:33 97.6 F 100 18 121/83 92 L 12/12/21 16:33 93 L 12/12/21 14:00 97.5 F L 99 16 115/74 93 L Intake and Output 12/12/21 12/13/21 12/13/21 22:59 06:59 14:59 Other: # Voids 5 Results 12/12/21 04:23 12/13/21 03:56 Cardiac Enzymes 12/13/21 Range/Units 03:56 AST 40 H (14-36) U/L Comprehensive Metabolic Panel 12/13/21 Range/Units 03:56 Sodium 136 L (137-145) mmol/L Potassium 4.7 (3.5-5.1) mmol/L Chloride 100 (98-107) mmol/L Carbon Dioxide 30 (22-30) mmol/L BUN 6 L (7-17) mg/dL Creatinine 0.57 (0.52-1.04) mg/dL Glucose 85 (74-99) mg/dL Calcium 8.1 L (8.4-10.2) mg/dL AST 40 H (14-36) U/L ALT 16 (4-34) U/L Alkaline Phosphatase 58 (38-126) U/L Total Protein 5.9 L (6.3-8.2) g/dL Albumin 2.6 L (3.5-5.0) g/dL Current Medications Generic Name Dose Route Start Last Admin Trade Name Freq PRN Reason Stop Dose Admin Amlodipine Besylate 10 mg 12/13/21 11:30 Amlodipine 10 Mg Tab PO DAILY [facility] Enoxaparin Sodium 40 mg 12/09/21 09:00 12/13/21 12:24 Enoxaparin 40 Mg/0.4 Ml Syringe SQ 01/08/22 09:01 Not Given DAILY RADHA Hydromorphone HCl 1 mg 12/08/21 11:19 12/12/21 06:15 Hydromorphone 1 Mg/Ml 1 Ml Syringe IVP 01/07/22 11:20 0.5 mg Q3HR PRN Administration Moderate to Severe Pain Lactated Ringer's 1,000 mls @ 125 mls/hr 12/09/21 11:15 12/13/21 04:26 Lactated Ringers IV Not Given .Q8H RADHA Piperacillin Sod/Tazobactam 100 mls @ 25 mls/hr 12/10/21 12:00 12/13/21 02:58 Sod 3.375 gm/ Sodium Chloride IVPB 25 mls/hr Q8H RADHA Administration Protocol Magnesium Sulfate/Dextrose 1 100 mls @ 100 mls/hr 12/13/21 11:30 gm/ IV Solution IVPB 12/13/21 14:29 Q1H RADHA Ketorolac Tromethamine 15 mg 12/12/21 10:29 12/12/21 17:51 Ketorolac 15 Mg/Ml 1 Ml Vial IVP 12/15/21 10:29 15 mg Q6HR PRN Administration Pain Levothyroxine Sodium 100 mcg 12/11/21 11:45 12/13/21 12:23 Levothyroxine 100 Mcg Tab PO Not Given QAM@0630 [facility] Metoclopramide HCl 10 mg 12/08/21 11:19 12/08/21 22:36 Metoclopramide 5 Mg/Ml 2 Ml Vial IVP 01/07/22 11:20 10 mg Q6H PRN Administration Nausea And Vomiting Metoprolol Tartrate 12.5 mg 12/13/21 12:13 Metoprolol Tartrate 12.5 Mg Tab PO TID RADHA Naloxone HCl 0.2 mg 12/08/21 11:19 Naloxone 0.4 Mg/Ml 1 Ml Vial IV 01/07/22 11:20 Q2M PRN Opioid Reversal Ondansetron HCl 4 mg 12/08/21 11:19 12/10/21 14:46 Ondansetron 4 Mg/2 Ml Vial IVP 01/07/22 11:20 4 mg Q6HR PRN Administration Nausea And Vomiting Pantoprazole Sodium 40 mg 12/10/21 09:00 12/13/21 12:24 Pantoprazole 40 Mg/10 Ml Vial IVP Not Given DAILY RADHA Intake and Output 12/12/21 12/13/21 12/13/21 22:59 06:59 14:59 Other: # Voids 5 12/12/21 04:23 12/13/21 03:56
[2021-12-13] MEDS ORDERED: HYDROcodone/APAP 5-325MG 1 EACH TAB PO PRN (14:04)
--- NOTE | 2021-12-13 14:06 | P.PN ---
Subjective Progress Note Date: 12/13/21 CHIEF COMPLAINT: Large paraesophageal hernia HISTORY OF PRESENT ILLNESS: Large paraesophageal hernia with incarcerated stomach colon and omentum status post diagnostic laparoscopy and open repair of paraesophageal hernia with mesh. Postoperative day #5 patient denies any abdominal pain. She does report a flatus. Denies any bowel movement. She did complain of some shortness of breath. She has been tachycardic and having evidence of nonsustained ventricular tachycardia. She was evaluated by cardi ology. They have added metoprolol. Also her magnesium is low and being replaced. Chest x-ray stable bilateral infiltrate and pleural effusion with an approximate 10% left sided hydropneumothorax. Pneumothorax mildly improved from exam. Afebrile. Tachycardic. 4 L standing and 93% WBC is 5.9 hemoglobin is 13 clips 340 sodium 136 potassium 4.7 creatinine 0.57 magnesium 1.5 Patient seen and examined with Dr. murphy PHYSICAL EXAM: VITAL SIGNS: Reviewed. GENERAL: Well-developed in no acute distress. HEENT: No sclera icterus. Extraocular movements grossly intact. Moist buccal mucosa. Head is atraumatic, normocephalic. ABDOMEN: Soft. Nondistended. Incision sites clean dry and intact NEUROLOGIC: Alert and oriented. Cranial nerves II through XII grossly intact. ASSESSMENT: 1. Large paraesophageal hernia with incarcerated stomach colon and omentum status post diagnostic laparoscopy and open repair of paraesophageal hernia with mesh 2. Left-sided pneumothorax likely secondary to patient's surgery. 3. Leukocytosis resolved 4. Nonsustained ventricular tachycardia evaluated by cardiology 5. Hypomagnesemia PLAN: -Continue full liquid diet -Add oral pain medication -Magnesium being replaced -Continue supportive care -Continue pain medication as needed -Incentive spirometer ordered -Consult PT OT. Encourage patient to ambulate -DVT prophylaxis Lovenox Physician Flare Maker note has been reviewed by physician. Signing provider agrees with the documented findings, assessment, and plan of care. Objective - Vital Signs Vital signs: Vital Signs Temp 97.7 F 12/13/21 02:56 Pulse 111 H 12/13/21 05:00 Resp 26 H 12/13/21 05:00 BP 141/91 12/13/21 05:00 Pulse Ox 93 L 12/13/21 05:00 Intake & Output 12/12/21 12/13/21 12/13/21 18:59 06:59 18:59 Other: Voiding Method Toilet # Voids 5 - Labs CBC & Chem 7: 12/13/21 03:56 12/13/21 03:56 Labs: Abnormal Lab Results - Last 24 Hours (Table) 12/13/21 Range/Units 03:56 Sodium 136 L (137-145) mmol/L BUN 6 L (7-17) mg/dL Calcium 8.1 L (8.4-10.2) mg/dL AST 40 H (14-36) U/L Total Protein 5.9 L (6.3-8.2) g/dL Albumin 2.6 L (3.5-5.0) g/dL
[2021-12-13] MEDS ORDERED: POTASSIUM CHLORIDE ER 20 MEQ TAB.ER PO ONE (15:28)
[2021-12-13] MEDS ORDERED: METOPROLOL TARTRATE 12.5 MG TAB ONE (15:28)
[2021-12-13] MEDS: amLODIPine 10 MG TAB PO SCH (15:31)
[2021-12-13] MEDS: MAGNESIUM SULFATE-D5W PMX 1 GM in DEXTROSE/WATER 1 100ML.BAG IVPB SCH ×3 (15:32→18:15)
[2021-12-13] MEDS: METOPROLOL TARTRATE 12.5 MG TAB PO SCH ×3 (15:32→20:55)
--- NOTE | 2021-12-13 20:49 | P.PN ---
Progress Note - Text Progress Note Date: 12/13/21 Hospital course: Presented with shortness of breath. Large paraesophageal hernia with incarcerated stomach colon and omentum status post diagnostic laparoscopy and open repair of paraesophageal hernia with mesh. December 13: Patient does not have a BM. Has had some vomiting. Has abdominal pain. Did pass some flatus. Had a possible episode of nonsustained V. tach. Cardiology consulted. Full liquid diet Active Medications Hydrocodone Bitart/Acetaminophen (Hydrocodone/Apap 5-325mg 1 Each Tab) 1 each PO Q4HR PRN PRN Reason: Moderate Pain Amlodipine Besylate (Amlodipine 10 Mg Tab) 10 mg PO DAILY [facility] Last Admin: 12/13/21 15:31 Dose: 10 mg Documented by: Enoxaparin Sodium (Enoxaparin 40 Mg/0.4 Ml Syringe) 40 mg SQ DAILY [facility] Stop: 01/08/22 09:01 Last Admin: 12/13/21 12:24 Dose: Not Given Documented by: Hydromorphone HCl (Hydromorphone 1 Mg/Ml 1 Ml Syringe) 1 mg IVP Q3HR PRN PRN Reason: Moderate to Severe Pain Stop: 01/07/22 11:20 Last Admin: 12/12/21 06:15 Dose: 0.5 mg Documented by: Lactated Ringer's (Lactated Ringers) 1,000 mls @ 125 mls/hr IV .Q8H [facility] Last Admin: 12/13/21 13:23 Dose: Not Given Documented by: Piperacillin Sod/Tazobactam (Sod 3.375 gm/ Sodium Chloride) 100 mls @ 25 mls/hr IVPB Q8H [facility]; Protocol Last Admin: 12/13/21 13:19 Dose: 25 mls/hr Documented by: Ketorolac Tromethamine (Ketorolac 15 Mg/Ml 1 Ml Vial) 15 mg IVP Q6HR PRN PRN Reason: Pain Stop: 12/15/21 10:29 Last Admin: 12/13/21 13:22 Dose: 15 mg Documented by: Levothyroxine Sodium (Levothyroxine 100 Mcg Tab) 100 mcg PO QAM@0630 [facility] Last Admin: 12/13/21 12:23 Dose: Not Given Documented by: Metoclopramide HCl (Metoclopramide 5 Mg/Ml 2 Ml Vial) 10 mg IVP Q6H PRN PRN Reason: Nausea And Vomiting Stop: 01/07/22 11:20 Last Admin: 12/08/21 22:36 Dose: 10 mg Documented by: Metoprolol Tartrate (Metoprolol Tartrate 12.5 Mg Tab) 12.5 mg PO TID [facility] Last Admin: 12/13/21 18:16 Dose: Not Given Documented by: Naloxone HCl (Naloxone 0.4 Mg/Ml 1 Ml Vial) 0.2 mg IV Q2M PRN PRN Reason: Opioid Reversal Stop: 01/07/22 11:20 Ondansetron HCl (Ondansetron 4 Mg/2 Ml Vial) 4 mg IVP Q6HR PRN PRN Reason: Nausea And Vomiting Stop: 01/07/22 11:20 Last Admin: 12/10/21 14:46 Dose: 4 mg Documented by: Pantoprazole Sodium (Pantoprazole 40 Mg/10 Ml Vial) 40 mg IVP DAILY [facility] Last Admin: 12/13/21 12:24 Dose: Not Given Documented by: On examination: VITAL SIGNS: [98.2, 104, 16, 127/81, 94% on 4 L] GENERAL APPEARANCE: BMI 32.8 reclining in bed, a bit uncomfortable. HEENT: Normal external appearance of nose and ear. Oral cavity normal EYES: Pupils equal. Conjunctiva normal. NECK: JVD not raised. Mass not palpable. RESPIRATORY: Respiratory effort normal. Lungs clear to auscultation. CARDIOVASCULAR: First and second sounds normal. No edema. ABDOMEN: Soft. Tender, binder Liver and spleen not palpable. . No mass palpable . Bowel sounds present PSYCHIATRY: Alert and oriented x3. Mood and affect normal INVESTIGATIONS, reviewed in the clinical context: White count 5.9 hemoglobin 13 platelets 340 sodium 136 potassium 4.7 creatinine 0.57 Chest x-ray: 10% left-sided hydropneumothorax. Bilateral infiltrates. 2-D echocardiogram: Here 50-55% CT chest: Large left-sided hydropneumothorax. Bilateral pleural effusions. Pn eumoperitoneum. Assessment plan: -Large paraesophageal hernia with incarcerated stomach colon and omentum status post diagnostic laparoscopy and open repair of paraesophageal hernia with mesh. December [address] Hagan. Currently on liquid diet. -Essential hypertension Norvasc 10 mg a day -Hypothyroid Synthroid 100 g a day -Hard of hearing -Hypoalbuminemia, acute phase reactant -Left-sided hydropneumothorax, secondary to abdominal surgery -Bilateral pleural effusions secondary to IV fluids Follow closely -Possible non-sustained V. tach: New diagnosis Cardiology consulted. Lopressor 12.5 mg by mouth 3 times a day Started on Lopressor for possible nonsustained V. tach. Liquid diet. Incentive spirometry. Continue other medications. Out of bed as tolerated.
[2021-12-14] MEDS: LACTATED RINGERS 1,000 ML IV SCH ×3 (02:25→21:00)
[2021-12-14] MEDS: PIPERACILLIN-TAZOBACTAM 3.375 GM in SODIUM CHLORIDE 0.9% 100 ML IVPB SCH ×3 (03:19→21:07)
[2021-12-14] MEDS: KETOROLAC 15 MG/ML 1 ML VIAL IVP PRN (03:46)
[2021-12-14] MEDS: LEVOTHYROXINE 100 MCG TAB PO SCH (03:47)
[2021-12-14] MEDS: METOPROLOL TARTRATE 12.5 MG TAB PO SCH ×3 (07:19→21:06)
[2021-12-14] MEDS: amLODIPine 10 MG TAB PO SCH (07:19)
[2021-12-14] MEDS: ENOXAPARIN 40 MG/0.4 ML SYRINGE SQ SCH (07:20)
[2021-12-14] MEDS: PANTOPRAZOLE 40 MG/10 ML VIAL IVP SCH (07:20)
--- NOTE | 2021-12-14 08:51 | CDI ---
Documentation Clarification Form Date: 12/14/2021 08:37:05 AM From: Lori JamesLEO romo, CCDS Admit Date: 12/08/2021 01:50:00 PM Patient Name: Denae Hudson Visit Number: [id number] Discharge Date: ATTENTION: The Clinical Documentation Specialists (CDI) and [facility] Coding Staff appreciate your assistance in clarifying documentation. Please respond to the clarification below the line at the bottom and electronically sign. The CDI & [facility] Coding staff will review the response and follow-up if needed. Please note: Queries are made part of the Legal Health Record. If you have any questions, please contact the author of this message via ITS. Dr. Lacho Hagan: Left Sided Pneumothorax likely secondary to patient's surgery, is documented in the 12/10 General Surgeon's Progress note. Additional clarification is requested regarding the relationship, if any, that exists between the diagnosis of Pneumothorax and the procedure. Patients Admitting Diagnosis per the 12/08 Procedure Note: Large Paraesophageal Hernia with Incarcerated Stomach, Colon and Omentum. Post-Operative Diagnosis: Same Procedure performed: Diagnostic laparoscopy. Open Repair of Paraesophageal Hernia with Mesh. History/Risk Factors per the 12/08 H/P: Hypothyroidism, Hypertension, Left Breast Cancer status post Lumpectomy & Radiation, Former smoker. Clinical Indicators: Presented 12/08 for Elective Surgery as above. 12/10 VS: T 97.4, P 110, R 18, BP 116/70, PO 91 3-4Lnc, ,BMI: 32.8 12/10 LAB: WBC 17.8, RBC 5.42, Hct 51.2, Neutrophils 16.6, Lymphocytes 0.5. Glucose 146, AST 47, Total Protein 5.9, albumin 3.3, Albumin/Globulin Ratio 1.27; TSH 0.176 12/10 CXR: Interval development of a left-sided pneumothorax measuring approximately 15%.2 bilateral lower lobe infiltrate and small effusion. Left infrahilar consolidation or mass noted. 12/10 CT Chest: Large left-sided hydropneumothorax, there are bilateral pleural effusions. Pneumoperitoneum. Treatment 12/10: CXR & Ct chest, O2 3-4Lnc, IV Zosyn 100 mls @ 25 mls/hr q8H, IV Protonix 40 mg Daily. What relationship, if any, exists between the diagnosis of Left Side Pneumothorax and the procedure: [ ] Pneumothorax is a complication of surgical procedure [ ] Pneumothorax is an expected outcome of the surgical procedure [ xxx] Pneumothorax is related to patients co-morbid condition(s) of, please specify: ___due to large paraesophageal hernia & not a complication of the procedure [ ] Other please specify" [ ] Unable to determine (Template Last Revised: October 2020) MTDD
[2021-12-14 09:10] LABS: HCT 37.4 % (37.2-46.3); HGB 11.5 g/dL (12.0-15.0); MCH 27.9 pg (27.0-32.0); MCHC 30.7 g/dL (32.0-37.0); MCV 90.8 fL (80.0-97.0); NRBC Per 100 WBC 0 /100 WBCS (0.0-0.0); Platelet Count 294 X 10*3/uL (140-440); RBC 4.12 X 10*6/uL (4.10-5.20); RDW 14.2 % (11.5-14.5); WBC 6.21 X 10*3/uL (4.50-10.00)
--- NOTE | 2021-12-14 09:27 | P.PN ---
Subjective This is a pleasant 75-year-old female past medical history significant for hypertension, hypothyroidism, hearing disorder, history of left-sided breast cancer status post lumpectomy and chemo/radiation and 2016 . She does not follow with network associate. We have been asked to see in consultation for tachycardia and nonsustained ventricular tachycardia. Patient initially presented on 12/08/21 for planned elective laparoscopic hiatal hernia repair. She was diagnosed with dysphagia, was found to have a large hiatal hernia. On 12/08/21, she underwent open repair of paraesophageal hernia with mesh secondary to findings of large paraesophageal hernia with incarcerated stomach, colon, and omentum with Dr. Manjarrez. Hospital course has been complicated by hypothermia and left sided pneumothorax. DIAGNOSTICS Echocardiogram revealed EF 5055%, technically difficult study, unable to accurately visualize valves well. 12/14/21 Patient seen and examined at bedside, no acute distress. Pain is controlled. She denies any chest pain, shortness of breath, palpitations. She is currently maintained on amlodipine 10 mg daily, metoprolol titrate 12.5 mg 3 times a day. Telemetry reviewed patient sinus mechanism with heart rates in 80s90s, no further evidence of NSVT. Labs, Mag 2.0, BMP pending PHYSICAL EXAMINATION Vitals reviewed CONSTITUTIONAL: No apparent distress. HEENT: Neck Supple. No JVD. CHEST EXAMINATION: Lungs are clear to auscultation. No chest wall tenderness is noted on palpation or with deep breathing. HEART EXAMINATION: Regular rate and rhythm. S1, S2 heard. No murmurs, gallops or rub. ABDOMEN: Soft, nontender. Positive bowel sounds. EXTREMITIES: 2+ peripheral pulses, no lower extremity edema and no calf tenderness. NEUROLOGIC EXAMINATION: Patient is awake, alert and oriented x3. ASSESSMENT Nonsustained ventricular tachycardia, however, cannot rule out aberrancy Sinus tachycardia Large paraesophageal hernia with incarcerated stomach colon and omentum s/p diagnostic laparoscopy and open repair of paraesophageal hernia with mesh Left-sided pneumothorax Hypomagnesemia History of hypertension History of hypothyroidism History of left-sided breast cancer status post lumpectomy, chemo and radiation in 2016 PLAN Continue metoprolol tartrate 12.5mg TID Continue amlodipine Increase activity as tolerate Incentive spirometry Post operative management per general surgery No further changes from a cardiology perspective. Discharge per surgery and other consultants. Nurse practitioner note has been reviewed by physician. Signing provider agrees with the documented findings, assessment, and plan of care. Objective - Vital Signs Vital signs: Vital Signs Temp 97.7 F 12/14/21 07:18 Pulse 95 12/14/21 07:18 Resp 18 12/14/21 07:18 BP 142/87 12/14/21 07:18 Pulse Ox 94 L 12/14/21 07:18 Intake & Output 12/13/21 12/14/21 12/14/21 18:59 06:59 18:59 Intake Total 1000 Balance 1000 Intake: Intake, IV Titration 1000 Amount Lactated Ringers 1,000 ml 900 @ 125 mls/hr IV .Q8H [facility] Rx#:[id number] Piperacillin-Tazobactam 3 100 .375 gm In Sodium Chloride 0.9% 100 ml @ 25 mls/hr IVPB Q8H [facility] Rx#: [id number] Other: # Voids 4 3 - Labs CBC & Chem 7: 12/14/21 05:02 12/13/21 03:56 Labs: Abnormal Lab Results - Last 24 Hours (Table) 12/13/21 12/14/21 Range/Units 03:56 05:02 Hgb 11.5 L (12.0-15.0) g/dL MCHC 30.7 L (32.0-37.0) g/dL Sodium 136 L (137-145) mmol/L BUN 6 L (7-17) mg/dL Calcium 8.1 L (8.4-10.2) mg/dL AST 40 H (14-36) U/L Total Protein 5.9 L (6.3-8.2) g/dL Albumin 2.6 L (3.5-5.0) g/dL
[2021-12-14 09:30] LABS: African American GFR (CKD) 110.5 (60.0-200.0); Albumin 2.8 g/dL (3.8-4.9); Albumin/Globulin Ratio 1.27 (1.60-3.17); Anion Gap 10.6 mmol/L (10.00-18.00); BUN/Creat Ratio 9.8 Ratio (12.00-20.00); Blood Urea Nitrogen 4.9 mg/dL (9.0-27.0); Calcium 8.1 mg/dL (8.7-10.3); Carbon Dioxide 26.4 mmol/L (20.0-27.5); Globulin 2.2 g/dL (1.6-3.3); Non-African American GFR(CKD) 95.3 (60.0-200.0); Potassium 3.5 mmol/L (3.5-5.5); Total Bilirubin 0.7 mg/dL (0.30-1.20)
[2021-12-14] MEDS ORDERED: POTASSIUM CHLORIDE ER 20 MEQ TAB.ER PO STA (09:51)
--- NOTE | 2021-12-14 13:35 | P.PN ---
Subjective Progress Note Date: 12/14/21 Principal diagnosis: dyspnea This is a very pleasant 75-year-old female patient with a known history of hypertension, hypothyroidism, hearing disorder, left breast cancer status post lumpectomy, chemo/radiation in 2016. She was also found to have a large hiatal hernia with intra-thoracic stomach and presented here on 12/08/2021 for an elective laparoscopic surgical repair. During the procedure the hernia was found to contain the entire stomach and transverse colon and a significant portion of the omentum. Several attempts were made to reduce the hernia however it wasn't possible laparoscopically and was converted to an open procedure. The patient was having more significant shortness of breath and we're consulted for the same. Chest x-ray today reveals a left-sided pneumothorax measuring approximately 15%. Bilateral lower lobe infiltrate and small effusion. Left infrahilar consolidation or mass was noted. White count 17.7. Hemoglobin 13.1. Sodium 137. Potassium 4.5. BUN 18. Creatinine 0.88. Glucose 112. She is seen today in consultation on the regular medical floor. She is currently sitting up in bed. Awake and alert in no acute distress. He is currently on 3 L nasal cannula with O2 saturations at 95%. Educated regarding the importance of the incentive spirometer. This is postoperative day #2. She's been initiated on Zosyn. Lovenox for DVT prophylaxis. Lactated Ringer's at 125 ML's per hour. She remains nothing by mouth. The patient is seen today 12/11/2021 in follow-up on the regular medical floor. She is currently sitting up in a chair at the bedside. Awake and alert in no acute distress. She is still maintaining good O2 saturations in the 90s on 4 L/m per nasal cannula. She has lactated Ringer's running at 125 ML's per hour. She remains nothing by mouth though surgical services have been answered to clear liquids today. CAT scan from yesterday revealed a large left-sided hydropneumothorax, bilateral pleural effusions. Pneumoperitoneum. She does remain stable. No interventions were recommended at this time. She is on Lovenox for DVT prophylaxis. Protonix for GI prophylaxis. Remains on antibiotics in the form of Zosyn. The patient is seen today 12/12/2021 in follow-up on the regular medical floor. She is resting comfortably in bed. Awake and alert in no acute distress. Chest x-ray showing bibasilar atelectasis, similar left hydropneumothorax. Small right pleural effusion.. She is encouraged regarding the increased use the incentive spirometer. Maintaining O2 saturations in the 90s on 4 L/m per nasal cannula. White count 7.2. Hemoglobin 10.4. Platelets 271. Sodium 138. Potassium 3.9. BUN 5. Creatinine 0.5. Glucose 74. She is continued on a lactated Ringer's at 125. Currently on a full liquid diet. Passing flatus. Remains on Zosyn. Lovenox for DVT prophylaxis. Protonix for GI prophylaxis. Continued on Reglan as needed. On 12/13/2021 patient seen in follow-up on medical surgical floor. She is awake and alert, in no acute distress, breathing comfortably. On 4 L of oxygen pulse ox is 92-93%, been afebrile overnight, blood pressure stable. Chest x-ray from today is still pending. Patient is postop day #5 status post laparoscopic surgical repair of a large hiatal hernia with intrathoracic stomach, transverse colon and significant portion of the omentum. Patient is doing well, no specific complaint, remains on Zosyn for abiotic coverage, Ms. on IV fluids with lactated Ringer steroid to 125 ML per hour. Today's labs are still pending for today. Patient denies any significant shortness of breath. Vital signs have been stable, denies significant abdominal pain. She is on full liquid diet. On 12/14/2021 patient seen in follow-up on medical surgical floor, she denies any worsening dyspnea, she is on 2 L of oxygen pulse ox is 96%, she has been working on her incentive spirometer, today she is having some frequent bouts of diarrhea. No abdominal pain, yesterday's chest x-ray showing stable bilateral infiltrates and pleural effusion with approximately 10% left-sided hydropneumothorax which is improved from prior exam. Today's labs have been reviewed, white blood cell count is 6.21, hemoglobin is 11.5, electrolytes are within normal limits, BUN is 4.9, creatinine 0.5. Patient has been ambulating to the bathroom, tolerating activity well. She remains on Zosyn, she's had no fever or chills Objective - Vital Signs Vital signs: Vital Signs Temp 97.7 F 12/14/21 07:18 Pulse 95 12/14/21 07:18 Resp 18 12/14/21 08:00 BP 142/87 12/14/21 07:18 Pulse Ox 91 L 12/14/21 09:58 Intake & Output 12/13/21 12/14/21 12/14/21 18:59 06:59 18:59 Intake Total 1000 Balance 1000 Intake: Intake, IV Titration 1000 Amount Lactated Ringers 1,000 ml 900 @ 125 mls/hr IV .Q8H [facility] Rx#:[id number] Piperacillin-Tazobactam 3 100 .375 gm In Sodium Chloride 0.9% 100 ml @ 25 mls/hr IVPB Q8H [facility] Rx#: [id number] Other: Voiding Method Toilet # Voids 4 3 - Exam GENERAL EXAM: Alert, very pleasant, 75-year-old white female, on 4 L of oxygen pulse ox is 93% comfortable in no apparent distress. HEAD: Normocephalic/atraumatic. EYES: Normal reaction of pupils, equal size. Conjunctiva pink, sclera white. NOSE: Clear with pink turbinates. THROAT: No erythema or exudates. NECK: No masses, no JVD, no thyroid enlargement, no adenopathy. CHEST: No chest wall deformity. Symmetrical expansion. LUNGS: Equal air entry wit diminished breath sounds h CVS: Regular rate and rhythm, normal S1 and S2, no gallops, no murmurs, no rubs ABDOMEN: Soft, nontender. No hepatosplenomegaly, normal bowel sounds, no guarding or rigidity. Incision clean dry and intact, covered with surgical dressing, abdominal binder is in place with no signs of bleeding noted at this time EXTREMITIES: No clubbing, no edema, no cyanosis, 2+ pulses and upper and lower extremities. MUSCULOSKELETAL: Muscle strength and tone normal. SPINE: No scoliosis or deformity SKIN: No rashes CENTRAL NERVOUS SYSTEM: Alert and oriented -3. No focal deficits, tone is normal in all 4 extremities. PSYCHIATRIC: Alert and oriented -3. Appropriate affect. Intact judgment and insight. - Labs CBC & Chem 7: 12/14/21 05:02 12/14/21 05:02 Labs: Abnormal Lab Results - Last 24 Hours (Table) 12/14/21 12/14/21 Range/Units 05:02 05:02 Hgb 11.5 L (12.0-15.0) g/dL MCHC 30.7 L (32.0-37.0) g/dL BUN 4.9 L (9.0-27.0) mg/dL Creatinine 0.5 L (0.6-1.5) mg/dL BUN/Creatinine Ratio 9.80 L (12.00-20.00) Ratio Calcium 8.1 L (8.7-10.3) mg/dL Total Protein 5.0 L (6.2-8.2) g/dL Albumin 2.8 L (3.8-4.9) g/dL Albumin/Globulin Ratio 1.27 L (1.60-3.17) g/dL Assessment and Plan Plan: Assessment: 1 Dysphagia and shortness of breath secondary to a large hiatal hernia. Elective surgery 12/10/2021. Found to have a large paraesophageal hernia which contained the entire stomach and transverse colon and a significant portion of the omentum. Laparoscopic procedure transitioned to an open procedure. Postoperative day number #4. Computed tomography scan of the chest revealed pneumoperitoneum 2 Large left-sided hydropneumothorax most likely related to recent surgery, improved on most recent chest x-ray from 12/13/2021, and bilateral small pleural effusions 3 History of left-sided breast cancer status post lumpectomy and chemo/radiation and 2016 4 Hypothyroidism 5 Hearing disorder 6 Remote history of smoking Plan: Follow-up chest x-ray from yesterday showing improving small left-sided hydropneumothorax on the left, and small bilateral pleural effusions Patient denies any worsening dyspnea, continue weaning FiO2 and encouraging deep breathing and coughing Vital signs are stable otherwise Today's labs have been noted Increase activity as tolerated Cut back IV fluids to 50 ML per hour CXR in am I have personally seen and examined the patient, performed the documentation and the assessment and plan as written. Number of minutes spent on the visit: [10] I have personally seen and examined the patient and reviewed the documentation. I performed a joint evaluation with the nurse practitioner in this evaluation was done more than 20 minutes. I fully agree with the documentation above and the plan of care. The patient is doing well. No specific complaints. The patient has no major respiratory difficulties. Vitals are stable. We'll cut down the IV fluids to 50 mL an hour. Repeat chest x-ray in the morning. We'll continue to follow. Time with Patient: Less than 30
--- NOTE | 2021-12-14 14:19 | P.PN ---
Subjective Progress Note Date: 12/14/21 CHIEF COMPLAINT: Large paraesophageal hernia HISTORY OF PRESENT ILLNESS: Large paraesophageal hernia with incarcerated stomach colon and omentum status post diagnostic laparoscopy and open repair of paraesophageal hernia with mesh. Postoperative day #6 patient denies any abdominal pain. She denies any nausea or vomiting. She is tolerating full liquid diet. She did have a bowel movement and flatus. Afebrile she is on 4 L satting at 91% WBC is 6.21 he will 0.5 sodium 137 potassium is 3.5 creatinine 0.5 magnesium 2.0 patient's heart rate is improved at 97. Cardiology had seen patient yesterday and added metoprolol. Cardiology is cleared patient for discharge. Patient seen and examined with Dr. murphy PHYSICAL EXAM: VITAL SIGNS: Reviewed. GENERAL: Well-developed in no acute distress. HEENT: No sclera icterus. Extraocular movements grossly intact. Moist buccal mucosa. Head is atraumatic, normocephalic. ABDOMEN: Soft. Nondistended. Incision sites clean dry and intact NEUROLOGIC: Alert and oriented. Cranial nerves II through XII grossly intact. ASSESSMENT: 1. Large paraesophageal hernia with incarcerated stomach colon and omentum status post diagnostic laparoscopy and open repair of paraesophageal hernia with mesh 2. Left-sided pneumothorax likely secondary to patient's surgery. 3. Leukocytosis resolved 4. Nonsustained ventricular tachycardia evaluated by cardiology 5. Hypomagnesemia improved PLAN: -Continue full liquid diet -Continue pain medication as needed -Continue supportive care -Continue pain medication as needed -Incentive spirometer ordered -Encourage patient to ambulate -Possible discharge tomorrow if cleared by all consulting physicians -DVT prophylaxis Lovenox Physician Entry Level Manufacturing Engineer note has been reviewed by physician. Signing provider agrees with the documented findings, assessment, and plan of care. Objective - Vital Signs Vital signs: Vital Signs Temp 97.7 F 12/14/21 07:18 Pulse 95 12/14/21 07:18 Resp 18 12/14/21 08:00 BP 142/87 12/14/21 07:18 Pulse Ox 91 L 12/14/21 09:58 Intake & Output 12/13/21 12/14/21 12/14/21 18:59 06:59 18:59 Intake Total 1000 Balance 1000 Intake: Intake, IV Titration 1000 Amount Lactated Ringers 1,000 ml 900 @ 125 mls/hr IV .Q8H [facility] Rx#:[id number] Piperacillin-Tazobactam 3 100 .375 gm In Sodium Chloride 0.9% 100 ml @ 25 mls/hr IVPB Q8H [facility] Rx#: [id number] Other: Voiding Method Toilet # Voids 4 3 - Labs CBC & Chem 7: 12/14/21 05:02 12/14/21 05:02 Labs: Abnormal Lab Results - Last 24 Hours (Table) 12/14/21 12/14/21 Range/Units 05:02 05:02 Hgb 11.5 L (12.0-15.0) g/dL MCHC 30.7 L (32.0-37.0) g/dL BUN 4.9 L (9.0-27.0) mg/dL Creatinine 0.5 L (0.6-1.5) mg/dL BUN/Creatinine Ratio 9.80 L (12.00-20.00) Ratio Calcium 8.1 L (8.7-10.3) mg/dL Total Protein 5.0 L (6.2-8.2) g/dL Albumin 2.8 L (3.8-4.9) g/dL Albumin/Globulin Ratio 1.27 L (1.60-3.17) g/dL
--- NOTE | 2021-12-14 17:45 | P.PN ---
Progress Note - Text Progress Note Date: 12/14/21 Hospital course: Presented with shortness of breath. Large paraesophageal hernia with incarcerated stomach colon and omentum status post diagnostic laparoscopy and open repair of paraesophageal hernia with mesh. December 13: Patient does not have a BM. Has had some vomiting. Has abdominal pain. Did pass some flatus. Had a possible episode of nonsustained V. tach. Cardiology consulted. Full liquid diet December 14: Full liquid diet. Incentive spirometry. Abdominal pain a bit better. On beta roldan. Increase activity. Active Medications Hydrocodone Bitart/Acetaminophen (Hydrocodone/Apap 5-325mg 1 Each Tab) 1 each PO Q4HR PRN PRN Reason: Moderate Pain Amlodipine Besylate (Amlodipine 10 Mg Tab) 10 mg PO DAILY [facility] Last Admin: 12/14/21 07:19 Dose: 10 mg Documented by: Enoxaparin Sodium (Enoxaparin 40 Mg/0.4 Ml Syringe) 40 mg SQ DAILY [facility] Stop: 01/08/22 09:01 Last Admin: 12/14/21 07:20 Dose: 40 mg Documented by: Hydromorphone HCl (Hydromorphone 1 Mg/Ml 1 Ml Syringe) 1 mg IVP Q3HR PRN PRN Reason: Moderate to Severe Pain Stop: 01/07/22 11:20 Last Admin: 12/12/21 06:15 Dose: 0.5 mg Documented by: Lactated Ringer's (Lactated Ringers) 1,000 mls @ 50 mls/hr IV .Q20H [facility] Last Admin: 12/14/21 11:14 Dose: 125 mls/hr Documented by: Piperacillin Sod/Tazobactam (Sod 3.375 gm/ Sodium Chloride) 100 mls @ 25 mls/hr IVPB Q8H [facility]; Protocol Last Admin: 12/14/21 11:14 Dose: 25 mls/hr Documented by: Ketorolac Tromethamine (Ketorolac 15 Mg/Ml 1 Ml Vial) 15 mg IVP Q6HR PRN PRN Reason: Pain Stop: 12/15/21 10:29 Last Admin: 12/14/21 03:46 Dose: 15 mg Documented by: Levothyroxine Sodium (Levothyroxine 100 Mcg Tab) 100 mcg PO QAM@0630 [facility] Last Admin: 12/14/21 03:47 Dose: 100 mcg Documented by: Metoclopramide HCl (Metoclopramide 5 Mg/Ml 2 Ml Vial) 10 mg IVP Q6H PRN PRN Reason: Nausea And Vomiting Stop: 01/07/22 11:20 Last Admin: 12/08/21 22:36 Dose: 10 mg Documented by: Metoprolol Tartrate (Metoprolol Tartrate 12.5 Mg Tab) 12.5 mg PO TID [facility] Last Admin: 12/14/21 15:50 Dose: 12.5 mg Documented by: Naloxone HCl (Naloxone 0.4 Mg/Ml 1 Ml Vial) 0.2 mg IV Q2M PRN PRN Reason: Opioid Reversal Stop: 01/07/22 11:20 Ondansetron HCl (Ondansetron 4 Mg/2 Ml Vial) 4 mg IVP Q6HR PRN PRN Reason: Nausea And Vomiting Stop: 01/07/22 11:20 Last Admin: 12/10/21 14:46 Dose: 4 mg Documented by: Pantoprazole Sodium (Pantoprazole 40 Mg/10 Ml Vial) 40 mg IVP DAILY [facility] Last Admin: 12/14/21 07:20 Dose: 40 mg Documented by: On examination: VITAL SIGNS: 97.6, 95, 21, 133/81, 96% on 2 L GENERAL APPEARANCE: reclining in bed, HEENT: Normal external appearance of nose and ear. Oral cavity normal EYES: Pupils equal. Conjunctiva normal. NECK: JVD not raised. Mass not palpable. RESPIRATORY: Respiratory effort normal. Lungs clear to auscultation. CARDIOVASCULAR: First and second sounds normal. No edema. ABDOMEN: Soft. Tender, binder Liver and spleen not palpable. . No mass palpable. Bowel sounds present PSYCHIATRY: Alert and oriented x3. Mood and affect normal INVESTIGATIONS, reviewed in the clinical context: December 14: White count 6.2 hemoglobin 11.5 crit is 24 potassium 3.5 creatinine 0.5 White count 5.9 hemoglobin 13 platelets 340 sodium 136 potassium 4.7 creatinine 0.57 Chest x-ray: 10% left-sided hydropneumothorax. Bilateral infiltrates. 2-D echocardiogram: EF 50-55% CT chest: Large left-sided hydropneumothorax. Bilateral pleural effusions. Pneumoperitoneum. Assessment plan: -Large paraesophageal hernia with incarcerated stomach colon and omentum status post diagnostic laparoscopy and open repair of paraesophageal hernia with mesh. December [address] Hagan. Currently on liquid diet. -Essential hypertension Norvasc 10 mg a day -Hypothyroid Synthroid 100 g a day -Hard of hearing -Hypoalbuminemia, acute phase reactant -Left-sided hydropneumothorax, secondary to abdominal surgery -Bilateral pleural effusions secondary to IV fluids Follow closely -Possible non-sustained V. tach: Seen by Cardiology Lopressor 12.5 mg by mouth 3 times a day -Acute postprocedure blood loss anemia as expected from surgery Iron supplementation Lopressor. Liquid diet. Incentive spirometry. Check oxygen status in the morning with activity.
[2021-12-14] MEDS: FERROUS SULFATE 325 MG TAB PO SCH (18:25)
[2021-12-15] MEDS: LEVOTHYROXINE 100 MCG TAB PO SCH (04:00)
[2021-12-15] MEDS: PIPERACILLIN-TAZOBACTAM 3.375 GM in SODIUM CHLORIDE 0.9% 100 ML IVPB SCH ×2 (04:00→11:36)
[2021-12-15 07:19] VITALS: BP 123/79; PULSE 89; RESP 18; TEMP 97.9
--- NOTE | 2021-12-15 08:06 | XR ---
EXAMINATION TYPE: XR chest 1V portable DATE OF EXAM: 12/15/2021 COMPARISON: Chest x-ray 12/13/2021 HISTORY: Shortness of breath TECHNIQUE: Single frontal view of the chest is obtained. FINDINGS: Findings are similar to prior exam. Minimal left apical pneumothorax is present. Bibasilar increased attenuation persists. Heart is obscured. IMPRESSION: Correlate for pneumonia versus atelectasis, probable associated pleural effusion. Minima l left apical pneumothorax.
[2021-12-15] MEDS: FERROUS SULFATE 325 MG TAB PO SCH (09:07)
[2021-12-15] MEDS: ENOXAPARIN 40 MG/0.4 ML SYRINGE SQ SCH (09:07)
[2021-12-15] MEDS: METOPROLOL TARTRATE 12.5 MG TAB PO SCH (09:07)
[2021-12-15] MEDS: amLODIPine 10 MG TAB PO SCH (09:07)
[2021-12-15] MEDS: PANTOPRAZOLE 40 MG/10 ML VIAL IVP SCH (09:57)
--- NOTE | 2021-12-15 12:35 | P.DS ---
Providers Date of admission: 12/08/21 13:50 Expected date of discharge: 12/15/21 Attending physician: Lacho Hagan Consults: 12/08/21 11:19 Consult Physician Routine Consulting Provider: Lyly Hammer Consult Reason/Comments: Medical management Do you want consulting provider notified?: Yes 12/09/21 13:06 Consult Physician Routine Consulting Provider: Abdoulaye Wood Consult Reason/Comments: massive hiatal hernia, SOB Do you want consulting provider notified?: Yes 12/13/21 11:16 Consult Physician Routine Consulting Provider: Mckay Bernard Consult Reason/Comments: recurrent episodes non-sustained V-Tach and tachycardia Do you want consulting provider notified?: Yes Primary care physician: Jossue Galloway Hospital Course: Discharge diagnosis 1. Large paraesophageal hernia with incarcerated stomach colon and omentum status post diagnostic laparoscopy and open repair of paraesophageal hernia with mesh 2. Left-sided pneumothorax likely secondary to patient's surgery. 3. Leukocytosis resolved 4. Nonsustained ventricular tachycardia evaluated by cardiology 5. Hypomagnesemia improved Hospital course This is a 75-year-old female with dysphagia and evidence of a large hiatal hernia with intrathoracic stomach. She is status post diagnostic laparoscopy and open repair of paraesophageal hernia with mesh for Large paraesophageal hernia with incarcerated stomach colon and omentum. Patient tolerated surgery well. Her pain is controlled. She is tolerating full liquid diet. She has been up and ambulating. She is afebrile. Patient did have some tachycardia during this admission with evidence of nonsustained atrial tachycardia. Patient was evaluated by cardiology and they placed her on a beta roldan. Patient also seen by pulmonary service and medicine service during this admission. Patient cleared by all consulting physicians for discharge. Patient has been up and ambulating. She is requiring to go home on oxygen. Patient is stable for d ischarge. Incision sites clean dry and intact. Please refer to chart for any further details. Physician Ditcher Operator note has been reviewed by physician. Signing provider agrees with the documented findings, assessment, and plan of care. Patient Condition at Discharge: Stable Plan - Discharge Summary Discharge Rx Participant: Yes New Discharge Prescriptions: New Albuterol Inhaler [Ventolin Hfa Inhaler] 2 puff INHALATION RT-TID #8 gm Metoprolol Tartrate [Lopressor] 12.5 mg PO TID 30 Days #90 tab Ferrous Sulfate [Iron (65 MG Elemental)] 325 mg PO BID-W/MEALS #60 tab HYDROcodone/APAP 5-325MG [[place] 5-325] 1 tab PO Q6HR PRN 3 Days #12 tab PRN Reason: Pain Continue Levothyroxine Sodium [Synthroid] 100 mcg PO QAM Multivitamin [Multivitamins Adult Gummies] 1 each PO QAM Calcium Carbonate [Tums] 500 - 1,000 mg PO QID PRN PRN Reason: GERD Magnesium 250 mg PO DAILY Changed amLODIPine [Norvasc] 10 mg PO QAM #0 Discharge Medication List Levothyroxine Sodium [Synthroid] 100 mcg PO QAM 08/03/16 [History] Multivitamin [Multivitamins Adult Gummies] 1 each PO QAM 05/24/18 [History] Magnesium 250 mg PO DAILY 11/15/21 [History] Calcium Carbonate [Tums] 500 - 1,000 mg PO QID PRN 12/07/21 [History] Metoprolol Tartrate [Lopressor] 12.5 mg PO TID 30 Days #90 tab 12/14/21 [Rx] Albuterol Inhaler [Ventolin Hfa Inhaler] 2 puff INHALATION RT-TID #8 gm 12/15/21 [Rx] Ferrous Sulfate [Iron (65 MG Elemental)] 325 mg PO BID-W/MEALS #60 tab 12/15/21 [Rx] HYDROcodone/APAP 5-325MG [[place] 5-325] 1 tab PO Q6HR PRN 3 Days #12 tab 12/15/21 [Rx] amLODIPine [Norvasc] 10 mg PO QAM #0 12/15/21 [Rx] Follow up Appointment(s)/Referral(s): [facility] [NON-STAFF] - As Needed [facility] [NON-STAFF] - As Needed (oxygen ) Jossue Galloway DO [Primary Care Provider] - 1 Week Lacho Hagan MD [STAFF PHYSICIAN] - 1 Week Activity/Diet/Wound Care/Special Instructions: No driving while taking [place] No lifting over 10 pounds Shower daily. No soaking or tub baths for 2 weeks Very light activity until you are reevaluated at your follow up appointment with your surgeon No straws or carbonated beverages Continue a full liquid diet until seen by surgeon Discharge Disposition: HOME WITH HOME HEALTH SERVICES
[2021-12-15 13:58] VITALS: BMI 32.8
--- NOTE | 2021-12-15 14:14 | P.PN ---
Subjective Progress Note Date: 12/15/21 This is a very pleasant 75-year-old female patient with a known history of hypertension, hypothyroidism, hearing disorder, left breast cancer status post lumpectomy, chemo/radiation in 2016. She was also found to have a large hiatal hernia with intra-thoracic stomach and presented here on 12/08/2021 for an elective laparoscopic surgical repair. During the procedure the hernia was found to contain the entire stomach and transverse colon and a significant portion of the omentum. Several attempts were made to reduce the hernia however it wasn't possible laparoscopically and was converted to an open procedure. The patient was having more significant shortness of breath and we're consulted for the same. Chest x-ray today reveals a left-sided pneumothorax measuring approximately 15%. Bilateral lower lobe infiltrate and small effusion. Left infrahilar consolidation or mass was noted. White count 17.7. Hemoglobin 13.1. Sodium 137. Potassium 4.5. BUN 18. Creatinine 0.88. Glucose 112. She is seen today in consultation on the regular medical floor. She is currently sitting up in bed. Awake and alert in no acute distress. He is currently on 3 L nasal cannula with O2 saturations at 95%. Educated regarding the importance of the incentive spirometer. This is postoperative day #2. She's been initiated on Zosyn. Lovenox for DVT prophylaxis. Lactated Ringer's at 125 ML's per hour. She remains nothing by mouth. The patient is seen today 12/11/2021 in follow-up on the regular medical floor. She is currently sitting up in a chair at the bedside. Awake and alert in no acute distress. She is still maintaining good O2 saturations in the 90s on 4 L/m per nasal cannula. She has lactated Ringer's running at 125 ML's per hour. She remains nothing by mouth though surgical services have been answered to clear liquids today. CAT scan from yesterday revealed a large left-sided hydropneumothorax, bilateral pleural effusions. Pneumoperitoneum. She does remain stable. No interventions were recommended at this time. She is on Lovenox for DVT prophylaxis. Protonix for GI prophylaxis. Remains on antibiotics in the form of Zosyn. The patient is seen today 12/12/2021 in follow-up on the regular medical floor. She is resting comfortably in bed. Awake and alert in no acute distress. Chest x-ray showing bibasilar atelectasis, similar left hydropneumothorax. Small ri ght pleural effusion.. She is encouraged regarding the increased use the incentive spirometer. Maintaining O2 saturations in the 90s on 4 L/m per nasal cannula. White count 7.2. Hemoglobin 10.4. Platelets 271. Sodium 138. Potassium 3.9. BUN 5. Creatinine 0.5. Glucose 74. She is continued on a lactated Ringer's at 125. Currently on a full liquid diet. Passing flatus. Remains on Zosyn. Lovenox for DVT prophylaxis. Protonix for GI prophylaxis. Continued on Reglan as needed. On 12/13/2021 patient seen in follow-up on medical surgical floor. She is awake and alert, in no acute distress, breathing comfortably. On 4 L of oxygen pulse ox is 92-93%, been afebrile overnight, blood pressure stable. Chest x-ray from today is still pending. Patient is postop day #5 status post laparoscopic surgical repair of a large hiatal hernia with intrathoracic stomach, transverse colon and significant portion of the omentum. Patient is doing well, no specific complaint, remains on Zosyn for abiotic coverage, Ms. on IV fluids with lactated Ringer steroid to 125 ML per hour. Today's labs are still pending for today. Patient denies any significant shortness of breath. Vital signs have been stable, denies significant abdominal pain. She is on full liquid diet. On 12/14/2021 patient seen in follow-up on medical surgical floor, she denies any worsening dyspnea, she is on 2 L of oxygen pulse ox is 96%, she has been working on her incentive spirometer, today she is having some frequent bouts of diarrhea. No abdominal pain, yesterday's chest x-ray showing stable bilateral infiltrates and pleural effusion with approximately 10% left-sided hydropneumothorax which is improved from prior exam. Today's labs have been reviewed, white blood cell count is 6.21, hemoglobin is 11.5, electrolytes are within normal limits, BUN is 4.9, creatinine 0.5. Patient has been ambulating to the bathroom, tolerating activity well. She remains on Zosyn, she's had no fever or chills The patient is seen today 12/16/1999 follow-up on the regular medical floor. She is currently sitting up in bed. Awake and alert in no acute distress. She is maintaining O2 saturations in the 90s on room air. She's been afebrile. Hemodynamically stable. Follow-up chest x-ray revealed atelectasis with small effusions. Minimal left apical pneumothorax. Working well with the incentive spirometer. Pulling approximately 2000 ml. No new labs today. Her pain is well controlled. She is continued on Zosyn. Objective - Vital Signs Vital signs: Vital Signs Temp 97.9 F 12/15/21 07:08 Pulse 89 12/15/21 07:08 Resp 18 12/15/21 08:00 BP 123/79 12/15/21 07:08 Pulse Ox 95 12/15/21 07:08 Intake & Output 12/14/21 12/15/21 12/15/21 18:59 06:59 18:59 Weight 103.6 kg Other: Voiding Method Toilet Toilet Toilet # Voids 7 2 # Bowel Movements 5 - Exam GENERAL EXAM: Alert, very pleasant 75-year-old female, on room air, comfortable in no apparent distress. HEAD: Normocephalic. EYES: Normal reaction of pupils, equal size. NOSE: Clear with pink turbinates. THROAT: No erythema or exudates. NECK: No masses, no JVD. CHEST: No chest wall deformity. LUNGS: Equal air entry with crackles in the bilateral bases. CVS: S1 and S2 normal with no audible murmur, regular rhythm. ABDOMEN: Surgical sites clean dry well approximated. No hepatosplenomegaly, normal bowel sounds, no guarding or rigidity. SPINE: No scoliosis or deformity SKIN: No rashes CENTRAL NERVOUS SYSTEM: No focal deficits, tone is normal in all 4 extremities. EXTREMITIES: There is no peripheral edema. No clubbing, no cyanosis. Peripheral pulses are intact. - Labs CBC & Chem 7: 12/14/21 05:02 12/14/21 05:02 Assessment and Plan Assessment: 1 Dysphagia and shortness of breath secondary to a large hiatal hernia. Elective surgery 12/10/2021. Found to have a large paraesophageal hernia which contained the entire stomach and transverse colon and a significant portion of the omentum. Laparoscopic procedure transitioned to an open procedure. Computed tomography scan of the chest revealed a pneumoperitoneum. Stable. 2 Large left-sided hydropneumothorax most likely related to recent surgery. Reed ateral lower lobe infiltrate and small effusion. Improved. Follow up chest x- ray reveals a tiny left apical pneumothorax. 3 History of left-sided breast cancer status post lumpectomy and chemo/radiation and 2016 4 Hypothyroidism 5 Hearing disorder 6 Remote history of smoking Plan: The patient was seen and evaluated Chest x-ray reviewed Stable small left apical pneumothorax Plan is to discharge home today Follow-up in the office in 1 weeks I have personally seen and examined the patient, performed the documentation and the assessment and plan as written. Number of minutes spent on the visit: 10. I have personally seen and examined the patient and reviewed the documentation. I performed a joint evaluation with the nurse practitioner in this evaluation was done more than 10 minutes. I fully agree with the documentation above and the plan of care. The patient is to be discharged to be followed up on outpatient basis
--- NOTE | 2021-12-15 19:40 | P.PN ---
Progress Note - Text Progress Note Date: 12/15/21 Hospital course: Presented with shortness of breath. Large paraesophageal hernia with incarcerated stomach colon and omentum status post diagnostic laparoscopy and open repair of paraesophageal hernia with mesh. December 13: Patient does not have a BM. Has had some vomiting. Has abdominal pain. Did pass some flatus. Had a possible episode of nonsustained V. tach. Cardiology consulted. Full liquid diet December 14: Full liquid diet. Incentive spirometry. Abdominal pain a bit better. On beta roldan. Increase activity. December 15: Tolerating diet. Stable on current medications. Discussed with patient. Cleared by cardiology. Current medications reviewed On examination: VITAL SIGNS: 97.9, 89, 18, 123/79, 95 GENERAL APPEARANCE: reclining in bed, HEENT: Normal external appearance of nose and ear. Oral cavity normal EYES: Pupils equal. Conjunctiva normal. NECK: JVD not raised. Mass not palpable. RESPIRATORY: Respiratory effort normal. Lungs clear to auscultation. CARDIOVASCULAR: First and second sounds normal. No edema. ABDOMEN: Soft. Tender, binder Liver and spleen not palpable. . No mass palpable. Bowel sounds present PSYCHIATRY: Alert and oriented x3. Mood and affect normal INVESTIGATIONS, reviewed in the clinical context: December 14: White count 6.2 hemoglobin 11.5 crit is 24 potassium 3.5 creatinine 0.5 White count 5.9 hemoglobin 13 platelets 340 sodium 136 potassium 4.7 creatinine 0.57 Chest x-ray: 10% left-sided hydropneumothorax. Bilateral infiltrates. 2-D echocardiogram: EF 50-55% CT chest: Large left-sided hydropneumothorax. Bilateral pleural effusions. Pneumoperitoneum. Assessment plan: -Large paraesophageal hernia with incarcerated stomach colon and omentum status post diagnostic laparoscopy and open repair of paraesophageal hernia with mesh. December [address] Hagan. Currently on liquid diet. -Essential hypertension Norvasc 10 mg a day -Hypothyroid Synthroid 100 g a day -Hard of hearing -Hypoalbuminemia, acute phase reactant -Left-sided hydropneumothorax, secondary to abdominal surgery -Bilateral pleural effusions secondary to IV fluids Follow closely -Possible non-sustained V. tach: Seen by Cardiology Lopressor 12.5 mg by mouth 3 times a day -Acute postprocedure blood loss anemia as expected from surgery Iron supplementation Discussed with patient. Continue current medication treatment plan.
== END 2021-12-15 14:40 | disposition home health service (06) | DRG 327 ==
LOC: OR 07:03 → 4SSUR 13:50
PROVIDERS: ADMIT Surgery; ATTEND Surgery
PROC: 0BUT0JZ Supplement Diaphragm with Synthetic Substitute, Open Approach (ICD-10-PCS; principal; 2021-12-08 08:45)
PROC: 0BJT4ZZ Inspection of Diaphragm, Percutaneous Endoscopic Approach (ICD-10-PCS; principal; 2021-12-08 08:45)
DX: K44.0 Diaphragmatic hernia with obstruction, without gangrene (principal); I47.2 Ventricular tachycardia; J90 Pleural effusion, not elsewhere classified; I47.1 Supraventricular tachycardia; J93.9 Pneumothorax, unspecified; J98.11 Atelectasis; D62 Acute posthemorrhagic anemia; E88.09 Other disorders of plasma-protein metabolism, not elsewhere classified; R09.02 Hypoxemia; E03.9 Hypothyroidism, unspecified; R13.10 Dysphagia, unspecified; I10 Essential (primary) hypertension; E83.42 Hypomagnesemia; D72.829 Elevated white blood cell count, unspecified; H91.90 Unspecified hearing loss, unspecified ear; Z79.890 Hormone replacement therapy; Z79.899 Other long term (current) drug therapy; Z53.31 Laparoscopic surgical procedure converted to open procedure; Z87.891 Personal history of nicotine dependence; Z85.3 Personal history of malignant neoplasm of breast; Z92.21 Personal history of antineoplastic chemotherapy; Z92.3 Personal history of irradiation; Z90.12 Acquired absence of left breast and nipple; Z90.710 Acquired absence of both cervix and uterus; Z98.890 Other specified postprocedural states; Z71.3 Dietary counseling and surveillance; Z88.5 Allergy status to narcotic agent; Z80.8 Family history of malignant neoplasm of other organs or systems; Z80.3 Family history of malignant neoplasm of breast; Z80.0 Family history of malignant neoplasm of digestive organs
CPT/HCPCS: 71045; 71260; 80048; 80053; 83735; 84439; 84443; 85025; 85027; 86850; 86900; 86901; 88302; 93005; 93306; 94760

== ENCOUNTER 2022-01-05 16:07 | Emergency (ER) | payer MEDICARE ==
[2022-01-05] MEDS ORDERED: SODIUM CHLORIDE 0.9% 500 ML 500 ML IV STA (19:31)
--- NOTE | 2022-01-05 19:43 | ED ---
General Adult HPI - General Chief complaint: Nausea/Vomiting/Diarrhea Stated complaint: Procedure done 12/08 Consistant Diarrhea Time Seen by Provider: 01/05/22 19:20 Source: patient, family, RN notes reviewed, old records reviewed Mode of arrival: wheelchair Limitations: no limitations - History of Present Illness Initial comments: 76-year-old female presents to the emergency room with complaints of abdominal cramping and diarrhea for the past 3 days. Patient underwent a hernia repair on December 08 and was discharged on December 14. She had has not had a bowel movement in the past couple days so she took a Colace and then started to have diarrhea in small amounts. She has also had decreased appetite. She denies any fevers. She does have nausea but no vomiting. She is passing gas. -: days(s) (3) Location: abdomen Radiation: non-radiation Severity scale (1-10): 2 Quality: other (cramping) Consistency: intermittent Improves with: other (bowel movement) Worsens with: none Associated Symptoms: loss of appetite, nausea/vomiting (no vomiting), other (diarrhea) Treatments Prior to Arrival: other (colace) - Related Data Home Medications Medication Instructions Recorded Confirmed Levothyroxine Sodium [Synthroid] 100 mcg PO QAM 08/03/12/08/21 Multivitamin [Multivitamins Adult 1 each PO QAM 05/24/18 12/08/21 Gummies] Magnesium 250 mg PO DAILY 11/15/21 12/08/21 Calcium Carbonate [Tums] 500 - 1,000 mg PO QID PRN 12/07/21 12/08/21 Previous Rx's Medication Instructions Recorded Metoprolol Tartrate [Lopressor] 12.5 mg PO TID 30 Days #90 tab 12/14/21 Albuterol Inhaler [Ventolin Hfa 2 puff INHALATION RT-TID #8 gm 12/15/21 Inhaler] Ferrous Sulfate [Iron (65 MG 325 mg PO BID-W/MEALS #60 tab 12/15/21 Elemental)] HYDROcodone/APAP 5-325MG [[place] 1 tab PO Q6HR PRN 3 Days #12 tab 12/15/21 5-325] amLODIPine [Norvasc] 10 mg PO QAM #0 12/15/21 Ciprofloxacin HCl [Cipro] 500 mg PO Q12HR 7 Days #14 tablet 01/05/22 metroNIDAZOLE [Flagyl] 500 mg PO TID 7 Days #21 tab 01/05/22 Allergies Allergy/AdvReac Type Severity Reaction Status Date / Time codeine Allergy Nausea & Verified 01/05/22 17:22 Vomiting Review of Systems ROS Statement: Those systems with pertinent positive or pertinent negative responses have been documented in the HPI. ROS Other: All systems not noted in ROS Statement are negative. 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; neoadjuvant chemo tx; taxol tx; left breast lumpectomy with SNB 01/31/17; radiation tx; hypothyroid; when eating has trouble breathing; edema feet w/ c/o pain in knees History of Any Multi-Drug Resistant Organisms: None Reported Past Surgical History: Breast Surgery, Hysterectomy Additional Past Surgical History / Comment(s): Left breast biopsy x2 07/15/16 & 08/15/16; right internal jugular mediport 08/05/16; left breast lumpectomy with SND 01/31/17; Colonoscopy; EGD 11/18/21 Past Anesthesia/Blood Transfusion Reactions: Motion Sickness, Postoperative Nausea & Vomiting (PONV) Additional Past Anesthesia/Blood Transfusion Reaction / Comment(s): no hx blood transfusion Past Psychological History: No Psychological Hx Reported Smoking Status: Former smoker Past Alcohol Use History: Rare Past Drug Use History: None Reported - Past Family History Mother Family Medical History: Cancer Additional Family Medical History / Comment(s): Melanoma Sister(s) Family Medical History: Cancer Additional Family Medical History / Comment(s): TWO SISTERS WITH BREAST CANCER, A THIRD SISTER WITH RECTAL CANCER. Father Family Medical History: Cancer Additional Family Medical History / Comment(s): Skin cancer. General Exam Limitations: no limitations General appearance: alert, in no apparent distress Head exam: Present: atraumatic Eye exam: Present: EOMI. Absent: scleral icterus, conjunctival injection, periorbital swelling ENT exam: Present: mucous membranes dry Neck exam: Present: normal inspection, full ROM. Absent: tenderness, meningismus Respiratory exam: Present: normal lung sounds bilaterally. Absent: respiratory distress, chest wall tenderness, accessory muscle use Cardiovascular Exam: Present: tachycardia GI/Abdominal exam: Present: soft, tenderness, normal bowel sounds, other (Midline surgical scar intact with no evidence of erythema or drainage). Absent: distended, guarding, rebound, rigid Extremities exam: Present: pedal edema (Bilateral lower extremity edema). Absent: tenderness, calf tenderness Back exam: Present: normal inspection, full ROM. Absent: tenderness, CVA tenderness (R), CVA tenderness (L), rash noted Neurological exam: Present: alert, oriented X3 Psychiatric exam: Present: normal affect, normal mood Skin exam: Present: warm, dry, pallor, other (Bruising to the mid lower abdomen). Absent: cyanosis, diaphoretic, petechiae Course Vital Signs 01/05/22 01/05/22 01/05/22 17:14 21:22 21:46 Temperature 97.4 F L Pulse Rate 125 H 120 H 118 H Respiratory 20 17 17 Rate Blood Pressure 122/70 O2 Sat by Pulse 96 98 99 Oximetry 01/05/22 23:00 Temperature 98.2 F Pulse Rate 112 H Respiratory 19 Rate Blood Pressure 130/65 O2 Sat by Pulse 98 Oximetry Medical Decision Making - Medical Decision Making Hemoglobin and hematocrit are stable. Potassium is 3.3 and she was given supplementation in the emergency room. Patient was given [address] was performed of the abdomen and pelvis showing mild inflammatory changes in the sigmoid colon compatible with diverticulitis. She was started on antibiotics and a prescription provided. Patient wishes to be discharged home. Strict return parameters discussed with the patient to return if any persistent nausea vomiting, fevers, increased abdominal pain. She is agreeable to this plan of care. Case was discussed with Dr. Reddy. - Lab Data Result diagrams: 01/05/22 19:58 01/05/22 19:58 Lab Results 01/05/22 01/05/22 01/05/22 Range/Units 19:58 19:58 19:58 WBC 8.1 (3.8-10.6) k/uL RBC 4.89 (3.80-5.40) m/uL Hgb 14.0 (11.4-16.0) gm/dL Hct 43.7 (34.0-46.0) % MCV 89.4 (80.0-100.0) fL MCH 28.6 (25.0-35.0) pg MCHC 32.0 (31.0-37.0) g/dL RDW 15.3 (11.5-15.5) % Plt Count 410 (150-450) k/uL MPV 7.5 Neutrophils % 67 % Lymphocytes % 22 % Monocytes % 8 % Eosinophils % 1 % Basophils % 0 % Neutrophils # 5.4 (1.3-7.7) k/uL Lymphocytes # 1.8 (1.0-4.8) k/uL Monocytes # 0.6 (0-1.0) k/uL Eosinophils # 0.1 (0-0.7) k/uL Basophils # 0.0 (0-0.2) k/uL PT 10.9 (9.0-12.0) sec INR 1.0 (<1.2) APTT 25.4 (22.0-30.0) sec Sodium 132 L (137-145) mmol/L Potassium 3.3 L (3.5-5.1) mmol/L Chloride 97 L (98-107) mmol/L Carbon Dioxide 26 (22-30) mmol/L Anion Gap 9 mmol/L BUN 11 (7-17) mg/dL Creatinine 0.71 (0.52-1.04) mg/dL Est GFR (CKD-EPI)AfAm >90 (>60 ml/min/1.73 sqM) Est GFR (CKD-EPI)NonAf 84 (>60 ml/min/1.73 sqM) Glucose 99 (74-99) mg/dL Plasma Lactic Acid [place] (0.7-2.0) mmol/L Calcium 8.9 (8.4-10.2) mg/dL Total Bilirubin 0.7 (0.2-1.3) mg/dL AST 20 (14-36) U/L ALT 10 (4-34) U/L Alkaline Phosphatase 115 (38-126) U/L NT-Pro-B Natriuret Pep pg/mL Total Protein 6.3 (6.3-8.2) g/dL Albumin 3.1 L (3.5-5.0) g/dL Amylase 37 (30-110) U/L Lipase 51 (23-300) U/L 01/05/22 01/05/22 Range/Units 19:58 19:58 WBC (3.8-10.6) k/uL RBC (3.80-5.40) m/uL Hgb (11.4-16.0) gm/dL Hct (34.0-46.0) % MCV (80.0-100.0) fL MCH (25.0-35.0) pg MCHC (31.0-37.0) g/dL RDW (11.5-15.5) % Plt Count (150-450) k/uL MPV Neutrophils % % Lymphocytes % % Monocytes % % Eosinophils % % Basophils % % Neutrophils # (1.3-7.7) k/uL Lymphocytes # (1.0-4.8) k/uL Monocytes # (0-1.0) k/uL Eosinophils # (0-0.7) k/uL Basophils # (0-0.2) k/uL PT (9.0-12.0) sec INR (<1.2) APTT (22.0-30.0) sec Sodium (137-145) mmol/L Potassium (3.5-5.1) mmol/L Chloride (98-107) mmol/L Carbon Dioxide (22-30) mmol/L Anion Gap mmol/L BUN (7-17) mg/dL Creatinine (0.52-1.04) mg/dL Est GFR (CKD-EPI)AfAm (>60 ml/min/1.73 sqM) Est GFR (CKD-EPI)NonAf (>60 ml/min/1.73 sqM) Glucose (74-99) mg/dL Plasma Lactic Acid [place] 1.0 (0.7-2.0) mmol/L Calcium (8.4-10.2) mg/dL Total Bilirubin (0.2-1.3) mg/dL AST (14-36) U/L ALT (4-34) U/L Alkaline Phosphatase (38-126) U/L NT-Pro-B Natriuret Pep 300 pg/mL Total Protein (6.3-8.2) g/dL Albumin (3.5-5.0) g/dL Amylase (30-110) U/L Lipase (23-300) U/L Disposition Clinical Impression: Diverticulitis, Hypokalemia Disposition: HOME SELF-CARE Condition: Good Instructions (If sedation given, give patient instructions): Diverticulitis (ED), Acute Diarrhea (ED) Additional Instructions: Take antibiotics as prescribed and follow up with primary care doctor this week. Return to the emergency room if any new or concerning symptoms including persistent nausea vomiting, fevers or increased abdominal pain. Prescriptions: Ciprofloxacin HCl [Cipro] 500 mg PO Q12HR 7 Days #14 tablet metroNIDAZOLE [Flagyl] 500 mg PO TID 7 Days #21 tab Is patient prescribed a controlled substance at d/c from ED?: No Referrals: Jossue Galloway DO [Primary Care Provider] - 1-2 days Time of Disposition: 21:33
[2022-01-05 20:24] LABS: Basophils % (A) 0 %; Eosinophils # (A) 0.1 k/uL (0-0.7); Eosinophils % (A) 1 %; HCT 43.7 % (34.0-46.0); Lymphocytes # (A) 1.8 k/uL (1.0-4.8); Lymphocytes % (A) 22 %; MCH 28.6 pg (25.0-35.0); MCV 89.4 fL (80.0-100.0); Mean Platelet Volume 7.5; Monocytes # (A) 0.6 k/uL (0-1.0); Monocytes % (A) 8 %; Neutrophils # (A) 5.4 k/uL (1.3-7.7); Neutrophils % (A) 67 %; Platelet Count 410 k/uL (150-450); RBC 4.89 m/uL (3.80-5.40); RDW 15.3 % (11.5-15.5); WBC 8.1 k/uL (3.8-10.6)
[2022-01-05 20:31] LABS: ALT 10 U/L (4-34); AST 20 U/L (14-36); African American GFR (CKD) >90 (>60 ml/min/1.73 sqM); Albumin 3.1 g/dL (3.5-5.0); Alkaline Phosphatase 115 U/L (38-126); Amylase 37 U/L (30-110); Anion Gap 9 mmol/L; Blood Urea Nitrogen 11 mg/dL (7-17); Calcium 8.9 mg/dL (8.4-10.2); Carbon Dioxide 26 mmol/L (22-30); Chloride 97 mmol/L (98-107); Glucose 99 mg/dL (74-99); Lipase 51 U/L (23-300); Non-African American GFR(CKD) 84 (>60 ml/min/1.73 sqM); Potassium 3.3 mmol/L (3.5-5.1); Sodium 132 mmol/L (137-145); Total Bilirubin 0.7 mg/dL (0.2-1.3); Total Protein 6.3 g/dL (6.3-8.2)
[2022-01-05 20:34] LABS: Partial Thromboplastin Time 25.4 sec (22.0-30.0); Prothrombin Time 10.9 sec (9.0-12.0)
--- NOTE | 2022-01-05 21:01 | CT ---
EXAMINATION TYPE: CT abdomen pelvis wo con DATE OF EXAM: 01/05/2022 COMPARISON: 12/10/2021 and prior HISTORY: Abdominal pain post diaphramic hernia sx. Chronic diarrhea CT DLP: 1068.4 mGycm Automated exposure control for dose reduction was used. TECHNIQUE: Helical acquisition of images was performed from the lung bases through the pelvis. FINDINGS: LUNG BASES: Small to moderate bilateral pleural effusions with adjacent moderate atelectasis. LIVER/GB: No acute abnormality is appreciated. Cholelithiasis without acute cholecystitis. PANCREAS: No significant abnormality is seen. SPLEEN: No significant abnormality is seen. ADRENALS: No acute abnormality is seen. Unchanged 16 mm left adrenal nodule. KIDNEYS: No acute abnormality is seen. Stable markedly dilated right renal pelvis versus parapelvic c yst. Associated mild renal cortical atrophy. No left hydronephrosis or bilateral nephrolithiasis. FREE AIR: No free air is visualized RETROPERITONEAL ADENOPATHY: None visualized REPRODUCTIVE ORGANS: No significant abnormality is seen URINARY BLADDER: No significant abnormality is seen. PELVIC ADENOPATHY: None visualized. OSSEOUS STRUCTURES: No significant abnormality is seen. BOWEL: Subtle mild fat stranding involving the sigmoid colonic diverticula. No bowel obstruction. No acute appendicitis. OTHER: Stable 4.6 cm simple appearing left adnexal cystic lesion. IMPRESSION: STATUS POST DIAPHRAGMATIC HERNIA REPAIR. SUBTLE MILD INFLAMMATORY CHANGES INVOLVING THE SIGMOID COLONIC DIVERTICULA, COMPATIBLE WITH ACUTE DIV ERTICULITIS. NO BOWEL OBSTRUCTION. STABLE CHRONIC FINDINGS INCLUDING MARKED DILATED RIGHT RENAL PELVIS, LEFT ADRENAL NODULE AND LEFT ADN EXAL CYSTIC LESION. SMALL TO MODERATE BILATERAL PLEURAL EFFUSIONS.
--- NOTE | 2022-01-05 21:02 | XR ---
EXAMINATION TYPE: XR chest 2V DATE OF EXAM: 01/05/2022 COMPARISON: 12/15/2021 HISTORY: Dyspnea TECHNIQUE: Frontal and lateral views of the chest are obtained. FINDINGS: There are small to moderate left greater than right pleural effusions with adjacent opacit ies. No pneumothorax seen. The cardiac silhouette size is mildly prominent. The osseous structures are intact. IMPRESSION: Bilateral pleural effusions.
[2022-01-05] MEDS ORDERED: SODIUM CHLORIDE 0.9% 500 ML 500 ML IV ONE (21:28)
[2022-01-05] MEDS ORDERED: POTASSIUM CHLORIDE ER 20 MEQ TAB.ER PO STA (21:28)
[2022-01-05] MEDS ORDERED: metroNIDAZOLE 500 MG TAB PO STA (21:30)
[2022-01-05] MEDS ORDERED: CIPROFLOXACIN HCL 500 MG TAB PO STA (21:30)
[2022-01-05] MEDS ORDERED: POTASSIUM BICARBONATE/CIT AC 20 MEQ TABLET.EFF PO ONE (21:43)
[2022-01-06 00:38] VITALS: BP 130/65; PULSE 112; RESP 19; TEMP 98.2
== END 2022-01-05 23:00 | disposition home or self-care (01) ==
LOC: EC 16:07
DX: K57.92 Diverticulitis of intestine, part unspecified, without perforation or abscess without bleeding (principal); E87.6 Hypokalemia; I10 Essential (primary) hypertension; E07.9 Disorder of thyroid, unspecified; Z79.1 Long term (current) use of non-steroidal anti-inflammatories (NSAID); Z88.5 Allergy status to narcotic agent
CPT/HCPCS: 36415; 71046; 74176; 80053; 82150; 83605; 83690; 83880; 85025; 85610; 85730; 96360; 96361; 99284

== ENCOUNTER → 2022-07-11 | Outpatient (CLI) | payer MEDICARE ==
--- NOTE | 2022-07-11 11:48 | MM ---
Reason for Exam: Hx of breast cancer, conservation therapy. Last mammogram was performed 1 year(s) and 4 month(s) ago. Patient History: Menarche at age 13. First Full-Term at age 23. Hysterectomy at age 39. Postmenopausal. Breast cancer, left, age 70. Previous chest radiation therapy at age 70. Previous chemotherapy at age 70. Progesterone for 2 months. 01/31/2017, Lumpectomy on the Left side. 07/26/2016, Benign Core Biopsy on the right side. 07/15/2016, Malignant Core Biopsy on the left side. 12/22/2016, Chemotherapy. 01/2016, Radiation Therapy on the left side. Sister had breast cancer, age 65. Sister had breast cancer, age 71. Prior Study Comparison: 01/11/2017 Bilateral Diagnostic Mammogram, [facility]. 11/16/2017 Bilateral Diagnostic Mammogram, [facility]. 03/05/2020 Bilateral Diagnostic Mammogram, [facility]. 03/09/2021 Bilateral Diagnostic Mammogram, [facility]. Tissue Density: The breast tissue is heterogeneously dense. This may lower the sensitivity of mammography. Findings: Analyzed By CAD. Postoperative changes of left-sided lumpectomy and radiation therapy. No evidence for new mass. No suspicious calcifications. Overall Assessment: Benign, BI-RAD 2 Management: Diagnostic Mammogram of both breasts in 1 year. A clinical breast exam by your physician is recommended on an annual basis and results should be correlated with mammographic findings. This exam should not preclude additional follow-up of suspicious palpable abnormalities. Results were given to the patient verbally at the time of exam. Electronically signed and approved by: Manolo Buitrago M.D. Radiologis
== END | disposition home or self-care (01) ==
LOC: RADMAMWWP 10:50
PROVIDERS: ATTEND Surgery
DX: Z78.0 Asymptomatic menopausal state (principal); Z85.3 Personal history of malignant neoplasm of breast; Z80.3 Family history of malignant neoplasm of breast; Z92.3 Personal history of irradiation
CPT/HCPCS: 77066; G0279; 77062

== ENCOUNTER → 2022-07-28 | Outpatient (CLI) | payer MEDICARE ==
[2022-07-28 15:18] VITALS: BP 136/80; PULSE 109; RESP 18; TEMP 98
--- NOTE | 2022-07-28 15:35 | P.PN ---
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 This was following neoadjuvant chemotherapy with AC followed by T. She then underwent radiation therapy which she completed on . On pathology she was noted to have a single focus of invasive cancer measuring less than 2 mm of the metaplastic subtype. She is not taking any anti-hormone therapy. The patient at this time does not have any skin changes of concern, she does not feel any lumps or masses in her breast. She is complaining of some shortness of breath. She has had the shortness of breath for the past several years. She was seen by DR. Quijano and was told she had a hiatal hernia. At this time she is not interested in following with a surgeon. She believes her shortness of breath is related to the hiatal hernia. She is not interested in surgery at this time secondary to the gil virus. Computed tomography scan was performed of the chest on 12120828 which showed a large marganii hernia into the left lower lung field. The patient's last bilateral mammogram was 03-05-20, this was benign BIRADS 2. She continues to follow with Dr. Quinonez (medical oncology) and radiation oncology. 07-28-22 Patient is 76 year old status post left breast lumpectomy for a metaplastic breast cancer. She had a bilateral mammogrma on 07-11-22 which was BIRAD 2. She is not complaining of any lumps, masses or nodules of concern. She is complaining of some dry skin at the anterior left breast radiated tissue. Family History: 1. sister: Breast cancer in 60s 2. sister: Rectal cancer 3. second sister with breast cancer 72 4. Mother: Melanoma 5: Father: Skin cancer on his arms Hormonal history: Menarche: 14 , first live at 23, patient did not breast feed Menopause: Partial hysterectomy at 39 both ovaries left hormones: premarin for several months 20 years ago Surgical history: left breast lumpectomy and SNB partial hysterectom mediport placed and removed hiatal hernia repair Medical History: hypothyroid HTN decreased hearing hiatal hernia Systems: HEENT: Decreased hearing Lungs: Shortness of breath, this is attributed to large hiatal hernia Cardiovascular: Hypertension GI: Constipation intermittently : Status post hysterectomy Musculoskeletal: Negative Endocrine: Hypothyroid Neurologic: Negative Integument: rash under her breast intermittent ALLERGIES: codiene Hematologic: Negative Objective - Vital Signs Vital signs: Vital Signs Temp 98.0 F 07/28/22 15:16 Pulse 109 H 07/28/22 15:16 Resp 18 07/28/22 15:16 BP 136/80 07/28/22 15:16 Pulse Ox 95 07/28/22 15:16 FiO2 Intake & Output 07/27/22 07/28/22 07/28/22 18:59 06:59 18:59 Weight 113.398 kg - Constitutional General appearance: Present: cooperative - EENT Eyes: Present: EOMI ENT: Present: hard of hearing - Neck Neck: Present: normal ROM - Respiratory Respiratory: bilateral: CTA - Cardiovascular Heart sounds: normal: S1, S2 - Gastrointestinal Gastrointestinal Comment(s): well healed scar/no guarding or rebound - Integumentary Integumentary Comment(s): In changes over left breast related to radiation/patch of dry skin on the anterior surface - Psychiatric Psychiatric: Present: A&O x's 3, appropriate affect, intact judgment & insight - Additional findings Additional findings: BRA 54 DD inpsection: ptosis grade 3 bilateral, asymmetry of the breast with left being smaller secondary to prior lumpectomy and radiation; patch of dry skin approximately 1 cm in size on the anterior surface of the left breast Palpation: Right breast: Multi-positional exam fibrocystic changes, no dominant masses or nodules of concern Right axilla: No adenopathy of concern Left breast: Multiple positional exam no dominant masses or nodules of concern, post operative and radiation changes noted, smaller than the right breast Left axilla: No adenopathy of concern Assessment and Plan Assessment: Impression: Patient status post left breast lumpectomy/radiation therapy/neoadjuvant chemotherapy 2016, no evidence of recurrent cancer at this t hypothyroid HTN decreased hearing hiatal hernia Family history of breast cancer obesity Plan: 1. Continue close surveillance 2. Bilateral mammogram in June 2023 3. Medical management of medical conditions 4. Follow-up medical oncology We have discussed the asymmetry of the breast. At this time the patient is not interested in a procedure to equalize the size of the breast. We have also discussed genetic counseling secondary to her family history at this time the patient is not concerned about genetic counseling. CC: DR. Galloway Additional CC's: Jossue Galloway
== END ==
LOC: WWCWWP 15:06
PROVIDERS: ATTEND Surgery
DX: Z90.12 Acquired absence of left breast and nipple (principal); E03.9 Hypothyroidism, unspecified; I10 Essential (primary) hypertension; Z92.3 Personal history of irradiation; Z92.21 Personal history of antineoplastic chemotherapy; E66.9 Obesity, unspecified; Z80.3 Family history of malignant neoplasm of breast; K44.9 Diaphragmatic hernia without obstruction or gangrene; H91.90 Unspecified hearing loss, unspecified ear; Z88.5 Allergy status to narcotic agent; Z87.891 Personal history of nicotine dependence; Z68.35 Body mass index [BMI] 35.0-35.9, adult

== ENCOUNTER → 2023-07-20 | Outpatient (CLI) | payer MEDICARE ==
[2023-07-20 11:54] VITALS: BP 126/78; PULSE 109; RESP 18; TEMP 98.4
--- NOTE | 2023-07-20 11:56 | P.PN ---
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 This was following neoadjuvant chemotherapy with AC followed by T. She then underwent radiation therapy which she completed on . On pathology she was noted to have a single focus of invasive cancer measuring less than 2 mm of the metaplastic subtype. She is not taking any anti-hormone therapy. The patient at this time does not have any skin changes of concern, she does not feel any lumps or masses in her breast. She is complaining of some shortness of breath. She has had the shortness of breath for the past several years. She was seen by DR. Quijano and was told she had a hiatal hernia. At this time she is not interested in following with a surgeon. She believes her shortness of breath is related to the hiatal hernia. She is not interested in surgery at this time secondary to the gil virus. Computed tomography scan was performed of the chest on [id number] which showed a large marganii hernia into the left lower lung field. The patient's last bilateral mammogram was 03-05-20, this was benign BIRADS 2. She continues to follow with Dr. Quinonez (medical oncology) and radiation oncology. 07-28-22 Patient is 76 year old status post left breast lumpectomy for a metaplastic breast cancer. She had a bilateral mammogrma on 07-11-22 which was BIRAD 2. She is not complaining of any lumps, masses or nodules of concern. She is complaining of some dry skin at the anterior left breast radiated tissue. 07-20-23 She is not complaining of any new lumps masses or nodules of concern in either breast. She had a bilateral mammogram on [id number] results are pending. 07-07-23 : Reviewed from Dr. Quinonez Family History: 1. sister: Breast cancer in 60s 2. sister: Rectal cancer 3. second sister with breast cancer 72 4. Mother: Melanoma 5: Father: Skin cancer on his arms Hormonal history: Menarche: 14 , first live at 23, patient did not breast feed Menopause: Partial hysterectomy at 39 both ovaries left hormones: premarin for several months 20 years ago Surgical history: left breast lumpectomy and SNB partial hysterectom mediport placed and removed hiatal hernia repair Medical History: hypothyroid HTN decreased hearing hiatal hernia Systems: HEENT: Decreased hearing Lungs: Shortness of breath, this is attributed to large hiatal hernia Cardiovascular: Hypertension GI: Constipation intermittently : Status post hysterectomy Musculoskeletal: Negative Endocrine: Hypothyroid Neurologic: Negative Integument: rash under her breast intermittent ALLERGIES: codiene Hematologic: Negative Objective - Vital Signs Vital signs: Vital Signs Temp 98.4 F 07/20/23 11:28 Pulse 109 H 07/20/23 11:28 Resp 18 07/20/23 11:28 BP 126/78 07/20/23 11:28 Pulse Ox 96 07/20/23 11:28 FiO2 Intake & Output 07/19/23 07/20/23 07/20/23 18:59 06:59 18:59 Weight 127.006 kg - Constitutional General appearance: Present: cooperative - EENT Eyes: Present: EOMI ENT: Present: hearing grossly normal - Neck Neck: Present: normal ROM - Respiratory Respiratory: bilateral: CTA - Cardiovascular Heart sounds: normal: S1, S2 - Integumentary Integumentary: Present: normal turgor - Psychiatric Psychiatric: Present: A&O x's 3, appropriate affect, intact judgment & insight - Additional findings Additional findings: BRA 54 DD inpsection: ptosis grade 3 bilateral, asymmetry of the breast with left being smaller secondary to prior lumpectomy and radiation; patch of dry skin approximately 1 cm in size on the anterior surface of the left breast Palpation: Right breast: Multi-positional exam fibrocystic changes, no dominant masses or nodules of concern Right axilla: No adenopathy of concern Left breast: Multiple positional exam no dominant masses or nodules of concern, post operative and radiation changes noted, smaller than the right breast Left axilla: No adenopathy of concern Assessment and Plan Assessment: Impression: Patient status post left breast lumpectomy/radiation therapy/neoadjuvant chemotherapy 2016, no evidence of recurrent cancer at this time hypothyroid HTN decreased hearing hiatal hernia Family history of breast cancer obesity Plan: 1. Continue close surveillance 2. Bilateral mammogram in June 2024 3. Medical management of medical conditions 4. Follow-up medical oncology We have discussed the asymmetry of the breast. She would like to consider bilateral mastectomy rather than a reduction of the right breast. She is going to consider this and let us know. CC: DR. Galloway
== END ==
LOC: WWCWWP 10:37
PROVIDERS: ATTEND Surgery
DX: E66.9 Obesity, unspecified (principal); E03.9 Hypothyroidism, unspecified; I10 Essential (primary) hypertension; K44.9 Diaphragmatic hernia without obstruction or gangrene; H91.90 Unspecified hearing loss, unspecified ear; Z85.3 Personal history of malignant neoplasm of breast; Z80.3 Family history of malignant neoplasm of breast; Z92.3 Personal history of irradiation; Z88.5 Allergy status to narcotic agent; Z79.890 Hormone replacement therapy; Z87.891 Personal history of nicotine dependence

== ENCOUNTER → 2023-07-20 | Outpatient (CLI) | payer MEDICARE ==
--- NOTE | 2023-07-20 14:46 | MM ---
Reason for Exam: Hx of breast cancer, conservation therapy. Last screening mammogram was performed 12 month(s) ago. Patient History: Menarche at age 13. First Full-Term at age 23. Hysterectomy at age 39. Postmenopausal. Breast cancer, left, age 70. Previous chest radiation therapy at age 70. Previous chemotherapy at age 70. Progesterone for 2 months. 01/31/2017, Lumpectomy on the Left side. 07/26/2016, Benign Core Biopsy on the right side. 07/15/2016, Malignant Core Biopsy on the left side. 12/22/2016, Chemotherapy. 01/2016, Radiation Therapy on the left side. Sister had breast cancer, age 65. Sister had breast cancer, age 71. Prior Study Comparison: 01/11/2017 Bilateral Diagnostic Mammogram, [facility]. 11/16/2017 Bilateral Diagnostic Mammogram, [facility]. 11/19/2018 Bilateral Diagnostic Mammogram, [facility]. 03/05/2020 Bilateral Diagnostic Mammogram, [facility]. 03/09/2021 Bilateral Diagnostic Mammogram, [facility]. 07/11/2022 Bilateral MG 3D diag mammo w/cad [place], [facility]. Tissue Density: The breast tissue is heterogeneously dense. This may lower the sensitivity of mammography. Findings: Analyzed By CAD. There is no evidence for mass or distortion. No suspicious microcalcifications are seen. Postoperative distortion left breast. Overall Assessment: Benign, BI-RAD 2 Management: Screening Mammogram of both breasts in 1 year. . Results were given to the patient verbally at the time of exam. Patient should continue monthly self-breast exams. A clinical breast exam by your physician is recommended on an annual basis. This exam should not preclude additional follow-up of suspicious palpable abnormalities. Note on Ada scores and lifetime risk: 1. A Ada score greater than 3% is considered moderate risk. If this is the case, consider specialist referral to assess eligibility for a risk reducing agent. 2. If overall lifetime risk for the development of breast cancer is 20% or higher, the patient may qualify for future screening with alternating mammogram and breast MRI. Electronically signed and approved by: Manolo Buitrago M.D. Radiologis
== END | disposition home or self-care (01) ==
LOC: RADMAMWWP 10:38
PROVIDERS: ATTEND Surgery
DX: R92.333 Mammographic heterogeneous density, bilateral breasts (principal); Z85.3 Personal history of malignant neoplasm of breast; Z80.3 Family history of malignant neoplasm of breast; Z78.0 Asymptomatic menopausal state
CPT/HCPCS: 77066; G0279; 77062